=== PATIENT | female | born 1960 | race Two or more races ===

== ENCOUNTER 2020-09-17 13:00 | Outpatient (REF) | payer MEDICAID, SELFPAY ==
--- NOTE | ~2020-09-17 | XR_ITS ---
EXAMINATION: XR HIP, LEFT CLINICAL INFORMATION: Pain COMPARISON: Previous x-ray August 2018 TECHNIQUE: Two views of the left hip. FINDINGS: Bone alignment is normal. No fracture or dislocation is seen. There is mild joint space narrowing at the left hip joint. Soft tissues are unremarkable. XR/XR hip LT min 2V IMPRESSION: Mild joint space narrowing at the left hip joint.
== END 2020-09-17 13:01 | disposition home or self-care (01) ==
LOC: HO.XRAY 13:00
PROVIDERS: PCP Internal Medicine; Visit Provider Internal Medicine
DX: M25.552 Pain in left hip (principal)
CPT/HCPCS: 73502

== ENCOUNTER → 2020-10-22 12:54 | Outpatient (BNVA) | payer MEDICAID, SELFPAY | PROVIDERS: PCP Internal Medicine; Visit Provider Physician Assistant | DX: M70.62 Trochanteric bursitis, left hip (principal) | CPT/HCPCS: 99202 ==

== ENCOUNTER 2020-12-18 08:48 | Emergency (ER) | payer MEDICAID, SELFPAY ==
--- NOTE | ~2020-12-18 | XR_ITS ---
EXAMINATION: XR CHEST CLINICAL INFORMATION: Right-sided chest pain. COMPARISON: 07/20/2019 chest radiographs. TECHNIQUE: Frontal view of the chest was obtained. FINDINGS: No significant abnormality is noted involving the heart, lungs, mediastinum, bony thorax or soft tissues. XR/XR chest 1V IMPRESSION: No acute cardiopulmonary process.
--- NOTE | 2020-12-18 09:03 | ECG_ITS ---
Test Reason : CHEST PAIN Blood Pressure : / mmHG Vent. Rate : 078 BPM Atrial Rate : 078 BPM P-R Int : 122 ms QRS Dur : 068 ms QT Int : 360 ms P-R-T Axes : 067 023 041 degrees QTc Int : 410 ms Normal sinus rhythm Normal ECG When compared with ECG of 20-JUL-2019 10:35, No significant change was found Referred By: Becka Rincon Electronically Signed By:Charlie Benoit
[2020-12-18 09:15] VITALS: BP 176/7; PULSE 80; RESP 18; O2SAT 96; BMI 82.7
--- NOTE | 2020-12-18 09:19 | ED_ITS ---
HPI - Chest Pain General Chief Complaint: General Medical Stated Complaint: CHEST PAIN Time Seen by Provider: 12/18/20 09:10 Source: patient Mode of arrival: ambulatory Limitations: no limitations History of Present Illness HPI narrative: 60 y/o female with history of DM, GERD and obesity presents to the ER with 2-3 weeks of right sided chest pain. She does not recall what she was doing when it started. It has been mostly constant and is worse with movement and palpation. She denies SOB, MICHAUD or cough. She denies N/V, diaphoresis or radiation of the pain. Her father of an [place] at 59 and her brother of a PE at 65. MD complaint: chest pain Onset (ago): week(s) (2-3) Timing of current episode: constant Prior episodes: No Pain location: right chest Pain radiation: none Severity: moderate Quality: aching Relieving factors: rest Exacerbating factors: palpation and movement Treatment prior to arrival: none Risk Factors Coronary artery disease risk factors: diabetes and hypertension Related Data Home Medications Medication Instructions Recorded Confirmed epinephrine 0.3 mg/0.3 mL 0.3 mg IM Q10M PRN 10/22/20 injection, auto-injector ibuprofen 200 mg capsule 400 mg PO Q8H 10/22/20 loratadine 10 mg capsule 10 mg PO DAILY 10/22/20 methocarbamol 500 mg tablet 500 mg PO TID 10/22/20 omeprazole 20 mg capsule,delayed 20 mg PO DAILY 10/22/20 release Previous Rx's Medication Instructions Recorded lidocaine [Lidoderm] 1 patch TOPICAL DAILY #15 ea 12/18/20 naproxen 500 mg PO BID PRN #20 tab 12/18/20 Allergies Allergy/AdvReac Type Severity Reaction Status Date / Time No Known Allergies Allergy Unknown Verified 10/22/20 13:24 [No Known Allergies*] Review of Systems Review of Systems: Constitutional: No Fever, No Chills ENT/Mouth: No sore throat, No Rhinorrhea, No Swallowing Difficulty Eyes: No Eye Pain, No Swelling, No Redness Cardiovascular: + Chest Pain, No SOB, No Orthopnea, No Edema Respiratory: No Cough, No Sputum, No Wheezing, No dyspnea Gastrointestinal: No Nausea, No Vomiting, No Diarrhea, No abdominal Pain, No Hematochezia, No Melena Genitourinary: No Dysuria, No Urinary Frequency, No Hematuria Musculoskeletal: No joint pain, + Myalgias Skin: No Skin Lesions, No rash Neuro: No Weakness, No Numbness, No Dizziness, No Headache Psych: No Anxiety/Panic, No Depression Heme/Lymph: No Bruising, No Lymphadenopathy Endocrine: No Polyuria, No Polydipsia [facility] Past Medical History Attestation statement: The following information was validated with the patient. Medical History Acid reflux Diabetes Social History Social History Alcohol intake: never Smoked in Last 30 Days: No Use of substances other than those prescribed or required for medical reasons: No Advance Directives: No Advance Directives Information Provided: No Physical Exam Vital Signs: Vital Signs: Last Vital Signs Pulse 80 12/18/20 09:15 Resp 18 12/18/20 09:15 BP 176/7 H 12/18/20 09:15 Pulse Ox 96 12/18/20 09:15 Body Mass Index 82.7 Appearance: Alert. Oriented X3. No acute distress. Eyes: Pupils equal, round and reactive to light. ENT: Pharynx normal. Neck: Normal inspection. Neck supple. CVS: Normal heart rate and rhythm. Pulses normal. Respiratory: No respiratory distress. Breath sounds normal. Right parasternal area with tenderness to palpation. No ecchymosis, no deformity, no skin changes. Abdomen: Soft and nontender. +BS x4 Skin: Skin warm and dry. Normal skin color. Normal skin turgor. No rashes. Extremities: No lower extremity edema. Neuro: Oriented X 3. No motor deficit. No sensory deficit. Course Course Course Narrative: 60 y/o female presenting with right sided chest pain x 2-3 weeks. It is reproducible on exam without radiation or respiratory symptoms. She is fully vaccinated against COVID. She appears well. BP elevated, reports is she is nervous to be in the hospital. Need to r/o ACS and PE given her family history and risk factors although given her clinical presentation this is less likely. Reevaluation(s) Reevaluation #1: Lab workup is unremarkable. Troponin and DDIMER are negative. CXR negative and labs are unremarkable. Painfree at this time. She is stable for discharge home with treatment for costochondritis/chest wall pain as her pain is likely MSK in nature. Patient agrees with plan and will return to ER if pain changes or worsens. MDM - Chest Pain Medical Records Data Attestation: I reviewed the patient's medical records. Lab Data Attestation: I reviewed the patient's lab results. Result diagrams: 12/18/20 09:48 12/18/20 09:48 Labs: Lab Results 12/18/20 12/18/20 12/18/20 Range/Units 09:48 09:48 09:48 WBC 4.7 L (4.8-10.8) X10*3/uL RBC 4.81 (4.20-5.50) X10*6/uL Hgb 13.9 (12.0-16.0) g/dl Hct 41.7 (37-47) % MCV 86.7 (80-98) fL MCH 28.9 (27.0-33.0) pg MCHC 33.3 (31.0-35.0) g/dl RDW 12.8 (11.0-16.0) % Plt Count 155 L (160-400) X10*3/uL MPV 11.9 (9.4-12.3) fL Immature Gran % (Auto) 0.2 (0.0-0.4) % Neut % (Auto) 62.1 (45-73) % Lymph % (Auto) 25.7 (20-40) % [place] % (Auto) 9.8 (2-11) % Eos % (Auto) 1.3 (0-4) % Baso % (Auto) 0.9 (0-2) % Lymph # (Auto) 1.2 (1.2-4.9) X10*3/uL [place] # (Auto) 0.5 (0.1-1.2) X10*3/uL Eos # (Auto) 0.1 (0.0-0.4) X10*3/uL Baso # (Auto) 0.0 (0.0-0.2) X10*3/uL Abs Immat Gran (auto) 0.01 (0.00-0.03) X10*3/uL Absolute Neuts (auto) 2.9 (2.0-8.3) X10*3/uL Absolute Nucleated RBC 0.000 (0.0-0.012) X10*3/uL Nucleated RBC % (auto) 0.0 (0.0-0.2) /100WBC D-Dimer < 200 NG/ML Hold Blue Top SEE NOTE Sodium 139 (135-145) mmol/L Potassium 4.0 (3.3-5.1) mmol/L Chloride 106 (96-108) mmol/L Carbon Dioxide 24 (22-29) mmol/L Anion Gap 13 (12-20) BUN 10 (9-16) mg/dL Creatinine 0.77 (0.5-1.4) mg/dL Estim Creat Clear Calc 38.2 Estimated GFR > 60 Random Glucose 181 H (60-115) mg/dL Calcium 9.1 (8.4-10.2) mg/dL Magnesium 2.1 (1.6-2.6) mg/dL Total Bilirubin 0.8 (0.0-1.0) mg/dL Direct Bilirubin 0.3 (0.0-0.5) mg/dL AST 21 (5-31) U/L ALT 21 (0-31) U/L Alkaline Phosphatase 87 (39-117) U/L Troponin I High Sens (<3.5-17.0) ng/L Total Protein 6.9 (6.5-8.0) g/dL Albumin 4.2 (3.5-5.0) g/dL /11/04 Range/Units 09:48 WBC (4.8-10.8) X10*3/uL RBC (4.20-5.50) X10*6/uL Hgb (12.0-16.0) g/dl Hct (37-47) % MCV (80-98) fL MCH (27.0-33.0) pg MCHC (31.0-35.0) g/dl RDW (11.0-16.0) % Plt Count (160-400) X10*3/uL MPV (9.4-12.3) fL Immature Gran % (Auto) (0.0-0.4) % Neut % (Auto) (45-73) % Lymph % (Auto) (20-40) % Dixie % (Auto) (2-11) % Eos % (Auto) (0-4) % Baso % (Auto) (0-2) % Lymph # (Auto) (1.2-4.9) X10*3/uL [place] # (Auto) (0.1-1.2) X10*3/uL Eos # (Auto) (0.0-0.4) X10*3/uL Baso # (Auto) (0.0-0.2) X10*3/uL Abs Immat Gran (auto) (0.00-0.03) X10*3/uL Absolute Neuts (auto) (2.0-8.3) X10*3/uL Absolute Nucleated RBC (0.0-0.012) X10*3/uL Nucleated RBC % (auto) (0.0-0.2) /100WBC D-Dimer NG/ML Hold Blue Top Sodium (135-145) mmol/L Potassium (3.3-5.1) mmol/L Chloride (96-108) mmol/L Carbon Dioxide (22-29) mmol/L Anion Gap (12-20) BUN (9-16) mg/dL Creatinine (0.5-1.4) mg/dL Estim Creat Clear Calc Estimated GFR Random Glucose (60-115) mg/dL Calcium (8.4-10.2) mg/dL Magnesium (1.6-2.6) mg/dL Total Bilirubin (0.0-1.0) mg/dL Direct Bilirubin (0.0-0.5) mg/dL AST (5-31) U/L ALT (0-31) U/L Alkaline Phosphatase (39-117) U/L Troponin I High Sens < 3.5 (<3.5-17.0) ng/L Total Protein (6.5-8.0) g/dL Albumin (3.5-5.0) g/dL ECG Data ECG #1: Attestation: I personally reviewed and interpreted this ECG as follows: ECG interpretation date: 12/18/20 ECG interpretation time: 10:30 Prior ECG tracings: available for review Interpretation: normal sinus rhythm, HR 78 bpm, normal SC interval, normal QTc, no ST segment elevations or depressions. Discharge Plan Discharge Clinical Impression: Chest wall pain Patient Disposition: Home, Self-Care Instructions: Chest Wall Pain (ED) Additional Instructions: Your EKG today was normal. Your lab workup today was normal. It is most likely that your chest pain is muscular in nature. Recommend rest and trial of anti-inflammatory medication. Take the prescribed medication as directed. Follow up with your doctor next week. If you have worsening pain, or if pain changes, come back to the ER for further evaluation. Prescriptions: New lidocaine [Lidoderm] 5 % adhesive patch,medicated 1 patch topical DAILY Qty: 15 RF: 0 naproxen 500 mg tablet 500 mg PO BID PRN (Reason: pain) Qty: 20 RF: 0
[2020-12-18 09:54] LABS: MANUAL DIFF FLAG NO
[2020-12-18 09:55] LABS: Basophils Percent Auto 0.9 % (0-2); Eosinophils Absolute Auto 0.1 X10*3/uL (0.0-0.4); Eosinophils Percent Auto 1.3 % (0-4); Hematocrit 41.7 % (37-47); Hemoglobin 13.9 g/dl (12.0-16.0); Imm Gran Abs Auto 0.01 X10*3/uL (0.00-0.03); Imm Gran Pct Auto 0.2 % (0.0-0.4); Lymphocytes Absolute Auto 1.2 X10*3/uL (1.2-4.9); Lymphocytes Percent Auto 25.7 % (20-40); Mean Corpuscular HGB Conc 33.3 g/dl (31.0-35.0); Mean Corpuscular Hemoglobin 28.9 pg (27.0-33.0); Mean Corpuscular Volume 86.7 fL (80-98); Mean Platelet Volume 11.9 fL (9.4-12.3); Monocytes Absolute Auto 0.5 X10*3/uL (0.1-1.2); Monocytes Percent Auto 9.8 % (2-11); Neutrophils Absolute Auto 2.9 X10*3/uL (2.0-8.3); Neutrophils Percent Auto 62.1 % (45-73); Platelet Count 155 X10*3/uL (160-400); Red Blood Count 4.81 X10*6/uL (4.20-5.50); Red Cell Distribution Width 12.8 % (11.0-16.0); White Blood Count 4.7 X10*3/uL (4.8-10.8)
[2020-12-18 10:06] LABS: D Dimer < 200 NG/ML
[2020-12-18 10:20] LABS: Alanine Aminotransferase 21 U/L (0-31); Albumin Level 4.2 g/dL (3.5-5.0); Alkaline Phosphatase 87 U/L (39-117); Anion Gap 13 (12-20); Aspartate Amino Transferase 21 U/L (5-31); Bilirubin Direct 0.3 mg/dL (0.0-0.5); Bilirubin Total 0.8 mg/dL (0.0-1.0); Blood Urea Nitrogen 10 mg/dL (9-16); Calcium 9.1 mg/dL (8.4-10.2); Carbon Dioxide 24 mmol/L (22-29); Chloride 106 mmol/L (96-108); Creatinine Clr Calc Pharmacy 38.2; Estimated Glomerular Filt Rate > 60; Glucose Random 181 mg/dL (60-115); Magnesium 2.1 mg/dL (1.6-2.6); Sodium 139 mmol/L (135-145); Total Protein 6.9 g/dL (6.5-8.0)
[2020-12-18 10:22] LABS: Troponin-I High Sensitivity < 3.5 ng/L (<3.5-17.0)
== END 2020-12-18 10:38 | disposition home or self-care (01) ==
PROVIDERS: Physician Assistant; Emergency Provider Emergency Medicine Emergency Medical Services; PCP Internal Medicine
DX: R07.89 Other chest pain (principal); E11.9 Type 2 diabetes mellitus without complications; K21.9 Gastro-esophageal reflux disease without esophagitis
CPT/HCPCS: 36415; 71045; 80048; 80076; 83735; 84484; 85025; 85379; 93005; 99283; 99284

== ENCOUNTER 2021-05-29 08:27 | Emergency (ER) | payer MEDICAID, SELFPAY ==
[2021-05-29 08:36] VITALS: BP 160/76; PULSE 72; RESP 18; TEMP 36.9; O2SAT 97; BMI 31.8
[2021-05-29 08:53] VITALS: BP 146/80; PULSE 65; RESP 17; O2SAT 96
--- NOTE | 2021-05-29 09:11 | ED_ITS ---
HPI - General Adult General Chief complaint: General Medical Stated complaint: HBP Time Seen by Provider: 05/29/21 09:00 History of Present Illness HPI narrative: Patient is 61-year-old female presents today with having elevated blood pressure. Mild headache that is in the frontal area no focal weakness. No fever no chills no nausea no vomiting. Patient from home. Patient at home noted a blood pressure 138/80. Patient denies any change in speech. She is from home. She does have a history diabetes. Currently not on any blood pressure medicine Related Data Home Medications Medication Instructions Recorded Confirmed epinephrine 0.3 mg/0.3 mL 0.3 mg IM Q10M PRN 10/22/20 injection, auto-injector (EpiPen) ibuprofen 200 mg capsule 400 mg PO Q8H 10/22/20 loratadine 10 mg capsule 10 mg PO DAILY 10/22/20 methocarbamol 500 mg tablet 500 mg PO TID 10/22/20 omeprazole 20 mg capsule,delayed 20 mg PO DAILY 10/22/20 release Previous Rx's Medication Instructions Recorded lidocaine 5 % topical patch 1 patch TOPICAL DAILY #15 ea 12/18/20 (Lidoderm) naproxen 500 mg tablet 500 mg PO BID PRN #20 tab 12/18/20 Allergies Allergy/AdvReac Type Severity Reaction Status Date / Time No Known Allergies Allergy Unknown Verified 05/29/21 08:36 [No Known Allergies*] Review of Systems Review of Systems: Positive mild headache no nausea no vomiting no fever no chills no focal weakness. The headaches been gradual in onset Yes all other systems are reviewed and are negative [facility] Past Medical History Attestation statement: The following information was validated with the patient. Medical History Acid reflux Diabetes Social History Social History Alcohol intake: never Patient Tobacco Use Status: Never used Tobacco Use of substances other than those prescribed or required for medical reasons: No Advance Directives: No Advance Directives Information Provided: No Physical Exam Vital Signs: Vital Signs: Last Vital Signs Temp 98.4 F 05/29/21 08:36 Pulse 65 05/29/21 08:53 Resp 17 05/29/21 08:53 BP 146/80 H 05/29/21 08:53 Pulse Ox 96 05/29/21 08:53 Body Mass Index 31.8 Appearance: Alert. Oriented X3. No acute distress. Eyes: Pupils equal, round and reactive to light. ENT: Pharynx normal. Neck: Normal inspection. Neck supple. No lymph nodes noted. No crepitus CVS: Normal heart rate and rhythm. Pulses normal. Normal S1 and S2 Respiratory: No respiratory distress. Breath sounds normal. No Wheezing. No ral es Abdomen: Soft and nontender. No rigidity. No distention. good BS x4 Skin: Skin warm and dry. Normal skin color. Normal skin turgor. Extremities: No lower extremity edema. Neurovascular intact to all extremities. No Lacerations. No Rash Neuro: Oriented X 3. No motor deficit. No sensory deficit. Moving all extermities. No slurred speech Medical Decision Making MDM Narrative Medical decision making narrative: Well-appearing blood pressure is actually 140s over 80. No distress. Electrolytes are normal. The sed rates normal no evidence for temporal arteritis. Patient neurologically intact. No fever no chills. Will discharge patient home currently in stable condition Lab Data Result diagrams: 05/29/21 09:15 05/29/21 09:15 Labs: Lab Results 05/29/21 05/29/21 05/29/21 Range/Units 09:15 09:15 09:15 WBC 5.6 (4.8-10.8) X10*3/uL RBC 4.91 (4.20-5.50) X10*6/uL Hgb 14.1 (12.0-16.0) g/dl Hct 41.8 (37.0-47.0) % MCV 85.1 (80.0-98.0) fL MCH 28.7 (27.0-33.0) pg MCHC 33.7 (31.0-35.0) g/dl RDW 12.7 (11.0-16.0) % Plt Count 168 (160-400) X10*3/uL MPV 11.7 (9.4-12.3) fL Immature Gran % (Auto) 0.4 (0.0-0.4) % Neut % (Auto) 54.6 (45-73) % Lymph % (Auto) 35.2 (20-40) % [place] % (Auto) 7.3 (2-11) % Eos % (Auto) 1.6 (0-4) % Baso % (Auto) 0.9 (0-2) % Lymph # (Auto) 2.0 (1.2-4.9) X10*3/uL [place] # (Auto) 0.4 (0.1-1.2) X10*3/uL Eos # (Auto) 0.1 (0.0-0.4) X10*3/uL Baso # (Auto) 0.1 (0.0-0.2) X10*3/uL Abs Immat Gran (auto) 0.02 (0.00-0.03) X10*3/uL Absolute Neuts (auto) 3.1 (2.0-8.3) x10*3/uL Absolute Nucleated RBC 0.000 (0.0-0.012) X10*3/uL Nucleated RBC % (auto) 0.0 (0.0-0.2) /100WBC ESR 13 (0-20) MM/HR Sodium 142 (135-145) mmol/L Potassium 4.7 (3.3-5.1) mmol/L Chloride 107 (96-108) mmol/L Carbon Dioxide 27 (22-29) mmol/L Anion Gap 13 (12-20) BUN 10 (9-16) mg/dL Creatinine 0.73 (0.5-1.4) mg/dL Estim Creat Clear Calc 82.9 Estimated GFR > 60 Random Glucose 122 H (60-115) mg/dL Calcium 9.3 (8.4-10.2) mg/dL Discharge Plan Discharge Clinical Impression: Hypertension Patient Disposition: Home, Self-Care Instructions: Hypertension (ED) Prescriptions: No Action lidocaine [Lidoderm] 5 % adhesive patch,medicated 1 patch topical DAILY Qty: 15 RF: 0 naproxen 500 mg tablet 500 mg PO BID PRN (Reason: pain) Qty: 20 RF: 0 Referrals: Gracie Whitfield MD [Primary Care Provider] - 2 days
[2021-05-29 09:19] LABS: MANUAL DIFF FLAG NO
[2021-05-29 09:22] LABS: Basophils Absolute Auto 0.1 X10*3/uL (0.0-0.2); Basophils Percent Auto 0.9 % (0-2); Eosinophils Absolute Auto 0.1 X10*3/uL (0.0-0.4); Eosinophils Percent Auto 1.6 % (0-4); Hematocrit 41.8 % (37.0-47.0); Hemoglobin 14.1 g/dl (12.0-16.0); Imm Gran Abs Auto 0.02 X10*3/uL (0.00-0.03); Imm Gran Pct Auto 0.4 % (0.0-0.4); Lymphocytes Percent Auto 35.2 % (20-40); Mean Corpuscular HGB Conc 33.7 g/dl (31.0-35.0); Mean Corpuscular Hemoglobin 28.7 pg (27.0-33.0); Mean Corpuscular Volume 85.1 fL (80.0-98.0); Mean Platelet Volume 11.7 fL (9.4-12.3); Monocytes Absolute Auto 0.4 X10*3/uL (0.1-1.2); Monocytes Percent Auto 7.3 % (2-11); Neutrophils Absolute Auto 3.1 x10*3/uL (2.0-8.3); Neutrophils Percent Auto 54.6 % (45-73); Platelet Count 168 X10*3/uL (160-400); Red Blood Count 4.91 X10*6/uL (4.20-5.50); Red Cell Distribution Width 12.7 % (11.0-16.0); White Blood Count 5.6 X10*3/uL (4.8-10.8)
[2021-05-29] MEDS: Acetaminophen 325 MG TABLET 650 MG PO (09:25)
[2021-05-29 09:44] LABS: Anion Gap 13 (12-20); Blood Urea Nitrogen 10 mg/dL (9-16); Calcium 9.3 mg/dL (8.4-10.2); Carbon Dioxide 27 mmol/L (22-29); Chloride 107 mmol/L (96-108); Creatinine Clr Calc Pharmacy 82.9; Estimated Glomerular Filt Rate > 60; Glucose Random 122 mg/dL (60-115); Potassium 4.7 mmol/L (3.3-5.1); Sodium 142 mmol/L (135-145)
[2021-05-29 10:28] LABS: Erythrocyte Sedimentation Rate 13 MM/HR (0-20)
== END 2021-05-29 10:00 | disposition left against medical advice (07) ==
PROVIDERS: Emergency Provider Emergency Medicine Emergency Medical Services; PCP Internal Medicine
DX: I10 Essential (primary) hypertension (principal); Z79.899 Other long term (current) drug therapy
CPT/HCPCS: 36415; 80048; 85025; 85652; 99283; 99284

== ENCOUNTER 2021-06-21 08:12 | Emergency (ER) | payer MEDICAID, SELFPAY ==
--- NOTE | ~2021-06-21 | XR_ITS ---
EXAMINATION: XR CHEST CLINICAL INFORMATION: SOB and cough COMPARISON: Chest 12/18/2020 TECHNIQUE: 2 views of the chest were obtained. FINDINGS: The lungs are well-expanded and clear of acute process. The heart size and pulmonary vascularity is normal. No gross bony abnormality seen. XR/XR chest 2V IMPRESSION: Unremarkable chest examination. No major change from 12/18/2020.
[2021-06-21 08:47] VITALS: BP 151/72; PULSE 74; RESP 18; TEMP 36.8; O2SAT 96; BMI 25.6
--- NOTE | 2021-06-21 08:54 | ED.URI ---
HPI - URI/Sore Throat General Chief Complaint: Dyspnea Stated Complaint: asthma Time Seen by Provider: 06/21/21 08:50 Source: patient Mode of arrival: ambulatory Limitations: no limitations History of Present Illness HPI Narrative: 61 yo female presented c/o cough dry X 3 days,no fever no chills,she has hx of asthma MD elicited complaint: cough Pertinent past history: asthma Onset (ago): day(s) (3) Consistency: constant Severity: moderate Description of mucous: clear Able to tolerate fluids by mouth: Yes Exacerbating factors: nothing Relieving factors: nothing Associated symptoms: denies other symptoms Related Data Home Medications Medication Instructions Recorded Confirmed epinephrine 0.3 mg/0.3 mL 0.3 mg IM Q10M PRN 10/22/20 injection, auto-injector (EpiPen) ibuprofen 200 mg capsule 400 mg PO Q8H 10/22/20 loratadine 10 mg capsule 10 mg PO DAILY 10/22/20 methocarbamol 500 mg tablet 500 mg PO TID 10/22/20 omeprazole 20 mg capsule,delayed 20 mg PO DAILY 10/22/20 release Previous Rx's Medication Instructions Recorded lidocaine 5 % topical patch 1 patch TOPICAL DAILY #15 ea 12/18/20 (Lidoderm) naproxen 500 mg tablet 500 mg PO BID PRN #20 tab 12/18/20 albuterol sulfate 90 mcg/actuation 2 puff INHALATION QID #8.5 g 06/21/21 aerosol inhaler (ProAir HFA) prednisone 20 mg tablet 60 mg PO DAILY #9 tab 06/21/21 Allergies Allergy/AdvReac Type Severity Reaction Status Date / Time No Known Allergies Allergy Unknown Verified 05/29/21 08:36 [No Known Allergies*] Review of Systems Review of Systems: Yes all other systems are reviewed and are negative Constitutional: Constitutional: Reports no additional constitutional complaints ENT: Reports system reviewed and no additional complaints, except as documented Cardiovascular: Cardiovascular: Reports no additional cardiovascular complaints Respiratory: Respiratory: Reports cough Gastrointestinal: Gastrointestinal: Reports no additional gastrointestinal complaints PMFSH Past Medical History Medical History Acid reflux Diabetes Social History Social History Alcohol intake: never Patient Tobacco Use Status: Never used Tobacco Use of substances other than those prescribed or required for medical reasons: No Advance Directives: Yes Advance Directives Information Provided: Yes Advance Directives on File: No Physical Exam Vital Signs: Vital Signs: Last Vital Signs Temp 98.2 F 06/21/21 08:47 Pulse 78 06/21/21 10:35 Resp 18 06/21/21 10:35 BP 144/80 H 06/21/21 10:35 Pulse Ox 95 06/21/21 10:35 BMI result Body Mass Index 25.6 Const: General: cooperative, healthy appearing, comfortable, no acute distress and well developed Nutritional Appearance: average body habitus Limitations: no limitations HENMT: Head: Yes normal to inspection General nose exam: Normal external nose present Face and sinus: Yes normal facial exam Mouth: Normal oral and palatal mucosa present Throat: Yes posterior oropharynx normal Neck: Neck: Yes normal visual inspection, Yes full ROM and Yes no lymphadenopathy Chest: Chest palpation & inspection: normal inspection of the chest Resp: Effort & Inspection: normal respiratory effort and able to speak in complete sentences Auscultation: no rales, rhonchi and no wheezes Cardio: Jugular venous distension: no JVD Rate: regular rate Rhythm: regular rhythm GI: Inspection: Yes normal to inspection Percussion: Yes normal to percussion Skin: General skin exam: no rashes or lesions noted and elasticity normal Rashes: no rashes Course Reevaluation(s) Reevaluation #1: She loos well,VS stable,CXR negative ,02 Sat RA,no tachypnea.OK to d/c home . I will give 3 dose of prednisone and refill the inhaler she has hx of astma .She is very comfortable with the plan MDM - URI/Sore Throat Lab Data Labs: Lab Results 06/21/21 Range/Units 10:03 Influenza Type A (PCR) NEGATIVE (Negative) Influenza Type B (PCR) NEGATIVE (Negative) RSV RNA Qual (PCR) NEGATIVE (Negative) SARS-CoV-2 RNA (RT-PCR) NEGATIVE (Negative) Imaging Data Chest x-ray: Radiologist's impression: EXAMINATION: XR CHEST CLINICAL INFORMATION: SOB and cough COMPARISON: Chest 12/18/2020 TECHNIQUE: 2 views of the chest were obtained. FINDINGS: The lungs are well-expanded and clear of acute process. The heart size and pulmonary vascularity is normal. No gross bony abnormality seen. XR/XR chest 2V IMPRESSION: Unremarkable chest examination. No major change from 12/18/2020. Dictated By: Fahad Greene MD Signed By: <Electronically signed by Fahad Greene MD in OV> 06/21/21 0947 Discharge Plan Discharge Clinical Impression: Bronchitis Patient Disposition: Home, Self-Care Instructions: Upper Respiratory Infection (ED) Additional Instructions: follow up with your Primary care Doctor,return if worse,any concern Prescriptions: New prednisone 20 mg tablet 60 mg PO DAILY Qty: 9 RF: 0 albuterol sulfate [ProAir HFA] 90 mcg/actuation HFA aerosol inhaler 2 puff inhalation QID Qty: 8.5 RF: 0 No Action lidocaine [Lidoderm] 5 % adhesive patch,medicated 1 patch topical DAILY Qty: 15 RF: 0 naproxen 500 mg tablet 500 mg PO BID PRN (Reason: pain) Qty: 20 RF: 0 Referrals: Gracie Whitfield MD [Primary Care Provider] - 2 days Interventions: ED Discharge Assessment Last Done: 06/21/21 10:38 Discharge Date/Time: 06/21/21 10:39
--- NOTE | 2021-06-21 09:45 | PC.NURSE ---
PT REFUSED COVID/SARS SWAB, AWARE
[2021-06-21] MEDS: predniSONE 20 MG TABLET 60 MG PO (10:31)
[2021-06-21 10:35] VITALS: BP 144/80; PULSE 78; RESP 18; O2SAT 95
[2021-06-21 10:46] LABS: Influenza A PCR NEGATIVE (Negative); Influenza B PCR NEGATIVE (Negative); Resp Syncy Virus RNA Qual PCR NEGATIVE (Negative); SARS COV2 PCR INHOUSE NEGATIVE (Negative)
== END 2021-06-21 10:39 | disposition home or self-care (01) ==
PROVIDERS: Emergency Provider Emergency Medicine; PCP Internal Medicine
DX: J40 Bronchitis, not specified as acute or chronic (principal); Z20.822 Contact with and (suspected) exposure to COVID-19
CPT/HCPCS: 0241U; 36415; 71046; 99283; 99284

== ENCOUNTER → 2021-10-01 14:10 | Outpatient (BNVA) | payer MEDICAID, SELFPAY | PROVIDERS: PCP Internal Medicine; Referring Provider Internal Medicine; Visit Provider Nurse Practitioner | DX: K59.04 Chronic idiopathic constipation (principal); K21.9 Gastro-esophageal reflux disease without esophagitis; R10.9 Unspecified abdominal pain | CPT/HCPCS: 99202 ==

== ENCOUNTER 2021-11-08 | Outpatient (REF) | payer MEDICAID, SELFPAY ==
--- NOTE | ~2021-11-08 | FL_ITS ---
EXAMINATION: XR UPPER GI SERIES WITH SMALL BOWEL CLINICAL INFORMATION: Chronic idiopathic constipation. COMPARISON: None. TECHNIQUE: Routine upper GI air-contrast study was performed in upright and lying position. Subsequently one glass of more barium was administered and sequential images of abdomen were obtained for small bowel imaging. FINDINGS: Following oral administration of thick barium and effervescent granules, there is normal propagation of bolus from the oral cavity through the pharynx and esophagus and into the stomach without any evidence of obstruction, narrowing or stricture. On placing patient supine and prone lying, the course, caliber and peristalsis of the stomach, duodenal bulb and the sweep are normal. The mucosal pattern of the stomach and the duodenum is normal. There is a large gastroesophageal reflux with sliding hiatal hernia. Sequential images obtained of the small bowel reveal small bowel transit time of 30 minutes. The course, caliber and peristalsis of the small bowel loops are normal. No mural thickening or narrowing of small bowel segment seen. Spot images of ileocecal junction reveals a widely patent ileocecal junction with a normal terminal ileum. The appendix is normal caliber. The cecum is normal caliber. Visualized ascending and the transverse colon are unremarkable. FLUOROSCOPY TIME: 2.1 minute DOSE AREA PRODUCT: 31.998 uGy-m2 (microgray-meter squared) FL/FL upper GI small bowel IMPRESSION: Large gastroesophageal reflux without hiatal hernia. Normal small bowel follow-through with normal small bowel transit time of 30 minutes. Visualized ileocecal junction, appendix and the cecum are normal.
== END 2021-11-08 00:01 ==
LOC: HO.XRAY
PROVIDERS: PCP Internal Medicine; Visit Provider Nurse Practitioner
DX: K59.04 Chronic idiopathic constipation (principal); K21.9 Gastro-esophageal reflux disease without esophagitis; R10.9 Unspecified abdominal pain
CPT/HCPCS: 74240; 74248

== ENCOUNTER → 2021-11-11 14:21 | Outpatient (BNVA) | payer MEDICAID, SELFPAY | PROVIDERS: PCP Internal Medicine; Referring Provider Internal Medicine; Visit Provider Nurse Practitioner | DX: K59.04 Chronic idiopathic constipation (principal); K21.9 Gastro-esophageal reflux disease without esophagitis | CPT/HCPCS: 99212 ==

== ENCOUNTER 2022-01-11 08:16 | Outpatient (REF) | payer MEDICAID, SELFPAY ==
--- NOTE | ~2022-01-11 | MM_ITS ---
EXAMINATION: MM SCREENING DIGITAL BREAST TOMOSYNTHESIS, BILATERAL CLINICAL INFORMATION: Screening. Asymptomatic. The lifetime risk of breast cancer based on the Tyrer-Cuzick Model is 8%. COMPARISON: Mammography: 08/13/2019, 06/11/2018, 06/07/2017 TECHNIQUE: Digital breast tomosynthesis is performed in both the craniocaudal and mediolateral oblique views along with computer-aided detection (CAD). Synthesized 2D images are generated from the tomosynthesis. FINDINGS: There are scattered areas of fibroglandular density (ACR BI-RADS breast composition Category b). There are no significant masses, abnormal calcifications, or other abnormalities. Parenchymal pattern is similar to prior studies. No significant changes. MM/MM tomosynthesis screening BI IMPRESSION: No mammographic evidence of malignancy. ASSESSMENT: BI-RADS 1: Negative RECOMMENDATION: Routine annual mammography screening. This patient's information was entered into a reminder system with a target due date for their next mammogram.
== END 2022-01-11 08:17 | disposition home or self-care (01) ==
LOC: HO.MAMMO 08:16
PROVIDERS: PCP Internal Medicine; Visit Provider Internal Medicine
DX: Z12.31 Encounter for screening mammogram for malignant neoplasm of breast (principal)
CPT/HCPCS: 77063; 77067

== ENCOUNTER 2022-05-03 08:17 | Emergency (ER) | payer MEDICAID, SELFPAY ==
[2022-05-03 08:27] VITALS: BP 145/79; PULSE 76; RESP 16; TEMP 36.6; O2SAT 96; BMI 31.8
--- NOTE | 2022-05-03 09:10 | ED_ITS ---
HPI - Back Pain/Injury General Chief Complaint: Back Pain/Injury Stated Complaint: R side hip pain barbra into leg Time Seen by Provider: 05/03/22 08:56 Related Data Home Medications Medication Instructions Recorded Confirmed epinephrine 0.3 mg/0.3 mL 0.3 mg IM Q10M PRN 10/22/20 injection, auto-injector (EpiPen) ibuprofen 200 mg capsule 400 mg PO Q8H 10/22/20 loratadine 10 mg capsule 10 mg PO DAILY 10/22/20 methocarbamol 500 mg tablet 500 mg PO TID 10/22/20 prednisone 20 mg tablet 60 mg PO DAILY 10/01/21 Previous Rx's Medication Instructions Recorded lidocaine 5 % topical patch 1 patch topical DAILY #15 ea 12/18/20 (Lidoderm) naproxen 500 mg tablet 500 mg PO BID PRN pain #20 tabs 12/18/20 albuterol sulfate 90 mcg/actuation 2 puff inhalation QID prn wheezing 06/21/21 aerosol inhaler (ProAir HFA) #8.5 grams linaclotide 72 mcg capsule 72 mcg PO QAM #30 caps 11/11/21 (Linzess) omeprazole 20 mg capsule,delayed 20 mg PO DAILY #30 caps 11/11/21 release cyclobenzaprine 10 mg tablet 10 mg PO BEDTIME Pain, spasm #15 05/03/22 tabs prednisone 20 mg tablet 40 mg PO DAILY 7 days #14 tabs 05/03/22 Allergies Allergy/AdvReac Type Severity Reaction Status Date / Time No Known Allergies Allergy Unknown Verified 11/11/21 14:37 [No Known Allergies*] [facility] Past Medical History Medical History (Updated 05/03/22 @ 09:12 by Tito Boothe MD) Diabetes Surgical History (Updated 10/01/21 @ 14:49 by RAFA Paul) H/O section complicating H/O colonoscopy History of endoscopy Social History Social History Alcohol intake: never Patient Tobacco Use Status: Never used Tobacco Advance Directives: No Advance Directives Information Provided: Yes Physical Exam Vital Signs: Vital Signs: Last Vital Signs Temp 98 F 05/03/22 08:27 Pulse 76 05/03/22 08:27 Resp 16 05/03/22 08:27 BP 145/79 H 05/03/22 08:27 Pulse Ox 96 05/03/22 08:27 O2 Del Method 05/03/22 08:27 BMI result Body Mass Index 31.8 Discharge Plan Discharge Clinical Impression: Lumbar back pain, Acute lumbar radiculopathy Patient Disposition: Home, Self-Care Instructions: Lumbar Radiculopathy (ED) Additional Instructions: Your exam is consistent with inflammation of your lower back muscles which is causing inflammation of the nerves that go down your leg. Stop taking ibuprofen while you taking prednisone Take prednisone 20 mg pills, 2 pills once a day for 7 days. While you are taking prednisone, do not take any NSAIDs (Motrin, Advil, ibuprofen, Aleve, naproxen).. Take Tylenol (acetaminophen) 500 mg pills, 2 pills every 6 hours as needed for pain. Take Flexeril (cyclobenzaprine) 10 mg pills, 1 pill every at night as needed for pain or muscle spasm. This is a prescription medication. This medication will make you sleepy, therefore do not drive or work while taking this medication. Apply ice for 15 minutes to the area that hurts on your back, then apply a heating a pad on low for 15 minutes. Do this 4-6 times a day to help reduce the pain in your back. Continue with normal activities as tolerated since staying in bed and not moving around will make your pain worse. You can also try over the counter lidocaine patches as directed on the box to help with the pain. Please return to the Emergency Department or see your doctor immediately if your symptoms get worse or if you develop any new symptoms that are concerning you. Follow up with your doctor in 2 day. Please read the other printed discharge instructions on lumbar radiculopathy pain. Prescriptions: New prednisone 20 mg tablet 40 mg PO DAILY 7 Days Qty: 14 0RF cyclobenzaprine 10 mg tablet 10 mg PO BEDTIME Qty: 15 0RF No Action lidocaine [Lidoderm] 5 % adhesive patch,medicated 1 patch topical DAILY Qty: 15 0RF Rx Instructions: leave on most painful area for up to 12 hrs naproxen 500 mg tablet 500 mg PO BID PRN (Reason: pain) Qty: 20 0RF albuterol sulfate [ProAir HFA] 90 mcg/actuation HFA aerosol inhaler 2 puff inhalation QID Qty: 8.5 0RF ibuprofen 200 mg capsule 400 mg PO Q8H epinephrine [EpiPen] 0.3 mg/0.3 mL auto-injector 0.3 mg IM Q10M PRN Rx Instructions: for 2 doses loratadine 10 mg capsule 10 mg PO DAILY methocarbamol 500 mg tablet 500 mg PO TID Linzess 72 mcg capsule 72 mcg PO QAM Qty: 30 6RF omeprazole 20 mg capsule,delayed release(DR/EC) 20 mg PO DAILY Qty: 30 6RF prednisone 20 mg tablet 60 mg PO DAILY
== END 2022-05-03 09:30 | disposition home or self-care (01) ==
PROVIDERS: Emergency Provider Emergency Medicine Emergency Medical Services; PCP Internal Medicine
DX: M54.16 Radiculopathy, lumbar region (principal); M54.50 Low back pain, unspecified; M25.551 Pain in right hip; Z79.899 Other long term (current) drug therapy
CPT/HCPCS: 99283

== ENCOUNTER 2022-05-16 14:15 | Outpatient (REF) | payer MEDICAID, SELFPAY ==
--- NOTE | ~2022-05-16 | US_ITS ---
EXAMINATION: US PELVIS CLINICAL INFORMATION: Pain COMPARISON: Previous exam May 2008 TECHNIQUE: Ultrasound of the pelvis is performed using both transabdominal and transvaginal transducers along with Doppler. Transvaginal imaging is performed due to inadequate visualization transabdominally. FINDINGS: The uterus is anteverted and measures 5.1 x 3 x 3.2 cm. There are 3 focal uterine lesions suggestive of fibroids measuring 1.4 x 1 x 1.5 cm in the left upper uterine body, 1 x 0.9 x 1 cm in the posterior uterine body and 3 x 5 x 4 mm in the left upper uterine body. Endometrial thickness is normal measuring 0.4 cm. There is trace fluid seen in the endometrium. The ovaries are not identified. No adnexal mass is seen. There is no fluid in the pelvis. US/US pelvic and transvaginal IMPRESSION: Small uterine fibroids. Normal thickness endometrium. Ovaries not seen.
== END 2022-05-16 14:16 | disposition home or self-care (01) ==
LOC: HO.US 14:15
PROVIDERS: Visit Provider Internal Medicine
DX: R10.2 Pelvic and perineal pain (principal)
CPT/HCPCS: 76830; 76856

== ENCOUNTER 2022-06-16 15:33 | Outpatient (REF) | payer MEDICAID, SELFPAY ==
[2022-06-17 01:25] LABS: CT PCR NOT DETECTED (Not Detect.); NG PCR NOT DETECTED (Not Detect.)
[2022-06-17 13:05] LABS: BV Int Neg Control Negative (Negative); BV Int Pos Control Positive (Positive)
[2022-06-21 07:39] LABS: HPV mRNA E6/E7 rflx Not Detected (Not Detected)
== END 2022-06-16 15:34 | disposition home or self-care (01) ==
LOC: HO.LNP 15:33
PROVIDERS: Visit Provider Advanced Practice Midwife
DX: Z01.419 Encounter for gynecological examination (general) (routine) without abnormal findings (principal); Z11.51 Encounter for screening for human papillomavirus (HPV); R10.2 Pelvic and perineal pain
CPT/HCPCS: 87480; 87491; 87510; 87591; 87624; 87660; 88142; 99212

== ENCOUNTER → 2022-06-23 14:18 | Outpatient (BNVA) | payer MEDICAID, SELFPAY | PROVIDERS: PCP Internal Medicine; Visit Provider Surgery Vascular Surgery | DX: I83.12 Varicose veins of left lower extremity with inflammation (principal) | CPT/HCPCS: 99212 ==

== ENCOUNTER 2022-06-29 10:04 | Outpatient (REF) | payer MEDICAID, SELFPAY ==
--- NOTE | ~2022-06-29 | XR_ITS ---
EXAMINATION: XR FOOT, LEFT CLINICAL INFORMATION: Left foot pain base of second toe for 2 months COMPARISON: None TECHNIQUE: 3 views of the left foot. FINDINGS: Bones have normal alignment throughout the foot. No fracture or subluxation. There are enthesophytes at the posterior and plantar surfaces of the calcaneus. Joint spaces are generally well-preserved throughout the foot. No erosions or periostitis. No focal soft tissue swelling or radiopaque foreign body. No significant radiographic findings at the level of the second toe. XR/XR foot LT min 3V IMPRESSION: * The toes are unremarkable. * Incidentally noted are enthesophytes at the posterior and plantar surfaces of the calcaneus.
== END 2022-06-29 10:05 | disposition home or self-care (01) ==
LOC: HO.LAB 10:04
PROVIDERS: Visit Provider Family Medicine
DX: M79.672 Pain in left foot (principal)
CPT/HCPCS: 73630

== ENCOUNTER 2022-07-29 08:50 | Emergency (ER) | payer MEDICAID, SELFPAY ==
[2022-07-29 09:03] VITALS: BP 137/77; PULSE 98; RESP 14; TEMP 37.2; O2SAT 97; BMI 30.9
--- NOTE | 2022-07-29 09:16 | ED_ITS ---
HPI - Back Pain/Injury General Chief Complaint: Back Pain/Injury Stated Complaint: Back Pain Time Seen by Provider: 07/29/22 09:03 Source: patient and old records reviewed Mode of arrival: ambulatory Limitations: no limitations History of Present Illness HPI Narrative: 21-year-old female with history of constipation, HLD, GERD, DM, asthma, gastritis who presents to the ER for evaluation of low back pain that started 3 days ago after lifting heavy box at work. She states she has had lower back pain across her entire lower back with difficulty walking and sleeping since. It is worse with bending and movement. She has been taking diclofenac, Motrin with minimal relief. She is so-so go to work today but could not because of the pain. She denies any difficulty urinating or urinary incontinence. No saddle paresthesias, numbness or weakness in the legs. She has history of back pains in the past. MD elicited complaint: back pain and back injury Pertinent past history: prior back pain Onset (ago): day(s) (3) Timing: constant Severity: moderate Similar Symptoms Previously: Yes Quality: aching and spasming Location: right lower back and left lower back Radiation: buttocks Exacerbating factors: movement, walking and lifting Relieving factors: none Context: while lifting Associated symptoms: denies other symptoms Treatments prior to arrival: NSAIDS Work related injury: Yes Related Data Home Medications Medication Instructions Recorded Confirmed epinephrine 0.3 mg/0.3 mL 0.3 mg IM Q10M PRN 10/22/20 injection, auto-injector (EpiPen) ibuprofen 200 mg capsule 400 mg PO Q8H 10/22/20 loratadine 10 mg capsule 10 mg PO DAILY 10/22/20 methocarbamol 500 mg tablet 500 mg PO TID 10/22/20 Previous Rx's Medication Instructions Recorded lidocaine 5 % topical patch 1 patch topical DAILY #15 ea 12/18/20 (Lidoderm) naproxen 500 mg tablet 500 mg PO BID PRN pain #20 tabs 12/18/20 albuterol sulfate 90 mcg/actuation 2 puff inhalation QID prn wheezing 06/21/21 aerosol inhaler (ProAir HFA) #8.5 grams linaclotide 72 mcg capsule 72 mcg PO QAM #30 caps 11/11/21 (Linzess) omeprazole 20 mg capsule,delayed 20 mg PO DAILY #30 caps 11/11/21 release methocarbamol 500 mg tablet 500 mg PO TID PRN muscle spasm #14 07/29/22 tabs Allergies Allergy/AdvReac Type Severity Reaction Status Date / Time No Known Allergies Allergy Unknown Verified 06/23/22 14:21 [No Known Allergies*] Review of Systems Review of Systems: Yes all other systems are reviewed and are negative [facility] Past Medical History Medical History Diabetes Surgical History H/O section complicating H/O colonoscopy History of endoscopy Social History Social History Household Members: Family Housing: House Alcohol intake: never Patient Tobacco Use Status: Former Tobacco user Advance Directives: No Advance Directives Information Provided: No Physical Exam Vital Signs: Vital Signs: Last Vital Signs Temp 99 F 07/29/22 09:03 Pulse 98 07/29/22 09:03 Resp 14 07/29/22 09:03 BP 137/77 07/29/22 09:03 Pulse Ox 97 07/29/22 09:03 O2 Del Method 07/29/22 09:03 BMI result Body Mass Index 30.9 Appearance: Alert. Oriented X3. No acute distress. HEENT: normal inspection CVS: Normal heart rate and rhythm. Pulses normal. Respiratory: No respiratory distress. Skin: Skin warm and dry. Normal skin color. Normal skin turgor. No rashes. Back: There is soft tissue tenderness of the entire lumbar area bilaterally. No midline tenderness. Limited flexion of the spine due to pain. Tenderness of the SI joints bilaterally as well. No CVA tenderness. Negative straight leg raise test Extremities: Normal inspection x4, no joint swelling. Neuro: Oriented X 3. No motor deficit. No sensory deficit. Steady gait. Normal DTRs. Course Course Course Narrative: 62-year-old female presents to the ER for evaluation of low back pain after heavy lifting. No red flag symptoms of low back pain. No history of IVDA. No evidence cauda equina syndrome. Most likely muscular strain and spasm. Will treat accordingly. Will have her follow-up with her primary care doctor. Will give low back exercises and stretches. interpreter and translator used to answer all questions. Patient agrees with plan. Workup provided per request. Stable for discharge home. Medical Decision Making Medical Decision Making MDM Narrative: 62-year-old female presents to the ER for evaluation of low back pain. Occurred after lifting. Most likely muscle strain and spasm, no evidence of cauda equina. No urinary symptoms to suggest UTI or pyelonephritis. Negative straight leg test on examination, less likely lumbar radiculopathy. Differential Diagnosis Differential Diagnoses: The differential diagnosis associated with the presentation includes Low back strain and spasm, lumbar radiculopathy, bulging disc, doubt cauda equina, doubt osteomyelitis or paraspinal abscess External Record Review External record reviewed: Outpatient record, Prior outpatient labs and Prior outpatient radiology Tests considered The following testing was considered but not selected: X-ray and CT scan not indicated at this time. No trauma. No red flag symptoms. Prescription Management I considered prescription management with: Pain Medication Critical Care Time Critical Care Time Critical Care Time: No Discharge Plan Discharge Clinical Impression: Strain of lumbar region Patient Disposition: Home, Self-Care Instructions: Low Back Strain (ED), Lower Back Exercises (ED) Additional Instructions: Your pain is due to muscle strain and spasm. No bending, lifting or twisting. Use ice several times per day for 20 minutes at a time for the next 48 hours and then change to heat. Take medications as prescribed to help with pain and discomfort. Follow up with your Primary Care Doctor this week. If your pain worsens, if you develop new numbness, tingling, weakness, loss of function or incontinence call 911 or come back to the ER right away for evaluation. Santiago dolor se debe a la distensi?n muscular y al espasmo. Sin doblar, levantar o torcer. Use hielo varias veces al d?a juventino 20 minutos a la vez juventino las pr?ximas 48 horas y luego cambie a calor. [place] los medicamentos seg?n lo prescrito para ayudar con el dolor y la incomodidad. Ameya un seguimiento con santiago m?dico de atenci?n primaria esta semana. Si santiago dolor empeora, si desarrolla un nuevo entumecimiento, hormigueo, debilidad, p?rdida de funci?n o incontinencia, llame al 911 o regrese a la patricia de emergencias de inmediato para gonsalo evaluaci?n. Prescriptions: New methocarbamol 500 mg tablet 500 mg PO TID PRN (Reason: muscle spasm) Qty: 14 0RF No Action lidocaine [Lidoderm] 5 % adhesive patch,medicated 1 patch topical DAILY Qty: 15 0RF Rx Instructions: leave on most painful area for up to 12 hrs naproxen 500 mg tablet 500 mg PO BID PRN (Reason: pain) Qty: 20 0RF albuterol sulfate [ProAir HFA] 90 mcg/actuation HFA aerosol inhaler 2 puff inhalation QID Qty: 8.5 0RF ibuprofen 200 mg capsule 400 mg PO Q8H epinephrine [EpiPen] 0.3 mg/0.3 mL auto-injector 0.3 mg IM Q10M PRN Rx Instructions: for 2 doses loratadine 10 mg capsule 10 mg PO DAILY methocarbamol 500 mg tablet 500 mg PO TID Linzess 72 mcg capsule 72 mcg PO QAM Qty: 30 6RF omeprazole 20 mg capsule,delayed release(DR/EC) 20 mg PO DAILY Qty: 30 6RF Referrals: Gracie Whitfield MD [Primary Care Provider] - Stand Alone Forms: Work/School Release Print Language: Mohawk
== END 2022-07-29 10:16 | disposition home or self-care (01) ==
PROVIDERS: Emergency Provider Emergency Medicine; PCP Internal Medicine
DX: M54.50 Low back pain, unspecified (principal); R26.2 Difficulty in walking, not elsewhere classified; Z79.899 Other long term (current) drug therapy
CPT/HCPCS: 99282; 99283

== ENCOUNTER 2022-08-04 10:05 | Outpatient (REF) | payer MEDICAID, SELFPAY ==
--- NOTE | ~2022-08-04 | US_ITS ---
EXAMINATION: US LOWER EXTREMITY VENOUS (REFLUX EXAM), BILATERAL CLINICAL INDICATION: Chronic venous insufficiency with lower extremity varicose veins COMPARISON: None. TECHNIQUE: Color flow triplex imaging and compression Doppler was performed to evaluate both the deep and the superficial systems bilaterally. To evaluate the superficial system, the examination was performed in the upright position. Color-flow Doppler ultrasound and compression ultrasound were utilized. In addition, maneuvers were utilized to demonstrate reflux. FINDINGS: 1. DEEP VENOUS ULTRASOUND OF THE RIGHT LOWER EXTREMITY: Common Femoral Vein: Compressible, normal respiratory variation and augmented flow. Femoral Vein: Compressible, normal color flow and augmentation. Popliteal Vein: Compressible, normal augmentation. Deep Reflux: There is no evidence of reflux in the deep system in either the common femoral vein or the popliteal vein. There is no evidence of a Sanchez's cyst. 2. SUPERFICIAL ULTRASOUND WITH DOPPLER OF RIGHT LOWER EXTREMITY: GREAT SAPHENOUS VEIN: Saphenofemoral Junction: 0.7 cm; Reflux: 0 ms Proximal Thigh: 0.6 cm; Reflux: 0 ms Mid Thigh: 0.2 cm; Reflux: 2612 ms Above Knee: 0.3 cm; Reflux: 3308 ms At Knee: 0.2 cm; Reflux: 0 ms Below Knee: 0.2 cm; Reflux: 0 ms Mid Calf: 0.2 cm; Reflux: 0 ms Ankle: 0.2 cm; Reflux: 0 ms DUPLICATED MEDIAL GREAT SAPHENOUS VEIN: Diameter: None Imaged Reflux: NA DUPLICATED LATERAL GREAT SAPHENOUS VEIN: Diameter: 0.4 cm Reflux: None SMALL SAPHENOUS VEIN: Proximal: 0.3 cm; Reflux: 0 ms Distal: 0.2 cm; Reflux: 0 ms VEIN OF GIACOMINI: None Imaged. PERFORATORS: Location: None significant Size: NA Reflux: NA VARICOSITIES: Location: None Imaged Size: NA Reflux: NA 3. DEEP VENOUS ULTRASOUND OF THE LEFT LOWER EXTREMITY: Common Femoral Vein: Compressible, normal respiratory variation and augmented flow. Femoral Vein: Compressible, normal color flow and augmentation. Popliteal Vein: Compressible, normal augmentation. Deep Reflux: There is no evidence of reflux in the deep system in either the common femoral vein or the popliteal vein. There is no evidence of a Sanchez's cyst. 4. SUPERFICIAL ULTRASOUND WITH DOPPLER OF LEFT LOWER EXTREMITY: GREAT SAPHENOUS VEIN: Saphenofemoral Junction: 0.7 cm; Reflux: 0 ms Proximal Thigh: 0.6 cm; Reflux: 0 ms Mid Thigh: 0.2 cm; Reflux: 0 ms Above Knee: 0.2 cm; Reflux: 0 ms At Knee: 0.2 cm; Reflux: 0 ms Below Knee: 0.2 cm; Reflux: 0 ms Mid Calf: 0.1 cm; Reflux: 0 ms Ankle: 0.2 cm; Reflux: 0 ms DUPLICATED MEDIAL GREAT SAPHENOUS VEIN: Diameter: None Imaged Reflux: NA DUPLICATED LATERAL GREAT SAPHENOUS VEIN: Diameter: None Imaged Reflux: NA SMALL SAPHENOUS VEIN: Proximal: 0.3 cm; Reflux: 0 ms Distal: 0.3 cm; Reflux: 0 ms VEIN OF GIACOMINI: None Imaged. PERFORATORS: Location: None significant Size: NA Reflux: NA VARICOSITIES: Location: None Imaged Size: NA Reflux: NA US/US venous duplex LE BI IMPRESSION: Right: Focal segmental reflux in the great saphenous vein within the mid and distal thigh as described above. Left: No significant superficial venous reflux in the great saphenous vein or small saphenous vein
== END 2022-08-04 10:06 | disposition home or self-care (01) ==
LOC: HO.US 10:05
PROVIDERS: PCP Internal Medicine; Visit Provider Surgery Vascular Surgery
DX: I83.12 Varicose veins of left lower extremity with inflammation (principal)
CPT/HCPCS: 93970

== ENCOUNTER → 2022-08-11 15:39 | Outpatient (BNVA) | payer MEDICAID, SELFPAY | PROVIDERS: PCP Internal Medicine; Visit Provider Surgery Vascular Surgery | DX: I83.12 Varicose veins of left lower extremity with inflammation (principal) | CPT/HCPCS: 99212 ==

== ENCOUNTER 2022-08-31 08:12 | Emergency (ER) | payer MEDICAID, SELFPAY ==
[2022-08-31 08:21] VITALS: BP 147/66; PULSE 76; RESP 18; TEMP 36.7; O2SAT 95; BMI 30.9
--- NOTE | 2022-08-31 08:54 | ED.EAR ---
HPI - Ear Problem General Chief complaint: Ear Problems Stated complaint: ear pain in both ears Time Seen by Provider: 08/31/22 08:46 Source: patient Mode of arrival: ambulatory Limitations: no limitations History of Present Illness HPI Narrative: 62 year old female presents to the ER with 4-5 days of itching of both ears left is worse than right. She has tried Q tips has tried to flush out her ears. NO fever headache pain dose not radiate no sick contacts no sore throat. MD Complaint: ear pain Related Data Home Medications Medication Instructions Recorded Confirmed epinephrine 0.3 mg/0.3 mL 0.3 mg IM Q10M PRN 10/22/20 injection, auto-injector (EpiPen) ibuprofen 200 mg capsule 400 mg PO Q8H 10/22/20 loratadine 10 mg capsule 10 mg PO DAILY 10/22/20 methocarbamol 500 mg tablet 500 mg PO TID 10/22/20 Previous Rx's Medication Instructions Recorded lidocaine 5 % topical patch 1 patch topical DAILY #15 ea 12/18/20 (Lidoderm) naproxen 500 mg tablet 500 mg PO BID PRN pain #20 tabs 12/18/20 albuterol sulfate 90 mcg/actuation 2 puff inhalation QID prn wheezing 06/21/21 aerosol inhaler (ProAir HFA) #8.5 grams linaclotide 72 mcg capsule 72 mcg PO QAM #30 caps 11/11/21 (Linzess) omeprazole 20 mg capsule,delayed 20 mg PO DAILY #30 caps 11/11/21 release methocarbamol 500 mg tablet 500 mg PO TID PRN muscle spasm #14 07/29/22 tabs amoxicillin 875 mg-potassium 1 tab PO BID Otitis media #20 tabs 08/31/22 clavulanate 125 mg tablet ywsbbyas-fwylzbnho-acaddvbye 3.5 4 drp otic (ear) left Q8H Otitis 08/31/22 mg-10,000 unit/mL-1 % ear externa 10 days #10 mL drops,susp Allergies Allergy/AdvReac Type Severity Reaction Status Date / Time No Known Allergies Allergy Unknown Verified 08/31/22 08:23 [No Known Allergies*] Review of Systems Review of Systems: Review of systems: General: Patient denies any fever chills recent illness or falls Musculoskeletal: Denies back pain or body aches or other injuries HEENT: denies headache, runny nose, she does have bilateral ear pain and itchy ears Respiratory: denies shortness of breath, cough Cardiovascular: no chest pain or palpitations : denies dysuria, frequency Abdomen: no nausea vomiting denies abdominal pain Extremities: no swelling, no pain Skin: no diaphoresis Yes all other systems are reviewed and are negative PMFSH Past Medical History Medical History Diabetes Surgical History H/O section complicating H/O colonoscopy History of endoscopy Social History Social History Household Members: Family Housing: House Alcohol intake: never Patient Tobacco Use Status: Former Tobacco user Advance Directives: No Advance Directives Information Provided: Yes Physical Exam Vital Signs: Vital Signs: Last Vital Signs Temp 98.0 F 08/31/22 08:21 Pulse 76 08/31/22 08:21 Resp 18 08/31/22 08:21 BP 147/66 H 08/31/22 08:21 Pulse Ox 95 08/31/22 08:21 O2 Del Method 08/31/22 08:21 BMI result Body Mass Index 30.9 General: Well-appearing well-nourished in no signs of distress HEENT: Normocephalic atraumatic bilateral ears visualized right TM looks normal I do not see any excoriation or signs of infection left ear shows otitis media bulging red. Also some signs of debris in the canal. Neck: No signs of JVD, no masses no tenderness or lymphadenopathy Cardiovascular: Regular rate and rhythm Respiratory: Clear to auscultation bilaterally Abdomen: Soft nontender no masses Extremities: Normal pedal pulses no signs of edema Skin: Dry warm no rashes Back: No tenderness full ROM Medical Decision Making Medical Decision Making MDM Narrative: Patient with signs of otitis media and otitis externa will give the patient Augmentin will send patient home with polymyxin neomycin hydrocortisone drops. Differential Diagnosis Differential Diagnoses: The differential diagnosis associated with the presentation includes Otitis media expiration in the ear Discharge Plan Discharge Clinical Impression: Otitis media, Otitis externa Patient Disposition: Home, Self-Care Instructions: Otitis Externa (ED), How to Use Ear Drops (ED), Ear Infection (ED) Additional Instructions: Please call to follow up. If you have any other concerns please return to the ED. Prescriptions: New nwsgkcxa-czyqwrgwq-XD 3.5-10,000-1 mg/mL-unit/mL-% drops,suspension 4 drp otic (ear) left Q8H 10 Days Qty: 10 0RF amoxicillin-pot clavulanate 875-125 mg tablet 1 tab PO BID Qty: 20 0RF No Action lidocaine [Lidoderm] 5 % adhesive patch,medicated 1 patch topical DAILY Qty: 15 0RF Rx Instructions: leave on most painful area for up to 12 hrs naproxen 500 mg tablet 500 mg PO BID PRN (Reason: pain) Qty: 20 0RF albuterol sulfate [ProAir HFA] 90 mcg/actuation HFA aerosol inhaler 2 puff inhalation QID Qty: 8.5 0RF methocarbamol 500 mg tablet 500 mg PO TID PRN (Reason: muscle spasm) Qty: 14 0RF ibuprofen 200 mg capsule 400 mg PO Q8H epinephrine [EpiPen] 0.3 mg/0.3 mL auto-injector 0.3 mg IM Q10M PRN Rx Instructions: for 2 doses loratadine 10 mg capsule 10 mg PO DAILY methocarbamol 500 mg tablet 500 mg PO TID Linzess 72 mcg capsule 72 mcg PO QAM Qty: 30 6RF omeprazole 20 mg capsule,delayed release(DR/EC) 20 mg PO DAILY Qty: 30 6RF Referrals: Gracie Whitfield MD [Primary Care Provider] - (Please call to follow up.) Stand Alone Forms: Work/School Release
== END 2022-08-31 09:52 | disposition home or self-care (01) ==
PROVIDERS: Emergency Provider Student in an Organized Health Care Education/Training Program; PCP Internal Medicine
DX: H66.92 Otitis media, unspecified, left ear (principal); H60.92 Unspecified otitis externa, left ear; E11.9 Type 2 diabetes mellitus without complications; Z87.891 Personal history of nicotine dependence
CPT/HCPCS: 99282; 99283

== ENCOUNTER 2022-09-05 08:40 | Emergency (ER) | payer MEDICAID, SELFPAY ==
[2022-09-05 09:07] VITALS: BP 107/77; PULSE 78; RESP 18; TEMP 36.5; O2SAT 94; BMI 30.4
--- NOTE | 2022-09-05 11:12 | ED.EAR ---
HPI - Ear Problem General Chief complaint: Ear Problems Stated complaint: Ear pain L&R Time Seen by Provider: 09/05/22 09:38 History of Present Illness HPI Narrative: Patient complains of continuing ear pain after being prescribed Augmentin and Cortisporin for otitis externa several days ago She denies fever headache confusion no fainting or feeling faint no dizziness no vomiting no nausea Related Data Home Medications Medication Instructions Recorded Confirmed epinephrine 0.3 mg/0.3 mL 0.3 mg IM Q10M PRN 10/22/20 injection, auto-injector (EpiPen) ibuprofen 200 mg capsule 400 mg PO Q8H 10/22/20 loratadine 10 mg capsule 10 mg PO DAILY 10/22/20 methocarbamol 500 mg tablet 500 mg PO TID 10/22/20 Previous Rx's Medication Instructions Recorded lidocaine 5 % topical patch 1 patch topical DAILY #15 ea 12/18/20 (Lidoderm) naproxen 500 mg tablet 500 mg PO BID PRN pain #20 tabs 12/18/20 albuterol sulfate 90 mcg/actuation 2 puff inhalation QID prn wheezing 06/21/21 aerosol inhaler (ProAir HFA) #8.5 grams linaclotide 72 mcg capsule 72 mcg PO QAM #30 caps 11/11/21 (Linzess) omeprazole 20 mg capsule,delayed 20 mg PO DAILY #30 caps 11/11/21 release methocarbamol 500 mg tablet 500 mg PO TID PRN muscle spasm #14 07/29/22 tabs amoxicillin 875 mg-potassium 1 tab PO BID Otitis media #20 tabs 08/31/22 clavulanate 125 mg tablet uywvnctg-zxkbalnsu-olnszlouc 3.5 4 drp otic (ear) left Q8H Otitis 08/31/22 mg-10,000 unit/mL-1 % ear externa 10 days #10 mL drops,susp ciprofloxacin 0.2 %-hydrocortisone 3 drp otic (ears) BID 7 days #10 mL 09/05/22 1 % ear drops,suspension Allergies Allergy/AdvReac Type Severity Reaction Status Date / Time No Known Allergies Allergy Unknown Verified 09/05/22 09:11 [No Known Allergies*] PMFSH Past Medical History Source: nursing notes reviewed Medical History Diabetes Surgical History H/O section complicating H/O colonoscopy History of endoscopy Social History Social History Household Members: Family Housing: House Alcohol intake: never Patient Tobacco Use Status: Former Tobacco user Advance Directives: No Advance Directives Information Provided: No Physical Exam Vital Signs: Vital Signs: Last Vital Signs Temp 97.7 F 09/05/22 09:07 Pulse 78 09/05/22 09:07 Resp 18 09/05/22 09:07 BP 107/77 09/05/22 09:07 Pulse Ox 94 09/05/22 09:07 O2 Del Method 09/05/22 09:07 BMI result Body Mass Index 30.4 General appearance no distress Head is normocephalic atraumatic Eyes pupils equal round reactive to light extraocular motions are intact The ears the right ear has a narrowed red canal, the visible portion of the tympanic membrane is normal color with no perforation The left ear has a narrowed canal which is red, visualized portion of tympanic membrane is normal color no evidence of perforation Movement of the ear produces mild pain in each ear The pharynx is clear without redness swelling exudate Neck is supple Respiratory no distress Extremities full range of motion x4 Skin no rash Neuro no focal motor sensory deficits, cranial nerves 2-12 intact as tested gait and balance normal, interaction comprehension expression normal Course Course Course Narrative: Patient with otitis externa bilaterally who is treated with Augmentin and Cortisporin without significant improvement is changed to Cipro ear drops and hopefully they will have better efficacy and is advised to follow with her doctor for referral to ENT if this treatment does not work Well-appearing patient, comfortable is discharged Discharge Plan Discharge Clinical Impression: Otitis externa Patient Disposition: Home, Self-Care Additional Instructions: The antibiotic Augmentin is very good for ear infections so continue the Augmentin until it is finished But the drops for your ear that you were given last time may not work as well as the Cipro ear drops, so. The drops you have been taking and start the new eyedrops today do not take them both together If not improved in 2-3 days follow with your doctor for possible referral to a specialist Return to the ER any time for fever, redness, worsening pain, any worse condition or any concerns Prescriptions: New ciprofloxacin-hydrocortisone 0.2-1 % drops,suspension 3 drp otic (ears) BID 7 Days Qty: 10 0RF No Action lidocaine [Lidoderm] 5 % adhesive patch,medicated 1 patch topical DAILY Qty: 15 0RF Rx Instructions: leave on most painful area for up to 12 hrs naproxen 500 mg tablet 500 mg PO BID PRN (Reason: pain) Qty: 20 0RF oxtafftv-vxymqpipl-DH 3.5-10,000-1 mg/mL-unit/mL-% drops,suspension 4 drp otic (ear) left Q8H 10 Days Qty: 10 0RF amoxicillin-pot clavulanate 875-125 mg tablet 1 tab PO BID Qty: 20 0RF albuterol sulfate [ProAir HFA] 90 mcg/actuation HFA aerosol inhaler 2 puff inhalation QID Qty: 8.5 0RF methocarbamol 500 mg tablet 500 mg PO TID PRN (Reason: muscle spasm) Qty: 14 0RF ibuprofen 200 mg capsule 400 mg PO Q8H epinephrine [EpiPen] 0.3 mg/0.3 mL auto-injector 0.3 mg IM Q10M PRN Rx Instructions: for 2 doses loratadine 10 mg capsule 10 mg PO DAILY methocarbamol 500 mg tablet 500 mg PO TID Linzess 72 mcg capsule 72 mcg PO QAM Qty: 30 6RF omeprazole 20 mg capsule,delayed release(DR/EC) 20 mg PO DAILY Qty: 30 6RF Interventions: ED Discharge Assessment Last Done: 09/05/22 11:49 Discharge Date/Time: 09/05/22 11:30
== END 2022-09-05 11:30 | disposition home or self-care (01) ==
PROVIDERS: Emergency Provider Emergency Medicine; PCP Internal Medicine
DX: H60.93 Unspecified otitis externa, bilateral (principal); Z87.891 Personal history of nicotine dependence; Z79.899 Other long term (current) drug therapy
CPT/HCPCS: 99283

== ENCOUNTER 2022-09-27 09:51 | Emergency (ER) | payer MEDICAID, SELFPAY ==
[2022-09-27 09:55] VITALS: BP 170/54; PULSE 72; RESP 16; TEMP 36.4; O2SAT 96; BMI 31.8
== END 2022-09-27 11:28 | disposition left against medical advice (07) ==
PROVIDERS: Emergency Provider Emergency Medicine; PCP Internal Medicine
DX: H57.11 Ocular pain, right eye (principal)
CPT/HCPCS: 99281

== ENCOUNTER 2023-01-12 13:18 | Outpatient (REF) | payer MEDICAID, SELFPAY | END 2023-01-12 13:19 | disposition home or self-care (01) | LOC: HO.SH 13:18 | PROVIDERS: Visit Provider General Practice | DX: H90.3 Sensorineural hearing loss, bilateral (principal) | CPT/HCPCS: 92553; 92567 ==

== ENCOUNTER 2023-02-10 10:15 | Outpatient (REF) | payer MEDICAID, SELFPAY ==
--- NOTE | ~2023-02-10 | MM_ITS ---
EXAMINATION: MM SCREENING DIGITAL BREAST TOMOSYNTHESIS, BILATERAL CLINICAL INFORMATION: Screening. Asymptomatic. The lifetime risk of breast cancer based on the Tyrer-Cuzick Model is 6.8%. COMPARISON: Mammography: This study is compared with prior exams dating back to 2017. TECHNIQUE: Digital breast tomosynthesis is performed in both the craniocaudal and mediolateral oblique views along with computer-aided detection (CAD). Synthesized 2D images are generated from the tomosynthesis. FINDINGS: There are scattered areas of fibroglandular density (ACR BI-RADS breast composition Category b). There are no significant masses, abnormal calcifications, or other abnormalities. MM/MM tomosynthesis screening BI IMPRESSION: No mammographic evidence of malignancy. ASSESSMENT: BI-RADS BI-RADS 1 - Negative RECOMMENDATION: Routine annual mammography screening. 1 year F/U This examination should not preclude the clinical evaluation of a suspicious palpable abnormality. This patient's information was entered into a reminder system with a target due date for their next mammogram.
== END 2023-02-10 10:16 | disposition home or self-care (01) ==
LOC: HO.MAMMO 10:15
PROVIDERS: PCP Internal Medicine; Visit Provider Internal Medicine
DX: Z12.31 Encounter for screening mammogram for malignant neoplasm of breast (principal)
CPT/HCPCS: 77063; 77067

== ENCOUNTER → 2023-02-10 10:45 | Outpatient (BNV) | payer MEDICAID, SELFPAY | PROVIDERS: PCP Internal Medicine; Visit Provider Radiology Diagnostic Radiology | DX: Z12.31 Encounter for screening mammogram for malignant neoplasm of breast (principal) | CPT/HCPCS: 77063; 77067 ==

== ENCOUNTER 2023-05-31 14:19 | Emergency (ER) | payer MEDICAID, SELFPAY ==
--- NOTE | ~2023-05-31 | CT_ITS ---
EXAMINATION: CT ABDOMEN AND PELVIS WITHOUT CONTRAST CLINICAL INFORMATION: Right lower quadrant pain COMPARISON: None available. TECHNIQUE: Multidetector volumetric imaging was performed from the superior aspect of the liver through the pubic symphysis. Sagittal and coronal reformatted images were obtained on the technologist's workstation. This CT examination was performed using dose optimization techniques as appropriate, variously including the following: *Automated exposure control *Adjustment of mA and/or kV according to patient size (this includes techniques or standardized protocols for targeted exams where dose is matched to indication/reason for exam; i.e. extremities or head) *Use of iterative reconstruction technique DLP: 526 mGy-cm FINDINGS: LUNG BASES: Small scarring or atelectatic changes of the posteromedial right lower lobe. LIVER, GALLBLADDER, AND BILIARY TREE: The liver is normal in size, shape, and attenuation. No focal hepatic lesion or biliary ductal dilatation is present. The gallbladder is unremarkable with no evidence of radiopaque gallstones, gallbladder wall thickening, or obvious pericholecystic inflammatory changes. PANCREAS: Unremarkable. SPLEEN: Unremarkable. ADRENAL GLANDS: Unremarkable. KIDNEYS AND URETERS: The kidneys are normal in size, shape, and attenuation. No hydronephrosis, hydroureter, or calculi seen. No perinephric stranding. BLADDER: Unremarkable. GASTROINTESTINAL TRACT: Colonic diverticula without any acute inflammatory changes. Distal ileum and appendix unremarkable. Hiatal hernia. No small bowel obstructive process or abnormal omental thickening. ABDOMINAL WALL: Right lower quadrant abdominal wall fatty hernia measuring 6.4 cm transverse dimension by 1.0 cm AP with some infiltration of the fat in the hernia and just deep to the hernia which could be related to inflammation. Epiploic appendagitis is a consideration. LYMPH NODES: No suspiciously enlarged lymphadenopathy. VASCULAR: Atherosclerotic changes. PELVIC VISCERA: No suspicious pelvic masses. OSSEOUS STRUCTURES: Mild spondylitic change and mild disc space narrowing L5-S1. CT/CT abdomen pelvis wo IV con IMPRESSION: No CT evidence for appendicitis. Shallow right lower quadrant fatty abdominal wall hernia with some infiltration of the fat of the right lower quadrant and just inside the hernia. This could be related to inflammation. Epiploic appendagitis is a consideration. Other incidental findings as noted above. Fleischner guidelines were followed.
[2023-05-31 15:02] VITALS: BP 132/71; PULSE 71; RESP 16; TEMP 36.7; O2SAT 96; BMI 29.8
--- NOTE | 2023-05-31 15:02 | ED_ITS ---
HPI - Abdominal Pain General Chief Complaint: Abdominal Pain Stated Complaint: Abdominal pain right side Time Seen by Provider: 05/31/23 15:28 Source: patient Mode of arrival: ambulatory Limitations: no limitations History of Present Illness HPI narrative: a 63-year-old female presented for evaluation of right lower quadrant abdominal pain X1 month. Pain is localized to the right lower quadrant area comes and goes from 1 month, patient usually constipated had to take milk of magnesia yesterday and had bowel movement yet yesterday, no nausea, no vomiting, no anorexia, no fever, no chills, passing flatus, no dysuria, no frequency urination, no hematuria. Abdominal surgical history is significant for . Related Data Home Medications Medication Instructions Recorded Confirmed epinephrine 0.3 mg/0.3 mL 0.3 mg IM Q10M PRN 10/22/20 injection, auto-injector (EpiPen) ibuprofen 200 mg capsule 400 mg PO Q8H 10/22/20 loratadine 10 mg capsule 10 mg PO DAILY 10/22/20 methocarbamol 500 mg tablet 500 mg PO TID 10/22/20 Previous Rx's Medication Instructions Recorded lidocaine 5 % topical patch 1 patch topical DAILY #15 ea 12/18/20 (Lidoderm) naproxen 500 mg tablet 500 mg PO BID PRN pain #20 tabs 12/18/20 albuterol sulfate 90 mcg/actuation 2 puff inhalation QID prn wheezing 06/21/21 aerosol inhaler (ProAir HFA) #8.5 grams linaclotide 72 mcg capsule 72 mcg PO QAM #30 caps 11/11/21 (Linzess) omeprazole 20 mg capsule,delayed 20 mg PO DAILY #30 caps 11/11/21 release methocarbamol 500 mg tablet 500 mg PO TID PRN muscle spasm #14 07/29/22 tabs amoxicillin 875 mg-potassium 1 tab PO BID Otitis media #20 tabs 08/31/22 clavulanate 125 mg tablet hageqwfc-darjccgua-kmryotchj 3.5 4 drp otic (ear) left Q8H Otitis 08/31/22 mg-10,000 unit/mL-1 % ear externa 10 days #10 mL drops,susp ciprofloxacin 0.2 %-hydrocortisone 3 drp otic (ears) BID 7 days #10 mL 09/05/22 1 % ear drops,suspension Allergies Allergy/AdvReac Type Severity Reaction Status Date / Time No Known Allergies Allergy Unknown Verified 05/31/23 15:06 [No Known Allergies*] Review of Systems Review of Systems All other systems are reviewed and are negative Constitutional: Reports as per HPI and Reports no additional constitutional complaints Eyes: Reports as per HPI and Reports no additional eye complaints Reports system reviewed and no additional complaints, except as documented Cardiovascular: Reports as per HPI and Reports no additional cardiovascular complaints Respiratory: Reports as per HPI and Reports no additional respiratory complaints Gastrointestinal: Reports as per HPI and Reports no additional gastrointestinal complaints Genitourinary: Reports no additional female genitourinary complaints Musculoskeletal: Reports no additional musculoskeletal complaints Skin/Breast: Reports system reviewed and no additional complaints, except as docu Psychiatric: Reports no additional psychiatric complaints Endocrine: Reports no additional endocrine complaints Hematologic/Lymphatic: Reports no additional hematologic/lymphatic complaints Allergic/Immunologic: Reports no additional allergic/immunologic complaints Reports system reviewed and no additional complaints, except as documented and Reports Abnormal speech present [facility] Past Medical History Medical History Diabetes Surgical History History of endoscopy H/O colonoscopy H/O section complicating Social History Social History Household Members: Family Housing: House Alcohol intake: never Patient Tobacco Use Status: Former Tobacco user Advance Directives: No Advance Directives Information Provided: No Physical Exam ED Vital Signs: Vital Signs - 24 hr 05/31/23 15:02 05/31/23 16:00 Temperature 98.1 F 98.1 F Pulse Rate 71 66 Respiratory Rate 16 16 Blood Pressure 132/71 160/98 H Pulse Oximetry 96 97 Oxygen Delivery Method Room Air Room Air BMI result Body Mass Index 29.8 Vital signs have been reviewed and appear to be correct. Blood pressure elevated. Heart rate normal. Respiratory rate normal. Temperature normal. Oxygen saturation normal. Appearance: Alert. Oriented X3. No acute distress. Head: Normal external exam. Normocephalic. Atraumatic. No Arroyo signs noted. No raccoon eyes noted Eyes: PERRLA. EOMI. Conjunctiva and sclera normal. Eyelids normal. ENT: TM's Normal. Pharynx normal. Uvula midline. Moist mucous membranes. No trismus noted. No drooling noted. No muffled voice noted. Neck: Normal inspection. Neck supple. FROM. No adenopathy. Thyroid Normal. No meningeal signs. No neck mass noted. CVS: Normal heart rate and rhythm. Heart sound normal. No murmurs noted. Pulses normal throughout. Respiratory: No respiratory distress. Painless inspiration. Breath sounds normal. No wheezes/rales/rhonchi noted. Chest nontender. No accessory muscle usage noted or decreased air movement noted. Abdomen: Soft, mild right lower quadrant tenderness, no rebound tenderness, no guarding. Bowel sounds normal in all 4 quadrants. No distention noted. No organomegaly noted. No visible injury noted. Back: No CVA tenderness. Full range of motion noted. Skin: Skin warm and dry. Normal skin color. Normal skin turgor. No rashes/lesions/lacerations noted. Extremities: No lower extremity edema. Extremities exhibit normal range of motion. Extremities nontender. Neuro: Oriented X 3. Cranial nerve exam: II-XII are grossly intact No motor deficit. No sensory deficit. Reflexes normal. Course Course Course Narrative: RME: 63yo F w/PMHx GERD, HLD, DM, constipation, asthma, s/p c/o RLQ abdominal pain x1 mos. Admits sx worsening. Admits urinating makes pain a little better. Denies N/V, fever, diarrhea Labs, UA ordered Full HPI, ROS and PE to be performed by primary ED provider. Reevaluation(s) Reevaluation #1: 63 year old female came in with RLQ pain for 1 month on and off. Normal WBCs, CT abdomen pelvis showing no acute intra-abdominal pathology and possibility of epiploic appendagitis, will discharge the patient and follow-up with GI as an outpatient. Time: 17:40 Medical Decision Making Differential Diagnosis Differential Diagnoses: The differential diagnosis associated with the presentation includes ( Acute appendicitis, colitis, diverticulitis, pancreatitis, electrolyte abnormality, severe anemia.) Admission/Observation Consideration of admission/observation: Escalation of care including admission/observation considered Lab Data MDM Lab Attestation statement: I reviewed the patient's lab results. 05/31/23 15:22 05/31/23 15:22 Labs: Lab Results 05/31/23 Range/Units 15:22 WBC 8.0 (4.8-10.8) X10*3/uL RBC 4.94 (4.20-5.50) X10*6/uL Hgb 14.3 (12.0-16.0) g/dl Hct 42.2 (37.0-47.0) % MCV 85.4 (80.0-98.0) fL MCH 28.9 (27.0-33.0) pg MCHC 33.9 (31.0-35.0) g/dl RDW 13.2 (11.0-16.0) % Plt Count 223 D (160-400) X10*3/uL MPV 10.7 (9.4-12.3) fL Immature Gran % (Auto) 0.4 (0.0-0.4) % Neut % (Auto) 60.0 (45-73) % Lymph % (Auto) 30.0 (20-40) % Mckean % (Auto) 7.4 (2-11) % Eos % (Auto) 1.4 (0-4) % Baso % (Auto) 0.8 (0-2) % Lymph # (Auto) 2.4 (1.2-4.9) X10*3/uL Mckean # (Auto) 0.6 (0.1-1.2) X10*3/uL Eos # (Auto) 0.1 (0.0-0.4) X10*3/uL Baso # (Auto) 0.1 (0.0-0.2) X10*3/uL Abs Immat Gran (auto) 0.03 (0.00-0.03) X10*3/uL Absolute Neuts (auto) 4.8 (2.0-8.3) x10*3/uL Absolute Nucleated RBC 0.000 (0.0-0.012) X10*3/uL Nucleated RBC % (auto) 0.0 (0.0-0.2) /100WBC Sodium 141 (135-145) mmol/L Potassium 4.5 (3.3-5.1) mmol/L Chloride 108 (96-108) mmol/L Carbon Dioxide 27 (22-29) mmol/L Anion Gap 11 L (12-20) BUN 15 (9-16) mg/dL Creatinine 0.75 (0.5-1.4) mg/dL Estim Creat Clear Calc 76.0 Estimated GFR > 60 Random Glucose 121 H (60-115) mg/dL Calcium 9.4 (8.4-10.2) mg/dL Magnesium 2.5 (1.6-2.6) mg/dL Total Bilirubin 0.3 (0.0-1.0) mg/dL Direct Bilirubin 0.1 (0.0-0.5) mg/dL AST 21 (5-31) U/L ALT 17 (0-31) U/L Alkaline Phosphatase 83 (39-117) U/L Total Protein 7.6 (6.5-8.0) g/dL Albumin 4.3 (3.5-5.0) g/dL Lipase 38 (8-78) U/L Urine Color Yellow Urine Appearance Clear Urine pH 8.0 (5.0-9.0) Ur Specific [place] <= 1.005 (1.005-1.025) Urine Protein Negative (Neg-Trace) mg/dL Urine Glucose (UA) Negative (Negative) mg/dL Urine Ketones Negative (Negative) mg/dL Urine Blood Negative (Negative) Urine Nitrite Negative (Negative) Ur Leukocyte Esterase Negative (Negative) Independent Interpretation I performed an independent interpretation of an: CT Scan ( Abdomen pelvis: No acute intra-abdominal pathology) Radiology Impression Discussion of test interpretation with radiology: I have reviewed the radiologist's reading. Discharge Plan Discharge Clinical Impression: Abdominal pain, Epiploic appendagitis Patient Disposition: Home, Self-Care Instructions: Abdominal Pain (ED) Additional Instructions: take ibuprofen 200 mg tablet every 6 hours if needed for pain. Prescriptions: No Action lidocaine [Lidoderm] 5 % adhesive patch,medicated 1 patch topical DAILY Qty: 15 0RF Rx Instructions: leave on most painful area for up to 12 hrs naproxen 500 mg tablet 500 mg PO BID PRN (Reason: pain) Qty: 20 0RF svmlbfxv-lewkczeif-LN 3.5-10,000-1 mg/mL-unit/mL-% drops,suspension 4 drp otic (ear) left Q8H 10 Days Qty: 10 0RF amoxicillin-pot clavulanate 875-125 mg tablet 1 tab PO BID Qty: 20 0RF ciprofloxacin-hydrocortisone 0.2-1 % drops,suspension 3 drp otic (ears) BID 7 Days Qty: 10 0RF albuterol sulfate [ProAir HFA] 90 mcg/actuation HFA aerosol inhaler 2 puff inhalation QID Qty: 8.5 0RF methocarbamol 500 mg tablet 500 mg PO TID PRN (Reason: muscle spasm) Qty: 14 0RF ibuprofen 200 mg capsule 400 mg PO Q8H epinephrine [EpiPen] 0.3 mg/0.3 mL auto-injector 0.3 mg IM Q10M PRN Rx Instructions: for 2 doses loratadine 10 mg capsule 10 mg PO DAILY methocarbamol 500 mg tablet 500 mg PO TID Linzess 72 mcg capsule 72 mcg PO QAM Qty: 30 6RF omeprazole 20 mg capsule,delayed release(DR/EC) 20 mg PO DAILY Qty: 30 6RF Referrals: Gracie Whitfield MD [Primary Care Provider] - Jes Hopkins MD [Physician] -
[2023-05-31 15:28] LABS: MANUAL DIFF FLAG NO
[2023-05-31 15:29] LABS: Appearance Urine Clear; Basophils Absolute Auto 0.1 X10*3/uL (0.0-0.2); Basophils Percent Auto 0.8 % (0-2); Color Urine Yellow; Eosinophils Absolute Auto 0.1 X10*3/uL (0.0-0.4); Eosinophils Percent Auto 1.4 % (0-4); Glucose Urine UA Negative (Negative); Hematocrit 42.2 % (37.0-47.0); Hemoglobin 14.3 g/dl (12.0-16.0); Imm Gran Abs Auto 0.03 X10*3/uL (0.00-0.03); Imm Gran Pct Auto 0.4 % (0.0-0.4); Leukocyte Esterase Urine Negative (Negative); Lymphocytes Absolute Auto 2.4 X10*3/uL (1.2-4.9); Mean Corpuscular HGB Conc 33.9 g/dl (31.0-35.0); Mean Corpuscular Hemoglobin 28.9 pg (27.0-33.0); Mean Corpuscular Volume 85.4 fL (80.0-98.0); Mean Platelet Volume 10.7 fL (9.4-12.3); Monocytes Absolute Auto 0.6 X10*3/uL (0.1-1.2); Monocytes Percent Auto 7.4 % (2-11); Neutrophils Absolute Auto 4.8 x10*3/uL (2.0-8.3); Nitrite Urine Negative (Negative); Platelet Count 223 X10*3/uL (160-400); Red Blood Count 4.94 X10*6/uL (4.20-5.50); Red Cell Distribution Width 13.2 % (11.0-16.0); Specific Gravity - Urine <= 1.005 (1.005-1.025); Urine Blood Negative (Negative); Urine Ketones Negative (Negative); Urine Protein Negative (Neg-Trace)
--- NOTE | 2023-05-31 15:40 | PC.NURSE ---
pt to CT.
[2023-05-31 15:46] LABS: Alanine Aminotransferase 17 U/L (0-31); Albumin Level 4.3 g/dL (3.5-5.0); Alkaline Phosphatase 83 U/L (39-117); Anion Gap 11 (12-20); Aspartate Amino Transferase 21 U/L (5-31); Bilirubin Direct 0.1 mg/dL (0.0-0.5); Bilirubin Total 0.3 mg/dL (0.0-1.0); Blood Urea Nitrogen 15 mg/dL (9-16); Calcium 9.4 mg/dL (8.4-10.2); Carbon Dioxide 27 mmol/L (22-29); Chloride 108 mmol/L (96-108); Estimated Glomerular Filt Rate > 60; Glucose Random 121 mg/dL (60-115); Lipase 38 U/L (8-78); Magnesium 2.5 mg/dL (1.6-2.6); Potassium 4.5 mmol/L (3.3-5.1); Sodium 141 mmol/L (135-145); Total Protein 7.6 g/dL (6.5-8.0)
[2023-05-31 16:00] VITALS: BP 160/98; PULSE 66; RESP 16; TEMP 36.7; O2SAT 97
== END 2023-05-31 17:02 | disposition home or self-care (01) ==
PROVIDERS: Physician Assistant; Emergency Provider Emergency Medicine; PCP Internal Medicine
DX: R10.31 Right lower quadrant pain (principal); K63.89 Other specified diseases of intestine; Z79.899 Other long term (current) drug therapy
CPT/HCPCS: 36415; 74176; 80048; 80076; 81003; 83690; 83735; 85025; 99284

== ENCOUNTER 2023-07-12 10:49 | Outpatient (AMB) | payer MEDICAID, SELFPAY ==
--- NOTE | 2023-07-12 10:52 | A.OFFVIS_ITS ---
Intake Vital Signs 07/12/23 11:02 Height 5 ft 3 in Weight 171 lb BMI 30.3 BP 127/61 Blood Pressure Location Rt brachial Position Sitting Pulse 77 Intake Visit Reasons: abdominal wall hernia,epiploic appendagitis Intake Note: This patient presents for a follow-up assessment for abdominal wall hernia, epiploic appendagitis. Patient c/o; Onset 6+ months, reports pain and discomfort, reports bulge, reports RLQ pain, reports pain worsens when bends down to pick something up or with certain movement. Financial Center Manager Required: Yes Financial Center Manager Language: T[place] Mucker Name: Govind Information Interpreted: non-clinical & clinical Accompanied by: Self / Same As Patient Allergies No Known Allergies [No Known Allergies*] Allergy (Unknown, Verified 05/31/23 15:06) Medication List - Last Reconciled 07/12/23 by Kyler Little MD acetaminophen-codeine 300-30 mg 1 tab PO Q6H PRN albuterol sulfate 90 mcg/actuation (ProAir HFA) 2 puffs inhalation QID amlodipine 10 mg PO QAM amoxicillin-pot clavulanate 875-125 mg 1 tab PO BID ciprofloxacin-hydrocortisone 0.2-1 % 3 drps otic (ears) BID 7 days cyclobenzaprine 10 mg PO TID epinephrine (EpiPen) 0.3 mg IM Q10M PRN fluticasone propionate 50 mcg/actuation 1 spray intranasal QAM ibuprofen 400 mg PO Q8H lidocaine 5% (Lidoderm) 1 patch topical DAILY linaclotide (Linzess) 72 mcg PO QAM loratadine 10 mg PO DAILY loratadine 10 mg PO QAM PRN lorazepam 0.5 mg PO DAILY PRN methocarbamol 500 mg PO TID PRN methocarbamol 500 mg PO TID naproxen 500 mg PO BID PRN nrcjlmbn-bdazmuhke-ZB 3.5-10,000-1 mg/mL-unit/mL-% 4 drps otic (ear) left Q8H 10 days omeprazole 20 mg PO DAILY HPI abdominal wall hernia,epiploic appendagitis HPI Details 63-year-old male referred for a hernia. She went to the ER on 05/31/2023 because of right lower quadrant pain. She had a CAT scan done then showing what appears to be a very small fat containing hernia on the right lower quadrant along with suggestion of epiploic appendagitis. She has a history of chronic constipation. She denies any other GI complaints. She says she has this low-grade pain on the right lower quadrant whenever she lifts heavy objects. She states that this is not severe. She denies any palpable mass. [facility] Medical History (Updated 07/12/23 @ 11:17 by Kyler Little MD) Incisional hernia Diabetes Surgical History History of endoscopy H/O colonoscopy H/O section complicating Social History Household Members: Family Housing: House Alcohol intake: never Patient Tobacco Use Status: Former Tobacco user Review of Systems Const Denies chills and Denies fever(s) Card Denies chest pain, Denies dyspnea and Denies dyspnea on exertion Resp Denies cough, Denies dyspnea and Denies dyspnea on exertion GI Denies hematochezia, Denies change in bowel habits and Reports constipation Denies hematuria Musc Denies back pain and Denies limited range of motion Neuro Denies focal weakness and Denies convulsions Psych Denies depression and Denies mood swings Physical Exam Vital Signs: Last Vital Signs Pulse 77 07/12/23 11:02 BP 127/61 07/12/23 11:02 BMI result Body Mass Index 30.3 Const General: comfortable and no acute distress Orientation/consciousness: patient oriented x3 Neck Neck: Yes no lymphadenopathy Resp Auscultation: clear to auscultation bilaterally Cardio Rhythm: regular rhythm GI Other: Unable to palpate any hernia or mass but she seems to have point tenderness on the lateral aspect of her Pfannenstiel incision Palpation (GI): Soft to palpation, nontender and no guarding Neuro General: patient oriented x3 Assessment & Plan Assessment & Plan (1) Incisional hernia: Code(s): K43.2 - Incisional hernia without obstruction or gangrene Plan: I have reviewed her CAT scan and this seems to be a very small fat containing hernia on the right lower quadrant along the lateral aspect of her previous C- section incision. I had a long discussion with her about proceeding with hernia repair. I explained the technique of this procedure as well as the risks, benefits, and alternatives She was a little hesitant to proceed. She says she would like to just watch this closely as she really has minimal symptoms. I will see her again in the office in about 3 months she says. We will re- evaluate then. Coding Level of Care Code New Pt Level 3 (05555) Diagnoses Incisional hernia K43.2
[2023-07-12 11:02] VITALS: BP 127/61; PULSE 77; BMI 30.3
== END 2023-07-12 11:14 | disposition home or self-care (01) ==
PROVIDERS: PCP Internal Medicine; Visit Provider Surgery
DX: K43.2 Incisional hernia without obstruction or gangrene (principal)
CPT/HCPCS: 99203

== ENCOUNTER → 2023-07-12 10:49 | Outpatient (BNVA) | payer MEDICAID, SELFPAY | PROVIDERS: PCP Internal Medicine; Visit Provider Surgery | DX: K43.2 Incisional hernia without obstruction or gangrene (principal) | CPT/HCPCS: 99202 ==

== ENCOUNTER 2023-08-23 12:52 | Outpatient (AMB) | payer MEDICAID, SELFPAY ==
--- NOTE | 2023-08-23 12:58 | MHC.OFFVIS ---
Intake Vital Signs 08/23/23 13:01 Height 5 ft 3 in Weight 170 lb BMI 30.1 BP 144/70 H Blood Pressure Location Lt brachial Position Sitting Pulse 71 Intake Visit Reasons: 2 month follow-up abdominal wall hernia Intake Note: Patient is seen in office for 2 months follow up visit, following abdominal wall hernia. Patient c/o: continued constipation and straining, sometimes bleeding, this causes the hernia to be pronounce and painful Net Mvc Developer Required: Yes Net Mvc Developer Language: Wool Dyer Name: Celeste Ha Information Interpreted: non-clinical & clinical Accompanied by: Self / Same As Patient Allergies No Known Allergies [No Known Allergies*] Allergy (Unknown, Verified 05/31/23 15:06) Medication List - Last Reconciled 08/23/23 by Kyler Little MD acetaminophen-codeine 300-30 mg 1 tab PO Q6H PRN albuterol sulfate 90 mcg/actuation (ProAir HFA) 2 puffs inhalation QID amlodipine 10 mg PO QAM amoxicillin-pot clavulanate 875-125 mg 1 tab PO BID ciprofloxacin-hydrocortisone 0.2-1 % 3 drps otic (ears) BID 7 days cyclobenzaprine 10 mg PO TID epinephrine (EpiPen) 0.3 mg IM Q10M PRN fluticasone propionate 50 mcg/actuation 1 spray intranasal QAM ibuprofen 400 mg PO Q8H lidocaine 5% (Lidoderm) 1 patch topical DAILY linaclotide (Linzess) 72 mcg PO QAM loratadine 10 mg PO DAILY loratadine 10 mg PO QAM PRN lorazepam 0.5 mg PO DAILY PRN methocarbamol 500 mg PO TID PRN methocarbamol 500 mg PO TID naproxen 500 mg PO BID PRN uxdfsvsi-drpzxanbe-AD 3.5-10,000-1 mg/mL-unit/mL-% 4 drps otic (ear) left Q8H 10 days omeprazole 20 mg PO DAILY HPI 2 month follow-up abdominal wall hernia HPI Details I had seen her last June, because of what she described as an area of a mass tenderness on the right side. Her CAT scan had shown what appeared to be a fat containing small hernia. She is now considering having surgery for this but says she wants to wait until summer. She feels well overall. She describes some pain whenever she is doing some lifting. She denies GI complaints. [facility] Medical History Incisional hernia Diabetes Surgical History History of endoscopy H/O colonoscopy H/O section complicating Social History Household Members: Family Housing: House Alcohol intake: never Patient Tobacco Use Status: Former Tobacco user Review of Systems Const Denies chills and Denies fever(s) Card Denies chest pain, Denies dyspnea and Denies dyspnea on exertion Resp Denies cough, Denies dyspnea and Denies dyspnea on exertion GI Denies hematochezia and Denies change in bowel habits Denies hematuria Musc Denies back pain and Denies limited range of motion Neuro Denies focal weakness and Denies convulsions Psych Denies depression and Denies mood swings Physical Exam Vital Signs: Last Vital Signs Pulse 71 08/23/23 13:01 BP 144/70 H 08/23/23 13:01 BMI result Body Mass Index 30.1 Const General: comfortable and no acute distress Resp Effort & Inspection: normal respiratory effort Cardio Rate: regular rate GI Other: Vague hernia felt on the with Valsalva on the right lower quadrant, near the lateral aspect of her previous Pfannenstiel Palpation (GI): Soft to palpation, not firm and nontender Assessment & Plan Assessment & Plan (1) Incisional hernia: Code(s): K43.2 - Incisional hernia without obstruction or gangrene Plan: Her CT scan last year showed what appeared to be a small fat containing hernia on the right lower quadrant. This may be related to her previous Pfannenstiel incision She is concerning repair for this as she describes some symptoms whenever she is doing heavy lifting. However she wants this done in the summer. She says she will come back to the office sometime in December. Coding Level of Care Code Est Pt Level 3 (25692) Diagnoses Incisional hernia K43.2
[2023-08-23 13:01] VITALS: BP 144/70; PULSE 71; BMI 30.1
== END 2023-08-23 13:07 | disposition home or self-care (01) ==
PROVIDERS: PCP Internal Medicine; Visit Provider Surgery
DX: K43.2 Incisional hernia without obstruction or gangrene (principal)
CPT/HCPCS: 99213

== ENCOUNTER → 2023-08-23 12:52 | Outpatient (BNVA) | payer MEDICAID, SELFPAY | PROVIDERS: PCP Internal Medicine; Visit Provider Surgery | DX: K43.2 Incisional hernia without obstruction or gangrene (principal) | CPT/HCPCS: 99212 ==

== ENCOUNTER 2023-09-08 11:37 | Emergency (ER) | payer MEDICAID, SELFPAY ==
[2023-09-08 11:50] VITALS: BP 137/80; PULSE 74; RESP 18; TEMP 36.6; O2SAT 98; BMI 30.1
--- NOTE | 2023-09-08 11:51 | ED_ITS ---
HPI - General Adult General Chief complaint: Eye Problems Stated complaint: Stye L Eye Time Seen by Provider: 09/08/23 11:59 Source: patient and marketing finance specialist Mode of arrival: ambulatory Limitations: no limitations History of Present Illness HPI narrative: 63 year old female with pmhx significant for GERD, diabetes, asthma presents to the ED this morning for evaluation of pain/swelling to left eyelid x3 days. Admits she was evaluated at the walk in clinic yesterday for same. She was discharged home with an antibiotic (cefuroxime) which she has taken a single dose of. Endorses no improvement. She hsa tried one warm compress this morning. Denies vision changes. Denies FB sensation to eye. Denies pain with eye movements. Denies fever, chills, N/V, blurred or double vision, vision loss. Has not been taking any OTC meds at home. Related Data Home Medications Medication Instructions Recorded Confirmed epinephrine 0.3 mg/0.3 mL 0.3 mg IM Q10M PRN 10/22/20 08/23/23 injection, auto-injector (EpiPen) ibuprofen 200 mg capsule 400 mg PO Q8H 10/22/20 08/23/23 loratadine 10 mg capsule 10 mg PO DAILY 10/22/20 08/23/23 methocarbamol 500 mg tablet 500 mg PO TID 10/22/20 08/23/23 amlodipine 10 mg tablet 10 mg PO QAM 07/12/23 08/23/23 cyclobenzaprine 10 mg tablet 10 mg PO TID 07/12/23 08/23/23 fluticasone propionate 50 1 spray intranasal QAM 07/12/23 08/23/23 mcg/actuation nasal spray,suspension loratadine 10 mg tablet 10 mg PO QAM PRN allergies 07/12/23 08/23/23 lorazepam 0.5 mg tablet 0.5 mg PO DAILY PRN anxiety 07/12/23 08/23/23 Previous Rx's Medication Instructions Recorded lidocaine 5 % topical patch 1 patch topical DAILY #15 ea 12/18/20 (Lidoderm) naproxen 500 mg tablet 500 mg PO BID PRN pain #20 tabs 12/18/20 albuterol sulfate 90 mcg/actuation 2 puff inhalation QID prn wheezing 06/21/21 aerosol inhaler (ProAir HFA) #8.5 grams linaclotide 72 mcg capsule 72 mcg PO QAM #30 caps 11/11/21 (Linzess) omeprazole 20 mg capsule,delayed 20 mg PO DAILY #30 caps 11/11/21 release methocarbamol 500 mg tablet 500 mg PO TID PRN muscle spasm #14 07/29/22 tabs amoxicillin 875 mg-potassium 1 tab PO BID Otitis media #20 tabs 08/31/22 clavulanate 125 mg tablet zebpikba-uaielbtkj-rfpgsobqv 3.5 4 drp otic (ear) left Q8H Otitis 08/31/22 mg-10,000 unit/mL-1 % ear externa 10 days #10 mL drops,susp ciprofloxacin 0.2 %-hydrocortisone 3 drp otic (ears) BID 7 days #10 mL 09/05/22 1 % ear drops,suspension acetaminophen 300 mg-codeine 30 mg 1 tab PO TID PRN severe pain #14 08/30/23 tablet tabs tramadol 50 mg tablet 50 mg PO TID PRN pain #20 tabs 09/01/23 erythromycin 5 mg/gram (0.5 %) eye 1 appl ophthalmic (eye) BID #3.5 09/08/23 ointment grams Allergies Allergy/AdvReac Type Severity Reaction Status Date / Time No Known Allergies Allergy Unknown Verified 09/08/23 11:50 [No Known Allergies*] Review of Systems Review of Systems: Constitutional: No fever, chills, fatigue, night sweats, weight changes ENT/Mouth: No ear pain, hearing loss, nasal congestion, sinus pain, rhinorrhea, sore throat Eyes: No eye pain, redness, vision changes, discharge, +redness/swelling to left eyelid Cardio: No chest pain, palpitations, MICHAUD, orthopnea, peripheral edema Pulm: No SOB, cough, sputum, wheezing, dyspnea, hemoptysis GI: No nausea, vomiting, hematemesis, abdominal pain, diarrhea, constipation, hematochezia, melena : No irregular bleeding, dysuria, frequency, urgency, hesitancy, hematuria, flank pain, urinary flow changes, urinary incontinence or retention MSK: No back pain, neck pain, joint pain, myalgias Skin: No lesions, rashes Neuro: No weakness, numbness, paresthesias, LOC, dizziness, headache Psych: No anxiety/panic, depression, SI/HI, AH/VH All other systems reviewed and are negative. [facility] Past Medical History Attestation statement: The following information was validated with the patient. Source: old records reviewed and nursing notes reviewed Medical History Incisional hernia Diabetes Surgical History History of endoscopy H/O colonoscopy H/O section complicating Social History Social History Household Members: Family Housing: House Alcohol intake: never Patient Tobacco Use Status: Former Tobacco user Advance Directives: No Advance Directives Information Provided: No Physical Exam ED Vital Signs: Vital Signs - 24 hr 09/08/23 11:50 Temperature 98 F Pulse Rate 74 Respiratory Rate 18 Blood Pressure 137/80 Pulse Oximetry 98 Oxygen Delivery Method Room Air BMI result Body Mass Index 30.1 Vital signs stable, afebrile Const General: cooperative, healthy appearing, comfortable and no acute distress Orientation/consciousness: patient oriented x3 Limitations: no limitations HENMT Head: Yes normal to inspection, Yes normocephalic and Yes atraumatic Eyes Other: + no conjunctival injection. left upper eye lid erythematous and swollen. tiny mass noted to inner upper eyelid with pointing. no drainage. no periorbital or facial swelling. + EOMs intact without entrapment or pain Visual Tovar: normal visual tovar by confrontation Conjunctivae: conjunctivae normal Sclerae: sclerae normal Pupils: Equal, round and reactive pupils present Neck Other: + No facial edema + No submandublar or submental LAD + No cervical LAD Neck: Yes normal visual inspection Resp Effort & Inspection: normal respiratory effort Cardio Rate: regular rate Rhythm: regular rhythm Skin General skin exam: no rashes or lesions noted Neuro General: patient oriented x3 Cranial nerves: Yes Equal, round and reactive pupils present Course Course Course Narrative: Physical exam findings are consistent with upper eyelid stye and blepharitis. Given patient has only taken one dose of abx without worsening symptoms, I do not consider this a failure of outpatient treatment. Advised her to continue antibiotics. Will also send erythromycin ointment to pharmacy. Educated patient on warm compresses. Discussed worrisome signs and symptoms of when to return to the ED. Patient has remained stable throughout ED visit today. All questions answered at this time. Patient is agreeable with disposition and stable for discharge. Medical Decision Making Medical Decision Making MDM Narrative: 63 year old female with pmhx significant for GERD, diabetes, asthma presents to the ED this morning for evaluation of pain/swelling to left eyelid x3 days. Vital signs are stable. She is nontoxic appearing and in NAD. On exam, there is no conjunctival injection. left upper eye lid erythematous and swollen. tiny mass noted to inner upper eyelid with pointing. no drainage. no periorbital or facial swelling. EOMs intact without entrapment or pain Differential includes: hordeolum, chelazion, blepharitis, preseptal cellulitis, orbital cellulitis Plan for education and discharge Differential Diagnosis Differential Diagnoses: The differential diagnosis associated with the presentation includes as above. Admission/Observation Not indicated External Record Review External record reviewed: Inpatient record, Office record, Outpatient record, Prior outpatient labs, Prior outpatient radiology, Primary care record and Outside ED record Prescription Management I considered prescription management with: Antibiotic Discharge Plan Discharge Clinical Impression: Hordeolum, Blepharitis Patient Disposition: Home, Self-Care Instructions: Grzegorz (ED) Additional Instructions: You were evaluated in the ED today for swelling to your left upper eyelid. You have an infection of one of the glands of the eyelid, called a tex (grzegorz). Continue taking antibiotics as prescribed. You need to apply warm compresses to the eye and massage the eye to allow the area to drain. It could take 1-2 weeks for the swelling to resolve. Please return to the ED for new or worsening symptoms. Follow up with your PCP as needed. In the case of emergency call 911. Hoy lo evaluaron en el servicio de urgencias por hinchaz?n en el p?rpado superior antonieta. Tiene gonsalo infecci?n de gonsalo de las gl?ndulas del p?rpado, llamada orzuelo (orzuelo). Contin?e tomando antibi?ticos seg?n lo recetado. Debe aplicar compresas tibias en el carolin y masajearlo para permitir que el ?king drene. La hinchaz?n podr?a tardar entre 1 y 2 semanas en desaparecer. Regrese al servicio de urgencias si los s?ntomas aparecen o empeoran. Ameya un seguimiento con santiago PCP seg?n sea necesario. En herberth de emergencia llame al 911. Prescriptions: New erythromycin 5 mg/gram (0.5 %) ointment 1 appl ophthalmic (eye) BID Qty: 3.5 0RF No Action acetaminophen-codeine 300-30 mg tablet 1 tab PO TID PRN (Reason: severe pain) Qty: 14 0RF tramadol 50 mg tablet 50 mg PO TID PRN (Reason: pain) Qty: 20 0RF lidocaine [Lidoderm] 5 % adhesive patch,medicated 1 patch topical DAILY Qty: 15 0RF Rx Instructions: leave on most painful area for up to 12 hrs naproxen 500 mg tablet 500 mg PO BID PRN (Reason: pain) Qty: 20 0RF zdsvdtsv-shztuzikr-AL 3.5-10,000-1 mg/mL-unit/mL-% drops,suspension 4 drp otic (ear) left Q8H 10 Days Qty: 10 0RF amoxicillin-pot clavulanate 875-125 mg tablet 1 tab PO BID Qty: 20 0RF ciprofloxacin-hydrocortisone 0.2-1 % drops,suspension 3 drp otic (ears) BID 7 Days Qty: 10 0RF albuterol sulfate [ProAir HFA] 90 mcg/actuation HFA aerosol inhaler 2 puff inhalation QID Qty: 8.5 0RF methocarbamol 500 mg tablet 500 mg PO TID PRN (Reason: muscle spasm) Qty: 14 0RF ibuprofen 200 mg capsule 400 mg PO Q8H epinephrine [EpiPen] 0.3 mg/0.3 mL auto-injector 0.3 mg IM Q10M PRN Rx Instructions: for 2 doses loratadine 10 mg capsule 10 mg PO DAILY methocarbamol 500 mg tablet 500 mg PO TID Linzess 72 mcg capsule 72 mcg PO QAM Qty: 30 6RF omeprazole 20 mg capsule,delayed release(DR/EC) 20 mg PO DAILY Qty: 30 6RF amlodipine 10 mg tablet 10 mg PO QAM lorazepam 0.5 mg tablet 0.5 mg PO DAILY PRN (Reason: anxiety) fluticasone propionate 50 mcg/actuation spray,suspension 1 spray intranasal QAM cyclobenzaprine 10 mg tablet 10 mg PO TID loratadine 10 mg tablet 10 mg PO QAM PRN (Reason: allergies) Interventions: ED Discharge Assessment Last Done: 09/08/23 12:02 Discharge Date/Time: 09/08/23 12:03 Print Language: Kyrgyz
== END 2023-09-08 12:03 | disposition home or self-care (01) ==
PROVIDERS: Emergency Provider Emergency Medicine; PCP Internal Medicine
DX: H00.014 Hordeolum externum left upper eyelid (principal); H01.004 Unspecified blepharitis left upper eyelid; H57.12 Ocular pain, left eye
CPT/HCPCS: 99282; 99283

== ENCOUNTER 2024-01-03 13:28 | Outpatient (AMB) | payer MEDICAID, SELFPAY ==
[2024-01-03 13:29] VITALS: BMI 30.6
--- NOTE | 2024-01-03 13:29 | A.OFFVIS_ITS ---
Vital Signs 01/03/24 13:29 Height 5 ft 3 in Weight 173 lb BMI 30.6 Intake Visit Reasons: 4 month follow-up abdominal wall hernia Intake Note: This patient presents for a four month follow-up for abdominal wall hernia. Patient c/o; reports no complaints. Internet Marketing Specialist Required: Yes Internet Marketing Specialist Language: Chair Pad Maker Name: Govind Information Interpreted: non-clinical & clinical Accompanied by: Self / Same As Patient Allergies No Known Allergies [No Known Allergies*] Allergy (Unknown, Verified 01/03/24 13:35) Medication List - Last Reconciled 01/03/24 by Kyler Little MD acetaminophen-codeine 300-30 mg 1 tab PO TID PRN albuterol sulfate 90 mcg/actuation (ProAir HFA) 2 puffs inhalation QID amlodipine 10 mg PO QAM amoxicillin-pot clavulanate 875-125 mg 1 tab PO BID ciprofloxacin-hydrocortisone 0.2-1 % 3 drps otic (ears) BID 7 days cyclobenzaprine 10 mg PO TID epinephrine (EpiPen) 0.3 mg IM Q10M PRN erythromycin 1 appl ophthalmic (eye) BID fluticasone propionate 50 mcg/actuation 1 spray intranasal QAM ibuprofen 400 mg PO Q8H lidocaine 5% (Lidoderm) 1 patch topical DAILY linaclotide (Linzess) 72 mcg PO QAM loratadine 10 mg PO DAILY loratadine 10 mg PO QAM PRN lorazepam 0.5 mg PO DAILY PRN methocarbamol 500 mg PO TID PRN methocarbamol 500 mg PO TID naproxen 500 mg PO BID PRN zpvoligj-tahmmaohb-II 3.5-10,000-1 mg/mL-unit/mL-% 4 drps otic (ear) left Q8H 10 days omeprazole 20 mg PO DAILY tramadol 50 mg PO TID PRN HPI HPI 4 month follow-up abdominal wall hernia: Details: She is here for follow-up for her small hernia on the right side of her abdomen. She had a CAT scan done last 06/05/2023 and this showed a small defect right lower quadrant with some fat. This seems to be an incisional hernia from her previous Pfannenstiel incision She says that this really has not been bothering her. She says she may have some pain whenever she is picking up something from the floor but other than that, she says that she does not have any complaints with regards to this area. She has good oral intake. [facility] Medical History Incisional hernia Diabetes Surgical History History of endoscopy H/O colonoscopy H/O section complicating Social History Household Members: Family Housing: House Alcohol intake: never Patient Tobacco Use Status: Former Tobacco user Review of Systems Const Denies chills and Denies fever(s) Card Denies chest pain, Denies dyspnea and Denies dyspnea on exertion Resp Denies cough, Denies dyspnea and Denies dyspnea on exertion GI Denies hematochezia and Denies change in bowel habits Denies hematuria Musc Denies back pain and Denies limited range of motion Neuro Denies focal weakness and Denies convulsions Psych Denies depression and Denies mood swings Physical Exam Vital Signs: BMI result Body Mass Index 30.6 Const General: comfortable and no acute distress Resp Effort & Inspection: normal respiratory effort Cardio Rate: regular rate GI Other: Soft, no guarding, no rebound, no tenderness, I am unable to feel the hernia even with Valsalva maneuvers on the right lower quadrant Assessment & Plan Assessment & Plan (1) Incisional hernia: Code(s): K43.2 - Incisional hernia without obstruction or gangrene Category: Medical Plan: Her CAT scan shows a small fat containing hernia right lower quadrant likely from her previous Pfannenstiel incision. She says that this is not bothering her at all. She wants to hold off on surgical intervention I did tell her that she wants me to re-evaluate this down the line, she is welcome to come back to the office on a p.r.n. basis. Currently she says she has had no pain or tenderness on the area. She denies GI complaints. Coding Level of Care Code Est Pt Level 2 (34479) Diagnoses Incisional hernia K43.2
== END 2024-01-03 13:41 | disposition home or self-care (01) ==
PROVIDERS: PCP Internal Medicine; Referring Provider Internal Medicine; Visit Provider Surgery
DX: K43.2 Incisional hernia without obstruction or gangrene (principal)
CPT/HCPCS: 99212

== ENCOUNTER → 2024-01-03 13:28 | Outpatient (BNVA) | payer MEDICAID, SELFPAY | PROVIDERS: PCP Internal Medicine; Visit Provider Surgery | DX: K43.2 Incisional hernia without obstruction or gangrene (principal) | CPT/HCPCS: 99212 ==

== ENCOUNTER 2024-01-30 20:07 | Emergency (ER) | payer MEDICAID, SELFPAY ==
--- NOTE | ~2024-01-30 | CT_ITS ---
EXAMINATION: CT HEAD WITHOUT CONTRAST CLINICAL INFORMATION: Right-sided headache and blurred vision. COMPARISON: Head CT report from 08/01/2011. TECHNIQUE: Contiguous axial imaging was performed from the skullbase to vertex without intravenous administration of contrast. This CT examination was performed using dose optimization techniques as appropriate, variously including the following: *Automated exposure control *Adjustment of mA and/or kV according to patient size (this includes techniques or standardized protocols for targeted exams where dose is matched to indication/reason for exam; i.e. extremities or head) *Use of iterative reconstruction technique DLP: 597 mGy-cm. FINDINGS: There is no evidence of acute intracranial hemorrhage or territorial infarction. No abnormal mass effect or midline shift is seen. Beckett to white matter differentiation is well preserved. No extra-axial fluid collections are identified. The ventricles are normal in size. There is no abnormal attenuation within the brain parenchyma. The osseous structures and soft tissues are normal. The mastoid air cells and visualized portions of the paranasal sinuses are well aerated. CT/CT head/brain wo IV con IMPRESSION: No acute intracranial pathology.
[2024-01-30 20:27] VITALS: BP 150/68; PULSE 77; RESP 18; TEMP 36.8; O2SAT 95; BMI 28.3
--- NOTE | 2024-01-30 20:28 | ED_ITS ---
HPI - Headache General Chief Complaint: Headache Stated Complaint: headache Time Seen by Provider: 01/30/24 22:52 Source: patient and old records reviewed Mode of arrival: ambulatory Limitations: no limitations History of Present Illness ED Provider: KRZYSZTOF PIERCE Narrative: 64 yo female not on thinners, gastritis, depression, GERD, DM, asthma here with 3 days R sided throbbing headache photophobia no fevers, no n/v started at rest and has worsened x 3 days. No numbness, weakness, felt blurry vision. Worse each day. Has not had a headache last this long. She takes advil but it does not get better. MD elicited complaint: headache Onset (ago): day(s) (3) Onset description: gradually Location: right and temporal Severity: moderate Quality & Timing: aching Exacerbating factors: light Relieving factors: nothing Context: occurred at rest Associated symptoms: none Treatments prior to arrival: ibuprofen Related Data Home Medications ?Medication ?Instructions ?Recorded ?Confirmed epinephrine 0.3 mg/0.3 mL 0.3 mg IM Q10M PRN 10/22/20 01/03/24 injection, auto-injector (EpiPen) ibuprofen 200 mg capsule 400 mg PO Q8H 10/22/20 01/03/24 loratadine 10 mg capsule 10 mg PO DAILY 10/22/20 01/03/24 methocarbamol 500 mg tablet 500 mg PO TID 10/22/20 01/03/24 amlodipine 10 mg tablet 10 mg PO QAM 07/12/23 01/03/24 cyclobenzaprine 10 mg tablet 10 mg PO TID 07/12/23 01/03/24 fluticasone propionate 50 1 spray intranasal QAM 07/12/23 01/03/24 mcg/actuation nasal spray,suspension loratadine 10 mg tablet 10 mg PO QAM PRN allergies 07/12/23 01/03/24 lorazepam 0.5 mg tablet 0.5 mg PO DAILY PRN anxiety 07/12/23 01/03/24 Previous Rx's ?Medication ?Instructions ?Recorded lidocaine 5 % topical patch 1 patch topical DAILY #15 ea 12/18/20 (Lidoderm) naproxen 500 mg tablet 500 mg PO BID PRN pain #20 tabs 12/18/20 albuterol sulfate 90 mcg/actuation 2 puff inhalation QID prn wheezing 06/21/21 aerosol inhaler (ProAir HFA) #8.5 grams linaclotide 72 mcg capsule 72 mcg PO QAM #30 caps 11/11/21 (Linzess) omeprazole 20 mg capsule,delayed 20 mg PO DAILY #30 caps 11/11/21 release methocarbamol 500 mg tablet 500 mg PO TID PRN muscle spasm #14 07/29/22 tabs amoxicillin 875 mg-potassium 1 tab PO BID Otitis media #20 tabs 08/31/22 clavulanate 125 mg tablet vjzwusfn-evvxsmunw-rgikyxvle 3.5 4 drp otic (ear) left Q8H Otitis 08/31/22 mg-10,000 unit/mL-1 % ear externa 10 days #10 mL drops,susp ciprofloxacin 0.2 %-hydrocortisone 3 drp otic (ears) BID 7 days #10 mL 09/05/22 1 % ear drops,suspension acetaminophen 300 mg-codeine 30 mg 1 tab PO TID PRN severe pain #14 08/30/23 tablet tabs tramadol 50 mg tablet 50 mg PO TID PRN pain #20 tabs 09/01/23 erythromycin 5 mg/gram (0.5 %) eye 1 appl ophthalmic (eye) BID #3.5 09/08/23 ointment grams Allergies Allergy/AdvReac Type Severity Reaction Status Date / Time No Known Allergies Allergy Unknown Verified 01/30/24 20:29 [No Known Allergies*] Review of Systems 2 Review of Systems: Constitutional : No Fever, No Chills, No Fatigue ENT/Mouth : No sore throat, No Rhinorrhea Eyes: No Eye Pain, No Swelling, No Redness Cardiovascular : No Chest Pain, No SOB, No Dyspnea on Exertion Respiratory : No Cough, No Sputum Gastrointestinal : No Nausea, No Vomiting, No Diarrhea, No abdominal Pain Genitourinary : No Dysuria, No Urinary Frequency, No Hematuria, Musculoskeletal : No joint pain, No Myalgias, No Joint Swelling Skin : No Skin Lesions, No rash Neuro : No Weakness, No Numbness, No Dizziness, positive Headache Psych : No Anxiety/Panic, No Depression Heme/Lymph: No Bruising, No Bleeding,No Lymphadenopathy Endocrine : No Polyuria, No Polydipsia All other systems reviewed and are negative [facility] Past Medical History Attestation statement: The following information was validated with the patient. Source: old records reviewed Medical History Incisional hernia Diabetes Surgical History History of endoscopy H/O colonoscopy H/O section complicating Social History Social History Household Members: Family Housing: House Alcohol intake: never Patient Tobacco Use Status: Former Tobacco user Advance Directives: No Advance Directives Information Provided: Yes Do you have a plan to hurt others: No Plan Physical Exam 2 Vital Signs: Vital Signs: Last Vital Signs Temp 98.2 F 01/30/24 20:27 Pulse 77 01/30/24 20:27 Resp 18 01/30/24 20:27 BP 150/68 H 01/30/24 20:27 Pulse Ox 95 01/30/24 20:27 O2 Del Method Room Air 01/30/24 20:27 BMI result Body Mass Index 28.3 Appearance: Alert. Oriented X3. No acute distress. Eyes: Pupils equal, round and reactive to light. ENT: Pharynx normal. Neck: Normal inspection. Neck supple. no meningeal signs CVS: Normal heart rate and rhythm. Pulses normal. Respiratory: No respiratory distress. Breath sounds normal. Abdomen: Soft and nontender. Skin: Skin warm and dry. Normal skin color. Normal skin turgor. Extremities: No lower extremity edema. No calf ttp Neuro: Oriented X 3. No motor deficit. No sensory deficit. Course Course Course Narrative: This is a Rapid Medical Examination (RME) performed by Carla Elizabeth PA-C in triage. Full HPI, ROS, assessment and treatment plan per primary provider in the Main ED. 64 yo Portuguese speaking female presenting with right sided headache for the last 3 days, reports pain is 10/10. +blurred vision in the mornings that resolve. does not check her sugars. no other neuro symptoms. no hx migraines. no improvement w/ motrin and tylenol Plan: labs, CT head Reevaluation(s) Reevaluation #1: patient got up and walked out prior to me discharging her or going over papers Medical Decision Making Medical Decision Making MDM Narrative: 64 yo female not on thinners, gastritis, depression, GERD, DM, asthma, here with c/o 3 days R sided gradual onset headache that has worsening not responding to advil no fevers, trauma, neuro deficits at this time doubt SAH given gradual onset, no fevers to suggest [employer] infection labs and CT head reassuring. PO medications ordered. Will reassess R sided seems migraine like Differential Diagnosis Differential Diagnoses: The differential diagnosis associated with the presentation includes migraine, tension, acute headache Admission/Observation Consideration of admission/observation: Escalation of care including admission/observation considered feels better stable for DC Lab Data MDM Lab Attestation statement: I reviewed the patient's lab results. 01/30/24 21:19 01/30/24 21:19 Labs: Lab Results 01/30/24 Range/Units 21:19 WBC 7.6 (4.8-10.8) X10*3/uL RBC 5.00 (4.20-5.50) X10*6/uL Hgb 14.2 (12.0-16.0) g/dl Hct 41.6 (37.0-47.0) % MCV 83.2 (80.0-98.0) fL MCH 28.4 (27.0-33.0) pg MCHC 34.1 (31.0-35.0) g/dl RDW 12.9 (11.0-16.0) % Plt Count 223 (160-400) X10*3/uL MPV 10.4 (9.4-12.3) fL Immature Gran % (Auto) 0.3 (0.0-0.4) % Neut % (Auto) 60.9 (45-73) % Lymph % (Auto) 28.6 (20-40) % Garden % (Auto) 7.8 (2-11) % Eos % (Auto) 1.6 (0-4) % Baso % (Auto) 0.8 (0-2) % Lymph # (Auto) 2.2 (1.2-4.9) X10*3/uL Garden # (Auto) 0.6 (0.1-1.2) X10*3/uL Eos # (Auto) 0.1 (0.0-0.4) X10*3/uL Baso # (Auto) 0.1 (0.0-0.2) X10*3/uL Abs Immat Gran (auto) 0.02 (0.00-0.03) X10*3/uL Absolute Neuts (auto) 4.6 (2.0-8.3) x10*3/uL Absolute Nucleated RBC 0.000 (0.0-0.012) X10*3/uL Nucleated RBC % (auto) 0.0 (0.0-0.2) /100WBC Sodium 140 (135-145) mmol/L Potassium 4.5 (3.3-5.1) mmol/L Chloride 105 (96-108) mmol/L Carbon Dioxide 26 (22-29) mmol/L Anion Gap 14 (12-20) BUN 17 H (9-16) mg/dL Creatinine 0.93 (0.5-1.4) mg/dL Estim Creat Clear Calc 63.5 Estimated GFR > 60 Random Glucose 132 H (60-115) mg/dL Calcium 9.5 (8.4-10.2) mg/dL Magnesium 2.5 (1.6-2.6) mg/dL Total Bilirubin 0.3 (0.0-1.0) mg/dL Direct Bilirubin 0.1 (0.0-0.5) mg/dL AST 18 (5-31) U/L ALT 16 (0-31) U/L Alkaline Phosphatase 102 (39-117) U/L Total Protein 7.7 (6.5-8.0) g/dL Albumin 4.5 (3.5-5.0) g/dL Independent Interpretation I performed an independent interpretation of an: CT Scan (no ICH) Radiology Impression Discussion of test interpretation with radiology: I have reviewed the radiologist's reading. External Record Review External record reviewed: Inpatient record Prescription Management I considered prescription management with: Pain Medication and Other Discharge Plan Discharge Clinical Impression: Acute headache Qualifiers: Headache type: tension-type Intractability: not intractable Qualified Code(s): G44.209 - Tension-type headache, unspecified, not intractable Patient Disposition: Home, Self-Care Instructions: Acute Headache (ED) Additional Instructions: labs and CT head normal return for confusion, vomiting, worsening headache or any other concerns Prescriptions: No Action acetaminophen-codeine 300-30 mg tablet 1 tab PO TID PRN (Reason: severe pain) Qty: 14 0RF tramadol 50 mg tablet 50 mg PO TID PRN (Reason: pain) Qty: 20 0RF lidocaine [Lidoderm] 5 % adhesive patch,medicated 1 patch topical DAILY Qty: 15 0RF Rx Instructions: leave on most painful area for up to 12 hrs naproxen 500 mg tablet 500 mg PO BID PRN (Reason: pain) Qty: 20 0RF fjbkimxg-gglyrupew-DZ 3.5-10,000-1 mg/mL-unit/mL-% drops,suspension 4 drp otic (ear) left Q8H 10 Days Qty: 10 0RF amoxicillin-pot clavulanate 875-125 mg tablet 1 tab PO BID Qty: 20 0RF ciprofloxacin-hydrocortisone 0.2-1 % drops,suspension 3 drp otic (ears) BID 7 Days Qty: 10 0RF albuterol sulfate [ProAir HFA] 90 mcg/actuation HFA aerosol inhaler 2 puff inhalation QID Qty: 8.5 0RF methocarbamol 500 mg tablet 500 mg PO TID PRN (Reason: muscle spasm) Qty: 14 0RF erythromycin 5 mg/gram (0.5 %) ointment 1 appl ophthalmic (eye) BID Qty: 3.5 0RF ibuprofen 200 mg capsule 400 mg PO Q8H epinephrine [EpiPen] 0.3 mg/0.3 mL auto-injector 0.3 mg IM Q10M PRN Rx Instructions: for 2 doses loratadine 10 mg capsule 10 mg PO DAILY methocarbamol 500 mg tablet 500 mg PO TID Linzess 72 mcg capsule 72 mcg PO QAM Qty: 30 6RF omeprazole 20 mg capsule,delayed release(DR/EC) 20 mg PO DAILY Qty: 30 6RF amlodipine 10 mg tablet 10 mg PO QAM lorazepam 0.5 mg tablet 0.5 mg PO DAILY PRN (Reason: anxiety) fluticasone propionate 50 mcg/actuation spray,suspension 1 spray intranasal QAM cyclobenzaprine 10 mg tablet 10 mg PO TID loratadine 10 mg tablet 10 mg PO QAM PRN (Reason: allergies) Print Language: Portuguese
[2024-01-30 21:22] LABS: MANUAL DIFF FLAG NO
[2024-01-30 21:24] LABS: Basophils Absolute Auto 0.1 X10*3/uL (0.0-0.2); Basophils Percent Auto 0.8 % (0-2); Eosinophils Absolute Auto 0.1 X10*3/uL (0.0-0.4); Eosinophils Percent Auto 1.6 % (0-4); Hematocrit 41.6 % (37.0-47.0); Hemoglobin 14.2 g/dl (12.0-16.0); Imm Gran Abs Auto 0.02 X10*3/uL (0.00-0.03); Imm Gran Pct Auto 0.3 % (0.0-0.4); Lymphocytes Absolute Auto 2.2 X10*3/uL (1.2-4.9); Lymphocytes Percent Auto 28.6 % (20-40); Mean Corpuscular HGB Conc 34.1 g/dl (31.0-35.0); Mean Corpuscular Hemoglobin 28.4 pg (27.0-33.0); Mean Corpuscular Volume 83.2 fL (80.0-98.0); Mean Platelet Volume 10.4 fL (9.4-12.3); Monocytes Absolute Auto 0.6 X10*3/uL (0.1-1.2); Monocytes Percent Auto 7.8 % (2-11); Neutrophils Absolute Auto 4.6 x10*3/uL (2.0-8.3); Neutrophils Percent Auto 60.9 % (45-73); Platelet Count 223 X10*3/uL (160-400); Red Cell Distribution Width 12.9 % (11.0-16.0); White Blood Count 7.6 X10*3/uL (4.8-10.8)
[2024-01-30 21:39] LABS: Alanine Aminotransferase 16 U/L (0-31); Albumin Level 4.5 g/dL (3.5-5.0); Alkaline Phosphatase 102 U/L (39-117); Anion Gap 14 (12-20); Aspartate Amino Transferase 18 U/L (5-31); Bilirubin Direct 0.1 mg/dL (0.0-0.5); Bilirubin Total 0.3 mg/dL (0.0-1.0); Blood Urea Nitrogen 17 mg/dL (9-16); Calcium 9.5 mg/dL (8.4-10.2); Carbon Dioxide 26 mmol/L (22-29); Chloride 105 mmol/L (96-108); Creatinine Clr Calc Pharmacy 63.5; Estimated Glomerular Filt Rate > 60; Glucose Random 132 mg/dL (60-115); Magnesium 2.5 mg/dL (1.6-2.6); Potassium 4.5 mmol/L (3.3-5.1); Sodium 140 mmol/L (135-145); Total Protein 7.7 g/dL (6.5-8.0)
--- NOTE | 2024-01-30 23:30 | PC.NURSE ---
this RN went in room to medicate pt per mar however pt was not in room ? lwct after MD left room, pt left before receiving po medications or discharge papers.
[2024-01-31 00:13] VITALS: BP 150/68; PULSE 77; RESP 18; TEMP 36.8; O2SAT 95
== END 2024-01-31 00:13 | disposition home or self-care (01) ==
PROVIDERS: Physician Assistant; Emergency Provider Emergency Medicine; PCP Internal Medicine
DX: G44.209 Tension-type headache, unspecified, not intractable (principal); Z79.899 Other long term (current) drug therapy
CPT/HCPCS: 36415; 70450; 80048; 80076; 83735; 85025; 99282; 99284

== ENCOUNTER 2024-01-31 09:04 | Emergency (ER) | payer MEDICAID, SELFPAY ==
[2024-01-31 09:11] VITALS: BP 129/75; PULSE 78; RESP 16; TEMP 36.1; O2SAT 97; BMI 30.1
[2024-01-31] MEDS: Butalb/Acetamin/Caff 50/325/40 TABLET 2 TAB PO (11:27)
[2024-01-31] MEDS: Metoclopramide HCl 10 MG TABLET PO (11:27)
--- NOTE | 2024-01-31 12:34 | ED_ITS ---
HPI - Headache General Chief Complaint: Headache Stated Complaint: headache. seen last night Time Seen by Provider: 01/31/24 10:17 Source: patient, RN notes reviewed and old records reviewed Mode of arrival: ambulatory History of Present Illness ED Provider: Shantel Parker PA-C HPI Narrative: 64-year-old female with a past medical history of gastritis, depression, HLD, GERD, diabetes, asthma, presenting to the ED complaining of right-sided headache x 4-5 days with associated photophobia and lightheadedness/dizziness. Reports pain has been constant however fluctuates in intensity, not maximal at onset. Also reports intermittent right eye blurry vision. Has been taking Advil with little relief. Patient was evaluated in our ED yesterday had labs and CT however LWCT due to pain. Denies numbness, tingling, weakness, vision loss, nausea/vomiting or taking anticoagulation MD elicited complaint: headache Related Data Home Medications ?Medication ?Instructions ?Recorded ?Confirmed epinephrine 0.3 mg/0.3 mL 0.3 mg IM Q10M PRN 10/22/20 01/03/24 injection, auto-injector (EpiPen) ibuprofen 200 mg capsule 400 mg PO Q8H 10/22/20 01/03/24 loratadine 10 mg capsule 10 mg PO DAILY 10/22/20 01/03/24 methocarbamol 500 mg tablet 500 mg PO TID 10/22/20 01/03/24 amlodipine 10 mg tablet 10 mg PO QAM 07/12/23 01/03/24 cyclobenzaprine 10 mg tablet 10 mg PO TID 07/12/23 01/03/24 fluticasone propionate 50 1 spray intranasal QAM 07/12/23 01/03/24 mcg/actuation nasal spray,suspension loratadine 10 mg tablet 10 mg PO QAM PRN allergies 07/12/23 01/03/24 lorazepam 0.5 mg tablet 0.5 mg PO DAILY PRN anxiety 07/12/23 01/03/24 Previous Rx's ?Medication ?Instructions ?Recorded lidocaine 5 % topical patch 1 patch topical DAILY #15 ea 12/18/20 (Lidoderm) naproxen 500 mg tablet 500 mg PO BID PRN pain #20 tabs 12/18/20 albuterol sulfate 90 mcg/actuation 2 puff inhalation QID prn wheezing 06/21/21 aerosol inhaler (ProAir HFA) #8.5 grams linaclotide 72 mcg capsule 72 mcg PO QAM #30 caps 11/11/21 (Linzess) omeprazole 20 mg capsule,delayed 20 mg PO DAILY #30 caps 11/11/21 release methocarbamol 500 mg tablet 500 mg PO TID PRN muscle spasm #14 07/29/22 tabs amoxicillin 875 mg-potassium 1 tab PO BID Otitis media #20 tabs 08/31/22 clavulanate 125 mg tablet lnatfvwp-flcbuvpkz-syuzivtas 3.5 4 drp otic (ear) left Q8H Otitis 08/31/22 mg-10,000 unit/mL-1 % ear externa 10 days #10 mL drops,susp ciprofloxacin 0.2 %-hydrocortisone 3 drp otic (ears) BID 7 days #10 mL 09/05/22 1 % ear drops,suspension acetaminophen 300 mg-codeine 30 mg 1 tab PO TID PRN severe pain #14 08/30/23 tablet tabs tramadol 50 mg tablet 50 mg PO TID PRN pain #20 tabs 09/01/23 erythromycin 5 mg/gram (0.5 %) eye 1 appl ophthalmic (eye) BID #3.5 09/08/23 ointment grams mllckkmfgr-wzcwmqkgkybbp-gtjvimko 1 cap PO Q4-6H PRN headache #14 01/31/24 50 mg-300 mg-40 mg capsule caps (Fioricet) Allergies Allergy/AdvReac Type Severity Reaction Status Date / Time No Known Allergies Allergy Unknown Verified 01/31/24 09:13 [No Known Allergies*] Review of Systems Review of Systems: Constitutional: No Fever, No Chills ENT/Mouth: No Ear Pain, No Nasal Congestion, No sore throat, No Rhinorrhea, No Swallowing Difficulty Eye: +blurry vision (intermittent) Cardiovascular: No Chest Pain, No SOB Respiratory: No Cough Gastrointestinal: No Nausea, No Vomiting, No Diarrhea, No Abdominal pain Musculoskeletal: No joint pain, No Myalgias, No Joint Swelling Skin: No Skin Lesions, No rash Neuro: No Weakness, No Numbness, No Paresthesias, +CHRISTIANSON Yes all other systems are reviewed and are negative Constitutional: Constitutional: Reports as per HPI Neurologic: Denies Abnormal speech present PMFSH Past Medical History Attestation statement: The following information was validated with the patient. Source: old records reviewed Medical History Incisional hernia Diabetes Surgical History History of endoscopy H/O colonoscopy H/O section complicating Social History Social History Household Members: Family Housing: House Alcohol intake: never Patient Tobacco Use Status: Former Tobacco user Advance Directives: No Physical Exam Vital Signs: Vital Signs: Last Vital Signs Temp 97 F 01/31/24 09:11 Pulse 74 01/31/24 13:02 Resp 16 01/31/24 09:11 BP 126/74 01/31/24 13:02 Pulse Ox 97 01/31/24 09:11 O2 Del Method Room Air 01/31/24 09:11 BMI result Body Mass Index 30.1 Const: General: cooperative, healthy appearing and no acute distress Orientation/consciousness: patient oriented x3 Limitations: no limitations HEENT: Head: Yes normal to inspection and Yes atraumatic Ears: hearing grossly normal bilaterally General nose exam: Normal external nose present Face and sinus: Yes normal facial exam Eyes: General: appearance normal, both eyes and all related structures Pupils: Equal, round and reactive pupils present EOM: EOMs intact bilaterally Neck: Neck: Yes normal visual inspection and Yes no meningeal signs Resp: Effort & Inspection: normal respiratory effort and no respiratory distress Cardio: Rate: regular rate Heart sounds: S1 normal heart sound present and S2 normal heart sound present GI: Inspection: Yes normal to inspection Palpation (GI): Soft to palpation, nontender, no guarding and not rigid Back/Spine/Pelvis: Other: No midline cervical/thoracic spinous tenderness/step-off or deformity Skin: Rashes: no rashes Wounds: no wounds Neuro: General: patient oriented x3, gait normal, tone normal, moves all extremities, no meningeal signs, no focal motor deficits and CN's II-XI intact bilaterally Cranial nerves: Yes CN's II-XII intact bilaterally and Yes Equal, round and reactive pupils present Cognition (Neuro): normal cognition Speech: No Abnormal speech present Gait exam (Neuro): Normal gait present Motor exam (neuro): 5/5 motor strength present throughout and no tremor noted Extrem: General: Yes normal to inspection Course Course Course Narrative: > reports mild symptomatic improvement after p.o. Reglan and Fioricet, will give IM Toradol and re-evaluate -1330--patient reports symptomatic improvement after IM Toradol in the ED, requesting discharge home. Will refer to Neurology. Recommended close PCP follow-up Results discussed with patient including worrisome signs and symptoms and strict return precautions, and when to return to the emergency department. They verbalized understanding and feel safe for discharge at this time. Medications Administered Discontinued Medications Generic Name Dose Route Start Last Admin Trade Name Freq PRN Reason Stop Dose Admin Acetaminophen/Butalbital/Caffeine 2 tab 01/31/24 10:44 01/31/24 11:27 Butalb/Acetamin/Caff 50/325/40 Tablet PO 01/31/24 10:45 2 tab ONCE ONE Administration Ketorolac Tromethamine 30 mg 01/31/24 12:21 01/31/24 12:43 Ketorolac Tromethamine 30 Mg/Ml Vial IM 01/31/24 12:22 30 mg ONCE ONE Administration Metoclopramide HCl 10 mg 01/31/24 10:44 01/31/24 11:27 Metoclopramide Hcl 10 Mg Tablet PO 01/31/24 10:45 10 mg ONCE ONE Administration Medical Decision Making Medical Decision Making [facility] Narrative: 64-year-old female with a past medical history of gastritis, depression, HLD, GERD, diabetes, asthma, presenting to the ED complaining of right-sided headache x 4-5 days with associated photophobia and lightheadedness/dizziness. Denies lightheadedness/dizziness at present. On exam vital signs stable, NAD, nontoxic appearing, no focal neuro deficits, ambulating with steady gait, no ataxia. Concern for migraine headache. Labs and CT reviewed from yesterday which are unremarkable. Lower suspicion for CVA/TIA, trigeminal neuralgia, TMJ. Plan: Pain management, re-evaluate Please refer to course for remaining clinical decision making, interpretation of labs/imaging results, and discussions with consultants and/or family members. Differential Diagnosis Differential Diagnoses: The differential diagnosis associated with the presentation includes As above Admission/Observation Consideration of admission/observation: Escalation of care including admission/observation considered Lab Data [facility] Lab Attestation statement: I reviewed the patient's lab results. Radiology Impression Discussion of test interpretation with radiology: I have reviewed the radiologist's reading. External Record Review External record reviewed: Inpatient record, Office record, Outpatient record, Prior outpatient labs, Prior outpatient radiology, Primary care record and Outside ED record Tests considered The following testing was considered but not selected: As above Prescription Management I considered prescription management with: Pain Medication Chronic Conditions Patient?s care impacted by: Diabetes Discharge Plan Discharge Clinical Impression: Migraine Patient Disposition: Home, Self-Care Instructions: Migraine Headache (ED) Additional Instructions: Fioricet is a combination migraine medication, take for headaches as needed. Be aware this has Tylenol mixed in, do not exceed 4 g of Tylenol in 1 day In addition take ibuprofen Follow-up with your doctor as well as neurology If headache persist or worsen/becomes unbearable, you have weakness, numbness, vision change or loss return to the ED Prescriptions: New hzdvkcqiye-jqhliaxlmxjti-kotn [Fioricet] 50-300-40 mg capsule 1 cap PO Q4-6H PRN (Reason: headache) Qty: 14 0RF No Action acetaminophen-codeine 300-30 mg tablet 1 tab PO TID PRN (Reason: severe pain) Qty: 14 0RF tramadol 50 mg tablet 50 mg PO TID PRN (Reason: pain) Qty: 20 0RF lidocaine [Lidoderm] 5 % adhesive patch,medicated 1 patch topical DAILY Qty: 15 0RF Rx Instructions: leave on most painful area for up to 12 hrs naproxen 500 mg tablet 500 mg PO BID PRN (Reason: pain) Qty: 20 0RF zskpwhvh-eizupkdll-TA 3.5-10,000-1 mg/mL-unit/mL-% drops,suspension 4 drp otic (ear) left Q8H 10 Days Qty: 10 0RF amoxicillin-pot clavulanate 875-125 mg tablet 1 tab PO BID Qty: 20 0RF ciprofloxacin-hydrocortisone 0.2-1 % drops,suspension 3 drp otic (ears) BID 7 Days Qty: 10 0RF albuterol sulfate [ProAir HFA] 90 mcg/actuation HFA aerosol inhaler 2 puff inhalation QID Qty: 8.5 0RF methocarbamol 500 mg tablet 500 mg PO TID PRN (Reason: muscle spasm) Qty: 14 0RF erythromycin 5 mg/gram (0.5 %) ointment 1 appl ophthalmic (eye) BID Qty: 3.5 0RF ibuprofen 200 mg capsule 400 mg PO Q8H epinephrine [EpiPen] 0.3 mg/0.3 mL auto-injector 0.3 mg IM Q10M PRN Rx Instructions: for 2 doses loratadine 10 mg capsule 10 mg PO DAILY methocarbamol 500 mg tablet 500 mg PO TID Linzess 72 mcg capsule 72 mcg PO QAM Qty: 30 6RF omeprazole 20 mg capsule,delayed release(DR/EC) 20 mg PO DAILY Qty: 30 6RF amlodipine 10 mg tablet 10 mg PO QAM lorazepam 0.5 mg tablet 0.5 mg PO DAILY PRN (Reason: anxiety) fluticasone propionate 50 mcg/actuation spray,suspension 1 spray intranasal QAM cyclobenzaprine 10 mg tablet 10 mg PO TID loratadine 10 mg tablet 10 mg PO QAM PRN (Reason: allergies) Referrals: [facility] [place] Neuro/Sleep [Provider Group] Gracie Whitfield MD [Primary Care Provider] - Discharge Date/Time: 01/31/24 13:52 Print Language: Cypriot
[2024-01-31] MEDS: Ketorolac Tromethamine 30 MG/ML VIAL IM (12:43)
[2024-01-31 12:57] VITALS: BP 135/71; PULSE 63
[2024-01-31 13:01] VITALS: BP 122/69; PULSE 68
[2024-01-31 13:02] VITALS: BP 126/74; PULSE 74
== END 2024-01-31 13:52 | disposition home or self-care (01) ==
PROVIDERS: Emergency Provider Emergency Medicine; PCP Internal Medicine
DX: G43.909 Migraine, unspecified, not intractable, without status migrainosus (principal); E11.9 Type 2 diabetes mellitus without complications; E78.5 Hyperlipidemia, unspecified; J45.909 Unspecified asthma, uncomplicated; Z79.899 Other long term (current) drug therapy
CPT/HCPCS: 96372; 99283; 99284; J1885

== ENCOUNTER 2024-02-16 10:13 | Outpatient (REF) | payer MEDICAID, SELFPAY ==
--- NOTE | ~2024-02-16 | MM_ITS ---
EXAMINATION: MM SCREENING DIGITAL BREAST TOMOSYNTHESIS, BILATERAL CLINICAL INFORMATION: Screening. Asymptomatic. COMPARISON: Mammography: This study is compared with prior exams dating back to 2019. TECHNIQUE: Digital breast tomosynthesis is performed in both the craniocaudal and mediolateral oblique views along with computer-aided detection (CAD). Synthesized 2D images are generated from the tomosynthesis. FINDINGS: The breasts are heterogeneously dense, which may obscure small masses (ACR BI-RADS breast composition Category c). There are no significant masses, abnormal calcifications, or other abnormalities. MM/MM tomosynthesis screening BI IMPRESSION: No mammographic evidence of malignancy. ASSESSMENT: BI-RADS BI-RADS 1 - Negative RECOMMENDATION: Routine annual mammography screening. 1 year F/U This examination should not preclude the clinical evaluation of a suspicious palpable abnormality. This patient's information was entered into a reminder system with a target due date for their next mammogram. Electronically signed by: Adriana Braga MD 03/18/2024 11:28 PM EDT
== END 2024-02-16 10:14 | disposition home or self-care (01) ==
LOC: HO.MAMMO 10:13
PROVIDERS: PCP Internal Medicine; Visit Provider Internal Medicine
DX: Z12.31 Encounter for screening mammogram for malignant neoplasm of breast (principal)
CPT/HCPCS: 77063; 77067

== ENCOUNTER → 2024-02-16 10:30 | Outpatient (BNV) | payer MEDICAID, SELFPAY | PROVIDERS: PCP Internal Medicine; Visit Provider Radiology Diagnostic Radiology | DX: Z12.31 Encounter for screening mammogram for malignant neoplasm of breast (principal) | CPT/HCPCS: 77063; 77067 ==

== ENCOUNTER 2024-05-05 11:58 | Emergency (ER) | payer MEDICAID, SELFPAY ==
[2024-05-05 12:09] VITALS: BP 143/78; PULSE 80; RESP 16; TEMP 36.4; O2SAT 99; BMI 30.1
--- NOTE | 2024-05-05 12:10 | ED.GENADULT ---
HPI - General Adult General Chief complaint: Allergic Reaction Stated complaint: Allergic reaction on lips? Time Seen by Provider: 05/05/24 12:19 Source: patient Mode of arrival: ambulatory Limitations: no limitations History of Present Illness ED Provider: Carla Elizabeth PA-C HPI narrative: 64 yo female with history of asthma, DM, HLD, depression, constipation presents to the ER for evaluation of itching lips 1 week after she got a lip liner tattooed. She reports she is been using cold sore medication from the pharmacy to the area with no improvement. She reports the itching is primarily on the sides of her mouth and there is a rash with some redness and yellow crusting. She denies any significant swelling of the lips, rash on other parts of the body. No difficulty swallowing or speaking MD complaint: Rash on the lips Onset (ago): week(s) (1) Location: mouth Radiation: non-radiation Severity: moderate Quality: burning and other (itching) Pain Consistency: constant Relieving factors: none Exacerbating factors: none Associated symptoms: denies other symptoms Treatments prior to arrival: other (herpicin ) Related Data Home Medications ?Medication ?Instructions ?Recorded ?Confirmed epinephrine 0.3 mg/0.3 mL 0.3 mg IM Q10M PRN 10/22/20 01/03/24 injection, auto-injector (EpiPen) ibuprofen 200 mg capsule 400 mg PO Q8H 10/22/20 01/03/24 loratadine 10 mg capsule 10 mg PO DAILY 10/22/20 01/03/24 methocarbamol 500 mg tablet 500 mg PO TID 10/22/20 01/03/24 amlodipine 10 mg tablet 10 mg PO QAM 07/12/23 01/03/24 cyclobenzaprine 10 mg tablet 10 mg PO TID 07/12/23 01/03/24 fluticasone propionate 50 1 spray intranasal QAM 07/12/23 01/03/24 mcg/actuation nasal spray,suspension loratadine 10 mg tablet 10 mg PO QAM PRN allergies 07/12/23 01/03/24 lorazepam 0.5 mg tablet 0.5 mg PO DAILY PRN anxiety 07/12/23 01/03/24 Previous Rx's ?Medication ?Instructions ?Recorded lidocaine 5 % topical patch 1 patch topical DAILY #15 ea 12/18/20 (Lidoderm) naproxen 500 mg tablet 500 mg PO BID PRN pain #20 tabs 12/18/20 albuterol sulfate 90 mcg/actuation 2 puff inhalation QID prn wheezing 06/21/21 aerosol inhaler (ProAir HFA) #8.5 grams linaclotide 72 mcg capsule 72 mcg PO QAM #30 caps 11/11/21 (Linzess) omeprazole 20 mg capsule,delayed 20 mg PO DAILY #30 caps 11/11/21 release methocarbamol 500 mg tablet 500 mg PO TID PRN muscle spasm #14 07/29/22 tabs amoxicillin 875 mg-potassium 1 tab PO BID Otitis media #20 tabs 08/31/22 clavulanate 125 mg tablet qgexcqnb-gvyfwlpuy-pijxfiptg 3.5 4 drp otic (ear) left Q8H Otitis 08/31/22 mg-10,000 unit/mL-1 % ear externa 10 days #10 mL drops,susp ciprofloxacin 0.2 %-hydrocortisone 3 drp otic (ears) BID 7 days #10 mL 09/05/22 1 % ear drops,suspension acetaminophen 300 mg-codeine 30 mg 1 tab PO TID PRN severe pain #14 08/30/23 tablet tabs tramadol 50 mg tablet 50 mg PO TID PRN pain #20 tabs 09/01/23 erythromycin 5 mg/gram (0.5 %) eye 1 appl ophthalmic (eye) BID #3.5 09/08/23 ointment grams iblpjsvfyt-xkcbtarkldqpk-hbmwbxrm 1 cap PO Q4-6H PRN headache #14 01/31/24 50 mg-300 mg-40 mg capsule caps (Fioricet) mupirocin 2 % topical ointment 1 appl topical TID #22 grams 05/05/24 Allergies Allergy/AdvReac Type Severity Reaction Status Date / Time No Known Allergies Allergy Unknown Verified 05/05/24 12:14 [No Known Allergies*] Review of Systems Review of Systems: Yes all other systems are reviewed and are negative PMF Past Medical History Medical History Incisional hernia Diabetes Surgical History History of endoscopy H/O colonoscopy H/O section complicating Social History Social History Household Members: Family Housing: House Alcohol intake: never Patient Tobacco Use Status: Former Tobacco user Physical Exam ED Vital Signs: Vital Signs - 24 hr 05/05/24 12:09 Temperature 97.6 F Pulse Rate 80 Respiratory Rate 16 Blood Pressure 143/78 H Pulse Oximetry 99 Oxygen Delivery Method Room Air BMI result Body Mass Index 30.1 Appearance: Alert. Oriented X3. No acute distress. HEENT: Normocephalic, atraumatic. Face is equal and symmetrical. Normal inspection of the eyes and associated structures. Normal inspection of the nose. There is mild rash of the vermilion border, mostly at the angles of the lips laterally. There is a erythematous and slightly yellow crusting rash. Normal inspection of the mouth otherwise. CVS: Normal heart rate and rhythm. Pulses normal. Respiratory: No respiratory distress. Skin: Skin warm and dry. Normal skin color. Normal skin turgor. No rashes. Extremities: normal inspection x4. Neuro: Oriented X 3. normal inspection Course Course Course Narrative: This is a Rapid Medical Examination (RME) performed by Tyler Lopez PA-C in triage. Full HPI, ROS, assessment and treatment plan per primary provider in the Main ED. 64 yo female here for eval of itching/ pain to 8/10 lips after getting a lip liner tattoo 2 weeks ago. symptoms began 1 week after this. Plan: medication Medical Decision Making Medical Decision Making MDM Narrative: 64-year-old female presents the ER for evaluation of a dry, scaling, itching and burning rash on the vermilion border. Area is erythematous with some yellow crusting on the edges of the lips bilaterally most consistent with impetigo. Will treat with topical mupirocin. No evidence of significant chelitis, low suspicion for allergic reaction, angioedema. Stable for discharge home with outpatient follow-up. Return precautions were discussed. Differential Diagnosis Differential Diagnoses: The differential diagnosis associated with the presentation includes Impetigo, cheilitis, atopic dermatitis, normal healing from tattoo, first-degree burn, allergic reaction External Record Review External record reviewed: Prior outpatient labs Prescription Management I considered prescription management with: Antibiotic and Other (Benadryl, hydrocortisone) Chronic Conditions Patient?s care impacted by: Diabetes Critical Care Time Critical Care Time Critical Care Time: No Discharge Plan Discharge Clinical Impression: Impetigo Patient Disposition: Home, Self-Care Instructions: Impetigo (DC) Additional Instructions: Use the prescribed antibiotic ointment on the area two times per day for 1 week. Cold compress Apply a cold compress or ice pack wrapped in a clean cloth to the itchy area.?Avoid direct contact between the ice and the tattoo.? Moisturizer Apply a fragrance-free moisturizer to the itchy area.?For older tattoos, you can try an oatmeal-based lotion or a thicker moisturizer made from cocoa butter.?Antihistamine Take an antihistamine like diphenhydramine (Benadryl) to reduce itching. Follow up with your doctor as needed Prescriptions: New mupirocin 2 % ointment 1 appl topical TID Qty: 22 0RF No Action acetaminophen-codeine 300-30 mg tablet 1 tab PO TID PRN (Reason: severe pain) Qty: 14 0RF tramadol 50 mg tablet 50 mg PO TID PRN (Reason: pain) Qty: 20 0RF lidocaine [Lidoderm] 5 % adhesive patch,medicated 1 patch topical DAILY Qty: 15 0RF Rx Instructions: leave on most painful area for up to 12 hrs naproxen 500 mg tablet 500 mg PO BID PRN (Reason: pain) Qty: 20 0RF jssywsaa-qkylfbehk-CP 3.5-10,000-1 mg/mL-unit/mL-% drops,suspension 4 drp otic (ear) left Q8H 10 Days Qty: 10 0RF amoxicillin-pot clavulanate 875-125 mg tablet 1 tab PO BID Qty: 20 0RF ciprofloxacin-hydrocortisone 0.2-1 % drops,suspension 3 drp otic (ears) BID 7 Days Qty: 10 0RF albuterol sulfate [ProAir HFA] 90 mcg/actuation HFA aerosol inhaler 2 puff inhalation QID Qty: 8.5 0RF methocarbamol 500 mg tablet 500 mg PO TID PRN (Reason: muscle spasm) Qty: 14 0RF erythromycin 5 mg/gram (0.5 %) ointment 1 appl ophthalmic (eye) BID Qty: 3.5 0RF xljhuhzokz-skrvexicljhig-ufvl [Fioricet] 50-300-40 mg capsule 1 cap PO Q4-6H PRN (Reason: headache) Qty: 14 0RF ibuprofen 200 mg capsule 400 mg PO Q8H epinephrine [EpiPen] 0.3 mg/0.3 mL auto-injector 0.3 mg IM Q10M PRN Rx Instructions: for 2 doses loratadine 10 mg capsule 10 mg PO DAILY methocarbamol 500 mg tablet 500 mg PO TID Linzess 72 mcg capsule 72 mcg PO QAM Qty: 30 6RF omeprazole 20 mg capsule,delayed release(DR/EC) 20 mg PO DAILY Qty: 30 6RF amlodipine 10 mg tablet 10 mg PO QAM lorazepam 0.5 mg tablet 0.5 mg PO DAILY PRN (Reason: anxiety) fluticasone propionate 50 mcg/actuation spray,suspension 1 spray intranasal QAM cyclobenzaprine 10 mg tablet 10 mg PO TID loratadine 10 mg tablet 10 mg PO QAM PRN (Reason: allergies) Referrals: Gracie Whitfield MD [Primary Care Provider] - Print Language: Malagasy
[2024-05-05 12:58] VITALS: BP 143/78; PULSE 80; RESP 16; TEMP 36.4; O2SAT 99
== END 2024-05-05 13:00 | disposition home or self-care (01) ==
LOC: HO.ED 12:56
PROVIDERS: Emergency Provider Emergency Medicine; PCP Internal Medicine
DX: L01.00 Impetigo, unspecified (principal); R21 Rash and other nonspecific skin eruption; Z79.899 Other long term (current) drug therapy
CPT/HCPCS: 99282

== ENCOUNTER 2024-05-07 15:52 | Outpatient (REF) | payer MEDICAID, SELFPAY ==
[2024-05-07 17:36] LABS: MANUAL DIFF FLAG NO
[2024-05-07 18:02] LABS: Basophils Absolute Auto 0.1 X10*3/uL (0.0-0.2); Basophils Percent Auto 0.8 % (0-2); Eosinophils Absolute Auto 0.2 X10*3/uL (0.0-0.4); Eosinophils Percent Auto 1.9 % (0-4); Hemoglobin 13.6 g/dl (12.0-16.0); Imm Gran Abs Auto 0.03 X10*3/uL (0.00-0.03); Imm Gran Pct Auto 0.4 % (0.0-0.4); Lymphocytes Absolute Auto 2.6 X10*3/uL (1.2-4.9); Lymphocytes Percent Auto 30.9 % (20-40); Mean Corpuscular HGB Conc 33.2 g/dl (31.0-35.0); Mean Corpuscular Hemoglobin 27.7 pg (27.0-33.0); Mean Corpuscular Volume 83.5 fL (80.0-98.0); Mean Platelet Volume 12.1 fL (9.4-12.3); Monocytes Absolute Auto 0.5 X10*3/uL (0.1-1.2); Monocytes Percent Auto 6.1 % (2-11); Neutrophils Percent Auto 59.9 % (45-73); Platelet Count 207 X10*3/uL (160-400); Red Blood Count 4.91 X10*6/uL (4.20-5.50); Red Cell Distribution Width 13.8 % (11.0-16.0); White Blood Count 8.4 X10*3/uL (4.8-10.8)
[2024-05-07 18:24] LABS: Alanine Aminotransferase 28 U/L (0-31); Albumin Level 4.3 g/dL (3.5-5.0); Alkaline Phosphatase 100 U/L (39-117); Anion Gap 13 (12-20); Aspartate Amino Transferase 36 U/L (5-31); Bilirubin Total 0.2 mg/dL (0.0-1.0); Blood Urea Nitrogen 17 mg/dL (9-16); Calcium 9.5 mg/dL (8.4-10.2); Carbon Dioxide 23 mmol/L (22-29); Chloride 106 mmol/L (96-108); Cholesterol 197 mg/dL (<200); Estimated Glomerular Filt Rate 48; Glucose Random 171 mg/dL (60-115); HDL Cholesterol 52 mg/dL (>40); LDL Cholesterol Calculated 114 mg/dL (<100); Potassium 4.2 mmol/L (3.3-5.1); Sodium 138 mmol/L (135-145); Total Protein 7.3 g/dL (6.5-8.0); Triglycerides 155 mg/dL (<150)
[2024-05-07 19:48] LABS: Reflex LDLD? No
[2024-05-08 10:19] LABS: HIV AB/AG Nonreactive (Nonreactive); HIV Num 1 0.06 S/CO (0.00-0.99)
== END 2024-05-07 15:53 | disposition home or self-care (01) ==
LOC: HO.HHCL 15:52
PROVIDERS: Visit Provider Internal Medicine
DX: E11.9 Type 2 diabetes mellitus without complications (principal); I10 Essential (primary) hypertension; R35.1 Nocturia
CPT/HCPCS: 36415; 80053; 80061; 85025; 87389

== ENCOUNTER 2024-07-14 10:42 | Emergency (ER) | payer MEDICAID, SELFPAY ==
--- NOTE | ~2024-07-14 | XR_ITS ---
CLINICAL HISTORY: cough 2 view chest x-ray. Comparison: CR/NE - XR CHEST 1V - 12/18/2020 09:[address]/SR - CHEST WITHOUT CONTRAST [id number] - 09/19/2019 01:06 PM EST Findings: Normal lung volumes. Lungs are clear. No pneumothorax or pleural effusion. Heart size normal. No passive venous congestion. No midline shift or tracheal deviation. No acute fracture. Impression: 1. No acute cardiopulmonary disease. This document has been electronically signed by: Dillon Campbell MD on 07/14/2024 11:24:51
[2024-07-14 10:51] VITALS: BP 134/83; PULSE 90; RESP 18; TEMP 37.2; O2SAT 96; BMI 30.2
--- NOTE | 2024-07-14 10:54 | ECG_ITS ---
Test Reason : CP Blood Pressure : / mmHG Vent. Rate : 085 BPM Atrial Rate : 085 BPM P-R Int : 138 ms QRS Dur : 064 ms QT Int : 340 ms P-R-T Axes : 054 021 048 degrees QTc Int : 404 ms Sinus rhythm with Premature atrial complexes Otherwise normal ECG When compared with ECG of 18-DEC-2020 09:01, Premature atrial complexes are now Present Referred By: Generic ED Physician Electronically Signed By:LOUANN CHILEL MD
[2024-07-14 12:00] VITALS: PULSE 86; RESP 18; O2SAT 95
[2024-07-14] MEDS: Albuterol/Iprat 2.5/0.5MG 3 ML AMPUL.NEB INHALE (12:00)
[2024-07-14 12:03] LABS: MANUAL DIFF FLAG NO
[2024-07-14 12:04] LABS: Basophils Absolute Auto 0.1 X10*3/uL (0.0-0.2); Basophils Percent Auto 0.8 % (0-2); Eosinophils Absolute Auto 0.1 X10*3/uL (0.0-0.4); Eosinophils Percent Auto 1.1 % (0-4); Hematocrit 41.5 % (37.0-47.0); Hemoglobin 14.1 g/dl (12.0-16.0); Imm Gran Abs Auto 0.07 X10*3/uL (0.00-0.03); Imm Gran Pct Auto 0.6 % (0.0-0.4); Lymphocytes Absolute Auto 2.2 X10*3/uL (1.2-4.9); Lymphocytes Percent Auto 20.2 % (20-40); Mean Corpuscular Volume 82.5 fL (80.0-98.0); Mean Platelet Volume 10.8 fL (9.4-12.3); Monocytes Absolute Auto 0.8 X10*3/uL (0.1-1.2); Monocytes Percent Auto 7.6 % (2-11); Neutrophils Absolute Auto 7.6 x10*3/uL (2.0-8.3); Neutrophils Percent Auto 69.7 % (45-73); Platelet Count 218 X10*3/uL (160-400); Red Blood Count 5.03 X10*6/uL (4.20-5.50); Red Cell Distribution Width 13.3 % (11.0-16.0); White Blood Count 10.9 X10*3/uL (4.8-10.8)
[2024-07-14 12:19] LABS: Influenza A PCR NEGATIVE (Negative); Influenza B PCR NEGATIVE (Negative); Resp Syncy Virus RNA Qual PCR NEGATIVE (Negative); SARS COV2 PCR INHOUSE NEGATIVE (Negative)
--- NOTE | 2024-07-14 12:20 | ED_ITS ---
HPI - URI/Sore Throat General Chief Complaint: Upper Respiratory Symptoms Stated Complaint: Cough Time Seen by Provider: 07/14/24 11:16 Source: patient, RN notes reviewed and old records reviewed Mode of arrival: ambulatory History of Present Illness ED Provider: Shantel Parker PA-C HPI Narrative: 64-year-old female with a past medical history of incisional hernia, diabetes, asthma, diabetes, HLD, depression, presenting to the ED complaining of dry cough x1 month with associated SOB and chest discomfort with coughing. Admits was seen at clinic 2 weeks ago and prescribed prednisone which she took 3 pills of however self stopped. Denies fever, abdominal pain, pedal edema, sick contacts. Has been using inhaler at home without relief Related Data Home Medications ?Medication ?Instructions ?Recorded ?Confirmed epinephrine 0.3 mg/0.3 mL 0.3 mg IM Q10M PRN 10/22/20 01/03/24 injection, auto-injector (EpiPen) ibuprofen 200 mg capsule 400 mg PO Q8H 10/22/20 01/03/24 loratadine 10 mg capsule 10 mg PO DAILY 10/22/20 01/03/24 methocarbamol 500 mg tablet 500 mg PO TID 10/22/20 01/03/24 amlodipine 10 mg tablet 10 mg PO QAM 07/12/23 01/03/24 cyclobenzaprine 10 mg tablet 10 mg PO TID 07/12/23 01/03/24 fluticasone propionate 50 1 spray intranasal QAM 07/12/23 01/03/24 mcg/actuation nasal spray,suspension loratadine 10 mg tablet 10 mg PO QAM PRN allergies 07/12/23 01/03/24 lorazepam 0.5 mg tablet 0.5 mg PO DAILY PRN anxiety 07/12/23 01/03/24 Previous Rx's ?Medication ?Instructions ?Recorded lidocaine 5 % topical patch 1 patch topical DAILY #15 ea 12/18/20 (Lidoderm) naproxen 500 mg tablet 500 mg PO BID PRN pain #20 tabs 12/18/20 albuterol sulfate 90 mcg/actuation 2 puff inhalation QID prn wheezing 06/21/21 aerosol inhaler (ProAir HFA) #8.5 grams linaclotide 72 mcg capsule 72 mcg PO QAM #30 caps 11/11/21 (Linzess) omeprazole 20 mg capsule,delayed 20 mg PO DAILY #30 caps 11/11/21 release methocarbamol 500 mg tablet 500 mg PO TID PRN muscle spasm #14 07/29/22 tabs amoxicillin 875 mg-potassium 1 tab PO BID Otitis media #20 tabs 08/31/22 clavulanate 125 mg tablet ovybiuhr-algpkgfao-vdxzhcomb 3.5 4 drp otic (ear) left Q8H Otitis 08/31/22 mg-10,000 unit/mL-1 % ear externa 10 days #10 mL drops,susp ciprofloxacin 0.2 %-hydrocortisone 3 drp otic (ears) BID 7 days #10 mL 09/05/22 1 % ear drops,suspension acetaminophen 300 mg-codeine 30 mg 1 tab PO TID PRN severe pain #14 08/30/23 tablet tabs tramadol 50 mg tablet 50 mg PO TID PRN pain #20 tabs 09/01/23 erythromycin 5 mg/gram (0.5 %) eye 1 appl ophthalmic (eye) BID #3.5 09/08/23 ointment grams clekmfbzhw-opmkyryekhfap-pmzhtsdp 1 cap PO Q4-6H PRN headache #14 01/31/24 50 mg-300 mg-40 mg capsule caps (Fioricet) mupirocin 2 % topical ointment 1 appl topical TID #22 grams 05/05/24 Allergies Allergy/AdvReac Type Severity Reaction Status Date / Time No Known Allergies Allergy Unknown Verified 07/14/24 10:53 [No Known Allergies*] Review of Systems 2 Review of Systems: Yes all other systems are reviewed and are negative Constitutional: Constitutional: Reports as per [facility] Past Medical History Attestation statement: The following information was validated with the patient. Source: old records reviewed Medical History Incisional hernia Diabetes Surgical History History of endoscopy H/O colonoscopy H/O section complicating Social History Social History Household Members: Family Housing: House Alcohol intake: never Patient Tobacco Use Status: Former Tobacco user Advance Directives: No Advance Directives Information Provided: No Physical Exam 2 Vital Signs: Vital Signs: Last Vital Signs Temp 98.9 F 07/14/24 10:51 Pulse 86 07/14/24 12:00 Resp 18 07/14/24 12:00 BP 134/83 07/14/24 10:51 Pulse Ox 96 07/14/24 10:51 O2 Del Method Room Air 07/14/24 10:51 BMI result Body Mass Index 30.2 Const: General: cooperative, healthy appearing and no acute distress O rientation/consciousness: patient oriented x3 Limitations: no limitations HEENT: Head: Yes normal to inspection and Yes atraumatic Ears: hearing grossly normal bilaterally General nose exam: Normal external nose present Face and sinus: Yes normal facial exam Eyes: General: appearance normal, both eyes and all related structures EOM: EOMs intact bilaterally Neck: Neck: Yes normal visual inspection and Yes no meningeal signs Resp: Effort & Inspection: normal respiratory effort and no respiratory distress Auscultation: clear to auscultation bilaterally, no crackles, no rhonchi and no wheezes Cardio: Rate: regular rate Heart sounds: S1 normal heart sound present and S2 normal heart sound present Skin: Rashes: no rashes Wounds: no wounds Neuro: General: patient oriented x3, tone normal and no meningeal signs C ranial nerves: Yes CN's II-XII intact bilaterally Gait exam (Neuro): Normal gait present Extrem: General: Yes normal to inspection, Yes no pedal edema and Yes no calf tenderness Course Course Course Narrative: -labs reassuring. Troponin negative -COVID/flu/RSV negative -chest x-ray unremarkable > will treat patient for bronchitis Results discussed with patient including worrisome signs and symptoms and strict return precautions, and when to return to the emergency department. They verbalized understanding and feel safe for discharge at this time. Medications Administered Discontinued Medications Generic Name Dose Route Start Last Admin Trade Name Freq PRN Reason Stop Dose Admin Albuterol/Ipratropium 3 ml 07/14/24 11:59 07/14/24 12:00 Albuterol/Iprat 2.5/0.5mg 3 Ml Ampul.Neb INHALE 07/14/24 12:00 3 ml ONCE ONE Administration Medical Decision Making Medical Decision Making MDM Narrative: 64-year-old female with a past medical history of incisional hernia, diabetes, asthma, diabetes, HLD, depression, presenting to the ED complaining of dry cough x1 month with associated SOB and chest discomfort with coughing. On exam vital signs stable, NAD, nontoxic appearing, lungs CTA, talking in complete sentences, no pedal edema or calf tenderness. Concern for pneumonia vs bronchitis vs costochondritis. Lower suspicion for ACS, PE, DVT, dissection Plan: EKG, Labs, viral testing, CXR, ED bronch protocol Please refer to course for remaining clinical decision making, interpretation of labs/imaging results, and discussions with consultants and/or family members. Differential Diagnosis Differential Diagnoses: The differential diagnosis associated with the presentation includes As above Admission/Observation Consideration of admission/observation: Escalation of care including admission/observation considered Lab Data MDM Lab Attestation statement: I reviewed the patient's lab results. 07/14/24 11:57 07/14/24 11:57 Labs: Lab Results 07/14/24 07/14/24 Range/Units 11:12 11:57 WBC 10.9 H (4.8-10.8) X10*3/uL RBC 5.03 (4.20-5.50) X10*6/uL Hgb 14.1 (12.0-16.0) g/dl Hct 41.5 (37.0-47.0) % MCV 82.5 (80.0-98.0) fL MCH 28.0 (27.0-33.0) pg MCHC 34.0 (31.0-35.0) g/dl RDW 13.3 (11.0-16.0) % Plt Count 218 (160-400) X10*3/uL MPV 10.8 (9.4-12.3) fL Immature Gran % (Auto) 0.6 H (0.0-0.4) % Neut % (Auto) 69.7 (45-73) % Lymph % (Auto) 20.2 (20-40) % [place] % (Auto) 7.6 (2-11) % Eos % (Auto) 1.1 (0-4) % Baso % (Auto) 0.8 (0-2) % Lymph # (Auto) 2.2 (1.2-4.9) X10*3/uL [place] # (Auto) 0.8 (0.1-1.2) X10*3/uL Eos # (Auto) 0.1 (0.0-0.4) X10*3/uL Baso # (Auto) 0.1 (0.0-0.2) X10*3/uL Abs Immat Gran (auto) 0.07 H (0.00-0.03) X10*3/uL Absolute Neuts (auto) 7.6 (2.0-8.3) x10*3/uL Absolute Nucleated RBC 0.000 (0.0-0.012) X10*3/uL Nucleated RBC % (auto) 0.0 (0.0-0.2) /100WBC Sodium 138 (135-145) mmol/L Potassium 4.5 (3.3-5.1) mmol/L Chloride 106 (96-108) mmol/L Carbon Dioxide 24 (22-29) mmol/L Anion Gap 13 (12-20) BUN 10 (9-16) mg/dL Creatinine 0.73 (0.5-1.4) mg/dL Estim Creat Clear Calc 77.6 Estimated GFR > 60 Random Glucose 127 H (60-115) mg/dL Calcium 9.1 (8.4-10.2) mg/dL Total Bilirubin 0.5 (0.0-1.0) mg/dL Direct Bilirubin 0.1 (0.0-0.5) mg/dL AST 20 (5-31) U/L ALT 22 (0-31) U/L Alkaline Phosphatase 98 (39-117) U/L Troponin I High Sens < 2.7 (<3.5-17.0) ng/L Total Protein 7.5 (6.5-8.0) g/dL Albumin 4.1 (3.5-5.0) g/dL Influenza Type A (PCR) NEGATIVE (Negative) Influenza Type B (PCR) NEGATIVE (Negative) RSV RNA Qual (PCR) NEGATIVE (Negative) SARS-CoV-2 RNA (RT-PCR) NEGATIVE (Negative) Independent Interpretation I performed an independent interpretation of an: EKG (My interpretation EKG sinus rhythm with premature atrial complexes. AK interval 138. QTC 404. No STEMI) and Plain X-Ray Radiology Impression Discussion of test interpretation with radiology: I have reviewed the radiologist's reading. External Record Review External record reviewed: Inpatient record, Office record, Outpatient record, Prior outpatient labs, Prior outpatient radiology, Primary care record and Outside ED record Tests considered The following testing was considered but not selected: As above Prescription Management I considered prescription management with: Antibiotic Chronic Conditions Patient?s care impacted by: Diabetes and Other Discharge Plan Discharge Clinical Impression: Bronchitis Patient Disposition: Home, Self-Care Prescriptions: No Action acetaminophen-codeine 300-30 mg tablet 1 tab PO TID PRN (Reason: severe pain) Qty: 14 0RF tramadol 50 mg tablet 50 mg PO TID PRN (Reason: pain) Qty: 20 0RF lidocaine [Lidoderm] 5 % adhesive patch,medicated 1 patch topical DAILY Qty: 15 0RF Rx Instructions: leave on most painful area for up to 12 hrs naproxen 500 mg tablet 500 mg PO BID PRN (Reason: pain) Qty: 20 0RF grwlctvk-bjqncmbao-BE 3.5-10,000-1 mg/mL-unit/mL-% drops,suspension 4 drp otic (ear) left Q8H 10 Days Qty: 10 0RF amoxicillin-pot clavulanate 875-125 mg tablet 1 tab PO BID Qty: 20 0RF ciprofloxacin-hydrocortisone 0.2-1 % drops,suspension 3 drp otic (ears) BID 7 Days Qty: 10 0RF albuterol sulfate [ProAir HFA] 90 mcg/actuation HFA aerosol inhaler 2 puff inhalation QID Qty: 8.5 0RF methocarbamol 500 mg tablet 500 mg PO TID PRN (Reason: muscle spasm) Qty: 14 0RF erythromycin 5 mg/gram (0.5 %) ointment 1 appl ophthalmic (eye) BID Qty: 3.5 0RF kcwixnlaqa-vxkcepymytilh-zjmp [Fioricet] 50-300-40 mg capsule 1 cap PO Q4-6H PRN (Reason: headache) Qty: 14 0RF mupirocin 2 % ointment 1 appl topical TID Qty: 22 0RF ibuprofen 200 mg capsule 400 mg PO Q8H epinephrine [EpiPen] 0.3 mg/0.3 mL auto-injector 0.3 mg IM Q10M PRN Rx Instructions: for 2 doses loratadine 10 mg capsule 10 mg PO DAILY methocarbamol 500 mg tablet 500 mg PO TID Linzess 72 mcg capsule 72 mcg PO QAM Qty: 30 6RF omeprazole 20 mg capsule,delayed release(DR/EC) 20 mg PO DAILY Qty: 30 6RF amlodipine 10 mg tablet 10 mg PO QAM lorazepam 0.5 mg tablet 0.5 mg PO DAILY PRN (Reason: anxiety) fluticasone propionate 50 mcg/actuation spray,suspension 1 spray intranasal QAM cyclobenzaprine 10 mg tablet 10 mg PO TID loratadine 10 mg tablet 10 mg PO QAM PRN (Reason: allergies) Referrals: Gracie Whitfield MD [Primary Care Provider] - 3 days Print Language: [place]
[2024-07-14 12:21] LABS: Alanine Aminotransferase 22 U/L (0-31); Albumin Level 4.1 g/dL (3.5-5.0); Alkaline Phosphatase 98 U/L (39-117); Anion Gap 13 (12-20); Aspartate Amino Transferase 20 U/L (5-31); Bilirubin Direct 0.1 mg/dL (0.0-0.5); Bilirubin Total 0.5 mg/dL (0.0-1.0); Blood Urea Nitrogen 10 mg/dL (9-16); Calcium 9.1 mg/dL (8.4-10.2); Carbon Dioxide 24 mmol/L (22-29); Chloride 106 mmol/L (96-108); Creatinine Clr Calc Pharmacy 77.6; Estimated Glomerular Filt Rate > 60; Glucose Random 127 mg/dL (60-115); Potassium 4.5 mmol/L (3.3-5.1); Sodium 138 mmol/L (135-145); Total Protein 7.5 g/dL (6.5-8.0)
[2024-07-14 12:29] LABS: Troponin-I High Sensitivity < 2.7 ng/L (<3.5-17.0)
[2024-07-14 13:37] VITALS: BP 121/66; PULSE 88; RESP 16; TEMP 36.6; O2SAT 97
[2024-07-14 14:07] VITALS: BP 121/66; PULSE 88; RESP 16; TEMP 36.6; O2SAT 97
== END 2024-07-14 14:08 | disposition home or self-care (01) ==
PROVIDERS: Physician Assistant; Emergency Provider Emergency Medicine; PCP Internal Medicine
DX: J40 Bronchitis, not specified as acute or chronic (principal); R05.9 Cough, unspecified; R06.02 Shortness of breath; R07.89 Other chest pain; Z79.899 Other long term (current) drug therapy; Z03.818 Encounter for observation for suspected exposure to other biological agents ruled out
CPT/HCPCS: 0241U; 36415; 71046; 80048; 80076; 84484; 85025; 93005; 94640; 99284

== ENCOUNTER → 2024-07-14 10:54 | Outpatient (BNV) | payer MEDICAID, SELFPAY | PROVIDERS: Emergency Provider Emergency Medicine; PCP Internal Medicine; Visit Provider Internal Medicine Cardiovascular Disease | DX: I49.1 Atrial premature depolarization (principal) | CPT/HCPCS: 93010 ==

== ENCOUNTER → 2024-07-14 10:54 | Outpatient (BNV) | payer MEDICAID, SELFPAY | PROVIDERS: PCP Internal Medicine; Visit Provider Radiology Diagnostic Radiology | DX: R05.9 Cough, unspecified (principal) | CPT/HCPCS: 71046 ==

== ENCOUNTER 2024-11-09 10:14 | Emergency (ER) | payer MEDICAID, SELFPAY ==
--- NOTE | ~2024-11-09 | XR_ITS ---
CLINICAL HISTORY: midline tenderness 3 views lumbar spine Comparison: None Findings: No fractures or spondylolisthesis. Small anterior vertebral body osteophytes. Degenerative facet arthropathy L4-5. Disc spaces are maintained. Pedicles and transverse processes intact. Lordotic curvature is preserved. Borderline osteopenia. Calcified atherosclerotic disease is moderate. Sacroiliac joints unremarkable. Impression: 1. No compression fractures or spondylolisthesis. This document has been electronically signed by: Dillon Campbell MD on 11/09/2024 12:04:17
[2024-11-09 10:25] VITALS: BP 131/68; PULSE 93; RESP 18; TEMP 36.7; O2SAT 96; BMI 29.8
[2024-11-09 10:54] LABS: IDNOW Serial# 55D5AD1C; Strep A Nucleic Acid Positive (Negative)
--- NOTE | 2024-11-09 11:16 | ED_ITS ---
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 She denies fall or other trauma. Denies saddle anesthesia or bowel or bladder incontinence. Denies fevers. MD complaint: sore throat, back pain Onset (ago): day(s) Related Data Home Medications ?Medication ?Instructions ?Recorded ?Confirmed epinephrine 0.3 mg/0.3 mL 0.3 mg IM Q10M PRN 10/22/20 01/03/24 injection, auto-injector (EpiPen) ibuprofen 200 mg capsule 400 mg PO Q8H 10/22/20 01/03/24 loratadine 10 mg capsule 10 mg PO DAILY 10/22/20 01/03/24 methocarbamol 500 mg tablet 500 mg PO TID 10/22/20 01/03/24 amlodipine 10 mg tablet 10 mg PO QAM 07/12/23 01/03/24 cyclobenzaprine 10 mg tablet 10 mg PO TID 07/12/23 01/03/24 fluticasone propionate 50 1 spray intranasal QAM 07/12/23 01/03/24 mcg/actuation nasal spray,suspension loratadine 10 mg tablet 10 mg PO QAM PRN allergies 07/12/23 01/03/24 lorazepam 0.5 mg tablet 0.5 mg PO DAILY PRN anxiety 07/12/23 01/03/24 Previous Rx's ?Medication ?Instructions ?Recorded lidocaine 5 % topical patch 1 patch topical DAILY #15 ea 12/18/20 (Lidoderm) naproxen 500 mg tablet 500 mg PO BID PRN pain #20 tabs 12/18/20 albuterol sulfate 90 mcg/actuation 2 puff inhalation QID prn wheezing 06/21/21 aerosol inhaler (ProAir HFA) #8.5 grams linaclotide 72 mcg capsule 72 mcg PO QAM #30 caps 11/11/21 (Linzess) omeprazole 20 mg capsule,delayed 20 mg PO DAILY #30 caps 11/11/21 release methocarbamol 500 mg tablet 500 mg PO TID PRN muscle spasm #14 07/29/22 tabs amoxicillin 875 mg-potassium 1 tab PO BID Otitis media #20 tabs 08/31/22 clavulanate 125 mg tablet wwikppih-omrxklgpn-jvcncbanf 3.5 4 drp otic (ear) left Q8H Otitis 08/31/22 mg-10,000 unit/mL-1 % ear externa 10 days #10 mL drops,susp ciprofloxacin 0.2 %-hydrocortisone 3 drp otic (ears) BID 7 days #10 mL 09/05/22 1 % ear drops,suspension acetaminophen 300 mg-codeine 30 mg 1 tab PO TID PRN severe pain #14 08/30/23 tablet tabs tramadol 50 mg tablet 50 mg PO TID PRN pain #20 tabs 09/01/23 erythromycin 5 mg/gram (0.5 %) eye 1 appl ophthalmic (eye) BID #3.5 09/08/23 ointment grams mmbbtwjggz-nzmitjojjycao-oekfvfvz 1 cap PO Q4-6H PRN headache #14 01/31/24 50 mg-300 mg-40 mg capsule caps (Fioricet) mupirocin 2 % topical ointment 1 appl topical TID #22 grams 05/05/24 azithromycin 250 mg tablet See Rx Instructions PO .COMPLEX #6 07/14/24 tabs benzonatate 100 mg capsule 100 mg PO TID PRN cough #14 caps 07/14/24 prednisone 20 mg tablet 40 mg (2 x 20 mg) PO DAILY 5 days 07/14/24 #10 tabs amoxicillin 500 mg capsule 500 mg PO BID #19 caps 11/09/24 cyclobenzaprine 10 mg tablet 10 mg PO TID PRN muscle spasm #10 11/09/24 tabs lidocaine 5 % topical patch 1 patch topical DAILY #15 ea 11/09/24 Allergies Allergy/AdvReac Type Severity Reaction Status Date / Time No Known Allergies Allergy Unknown Verified 11/09/24 10:27 [No Known Allergies*] Review of Systems Review of Systems: As per HPI Yes all other systems are reviewed and are negative Constitutional: Constitutional: Reports as per [facility] Past Medical History Medical History Incisional hernia Diabetes Surgical History History of endoscopy H/O colonoscopy H/O section complicating Social History Social History Household Members: Family Housing: House Alcohol intake: never Patient Tobacco Use Status: Former Tobacco user Advance Directives: No Advance Directives Information Provided: No Physical Exam ED Vital Signs: Vital Signs - 24 hr 11/09/24 10:25 Temperature 98.0 F Pulse Rate 93 Respiratory Rate 18 Blood Pressure 131/68 Pulse Oximetry 96 Oxygen Delivery Method Room Air BMI result Body Mass Index 29.8 Vital signs have been reviewed and appear to be correct. Blood pressure normal. Heart rate normal. Respiratory rate normal. Temperature normal. Oxygen saturation normal. Const General: cooperative, healthy appearing and no acute distress Orientation/consciousness: oriented to person, oriented to place, oriented to time and patient oriented x3 Limitations: no limitations HENMT Head: Yes normocephalic and Yes atraumatic Ears: external ears normal, TM's normal bilaterally and EAC's normal General nose exam: Normal external nose present and Normal nasal mucous membranes and turbinates present Face and sinus: Yes face symmetric Mouth: Normal oral and palatal mucosa present, tongue normal, oropharynx normal, moist mucous membranes, no audible dysphonia, no drooling and no trismus Throat: Yes uvula midline and Yes abnormal tonsil (erythematous, no edema or exudate) Eyes Pupils: Equal, round and reactive pupils present Neck Neck: Yes normal visual inspection, Yes no lymphadenopathy and Yes supple Resp Effort & Inspection: normal respiratory effort and able to speak in complete sentences Auscultation: clear to auscultation bilaterally Cardio Rate: regular rate Rhythm: regular rhythm Heart sounds: S1 normal heart sound present and S2 normal heart sound present GI Palpation (GI): Soft to palpation and nontender Auscultation: normoactive bowel sounds General: Yes no CVA tenderness Back/Spine/Pelvis Back: no CVA tenderness Thoracic/Lumbar Spine: thoracic and lumbar spine normal to inspection, thoraco- lumbar ROM normal, pain with thoraco-lumbar ROM, paraspinal muscle tenderness bilaterally in the lower lumbar, No thoracic spinal tenderness and lumbar spinal tenderness at L4 and at L5 Skin General skin exam: elasticity normal and turgor normal Neuro General: oriented to person, oriented to place, oriented to time, patient oriented x3, gait normal, tone normal, moves all extremities, Normal light touch and pain sensation, no focal motor deficits, CN's II-XI intact bilaterally and deep tendon reflexes 2+ bilaterally Cranial nerves: Yes Equal, round and reactive pupils present Cognition (Neuro): normal cognition Motor exam (neuro): 5/5 motor strength present throughout, Normal motor muscle tone present throughout and Motor abnormalities not present Extrem General: Yes full ROM, Yes no pedal edema and Yes no calf tenderness Psych Mental Status: mental status grossly normal Affect: normal affect Thought process: Normal thought process present Medications Administered Discontinued Medications Generic Name Dose Route Start Last Admin Trade Name Freq PRN Reason Stop Dose Admin Amoxicillin 500 mg 11/09/24 11:17 11/09/24 11:30 Amoxicillin 500 Mg Capsule PO 11/09/24 11:18 500 mg ONCE ONE Administration Ibuprofen 600 mg 11/09/24 11:17 11/09/24 11:30 Ibuprofen 600 Mg Tablet PO 11/09/24 11:18 600 mg ONCE ONE Administration Medical Decision Making Medical Decision Making [facility] Narrative: Patient is a 64-year-old Urdu-speaking female with history of asthma, DM, GERD, high cholesterol, chronic low back pain, chronic idiopathic constipation presenting to emergency department with complaint of sore throat since Monday as well as generalized body aches and lower back pain since bending over to pick something up off the floor this morning. On exam patient is awake, A+Ox3, VS WNL, afebrile, normal neurological exam without focal deficits, physical exam findings as above. Given reported symptoms and physical exam findings, initial differential includes but is not limited to strep versus viral pharyngitis, COVID, flu, lumbar strain, lumbar radiculopathy, degenerative disc disease, disc herniation, spinal stenosis, spondylosis. Less likely vertebral fracture. Do not suspect malignancy/mass, SEA, cauda equina/cord compression. Strep swab positive, viral swab negative. X-ray notable for no acute fracture or subluxation. My interpretation is in agreement with the radiologist's interpretation. Patient updated on results and all questions answered. Will treat with amoxicillin, will also send lidocaine patches and flexeril for lumbar strain. Patient updated on results and all questions answered. Return precautions discussed. Patient verbalized understanding of and agreement with plan. In-person drone software development engineer was utilized for all interactions, assessments, and discussions. Differential Diagnosis Differential Diagnoses: The differential diagnosis associated with the presentation includes As per [facility] Admission/Observation Consideration of admission/observation: Escalation of care including admission/observation considered Patient would have been admitted to the hospital had their work up had any findings where hospital admission was appropriate and their clinical presentation warranted hospital admission. Lab Data [facility] Lab Attestation statement: I reviewed the patient's lab results. as per [facility] Labs: Lab Results 11/09/24 11/09/24 Range/Units 10:35 11:47 Influenza Type A (PCR) NEGATIVE (Negative) Influenza Type B (PCR) NEGATIVE (Negative) RSV RNA Qual (PCR) NEGATIVE (Negative) SARS-CoV-2 RNA (RT-PCR) NEGATIVE (Negative) S. pyogenes GrpA JOSE Positive A (Negative) Independent Interpretation I performed an independent interpretation of an: Plain X-Ray Interpretation: No acute fracture or subluxation lumbar x-ray Radiology Impression Discussion of test interpretation with radiology: I have reviewed the radi ologist's reading. Radiologist Impression: 3 views lumbar spine Comparison: None Findings: No fractures or spondylolisthesis. Small anterior vertebral body osteophytes. Degenerative facet arthropathy L4-5. Disc spaces are maintained. Pedicles and transverse processes intact. Lordotic curvature is preserved. Borderline osteopenia. Calcified atherosclerotic disease is moderate. Sacroiliac joints unremarkable. Impression: 1. No compression fractures or spondylolisthesis. External Record Review External record reviewed: Inpatient record, Office record and Outpatient record Prescription Management I considered prescription management with: Antibiotic Discharge Plan Discharge Clinical Impression: Acute streptococcal pharyngitis, Strain of lumbar region Patient Disposition: Home, Self-Care Additional Instructions: You were evaluated in the emergency department today for a sore throat. Your strep swab was positive. You are being prescribed antibiotics, please complete the full course as prescribed even if your symptoms improve. You are contagious until you have taken the antibiotics for 24 hours. Be sure to drink adequate fluids. You can use Tylenol and ibuprofen per package directions as needed for discomfort. You can also gargle with warm salt water several times daily. Follow-up with your primary care provider this week. Return to the emergency department if you develop difficulty swallowing, worsening pain, shortness of breath, are unable to swallow your saliva, fever not improved with Tylenol/ibuprofen, or any other concerning symptoms. You were evaluated in the emergency department today for back pain. Your evaluation did not show signs of medical conditions requiring emergent intervention at this time. We recommended that you use ibuprofen or Tylenol per package directions every 6 hours as needed for pain. If necessary, you can alternate these medications so that you take one medication every 3 hours. For instance, at noon take ibuprofen, then at 3:00 p.m. take Tylenol, then at 6:00 p.m. take ibuprofen. You have been prescribed a muscle relaxer called Flexeril (cyclobenzaprine) which you may take every 8 hours as needed for spasms. Do not drive, drink alcohol, or operate heavy machinery while taking this as it can cause drowsiness. You have been prescribed 5% topical lidocaine patches which you can wear for up to 12 hours in a 24 hour period. Do not apply heat directly over the patches. Please schedule an appointment for follow-up with your primary care physician this week for further evaluation of your symptoms. Return to the emergency department if you experience worsening back pain, difficulty walking, fevers, numbness, tingling, incontinence, groin numbness or tingling, or any other concerning symptoms. Prescriptions: New amoxicillin 500 mg capsule 500 mg PO BID Qty: 19 0RF cyclobenzaprine 10 mg tablet 10 mg PO TID PRN (Reason: muscle spasm) Qty: 10 0RF lidocaine 5 % adhesive patch,medicated 1 patch topical DAILY Qty: 15 0RF Rx Instructions: leave on most painful area for up to 12 hrs No Action acetaminophen-codeine 300-30 mg tablet 1 tab PO TID PRN (Reason: severe pain) Qty: 14 0RF tramadol 50 mg tablet 50 mg PO TID PRN (Reason: pain) Qty: 20 0RF lidocaine [Lidoderm] 5 % adhesive patch,medicated 1 patch topical DAILY Qty: 15 0RF Rx Instructions: leave on most painful area for up to 12 hrs naproxen 500 mg tablet 500 mg PO BID PRN (Reason: pain) Qty: 20 0RF pqvvdxnx-oozeaavjk-ZJ 3.5-10,000-1 mg/mL-unit/mL-% drops,suspension 4 drp otic (ear) left Q8H 10 Days Qty: 10 0RF amoxicillin-pot clavulanate 875-125 mg tablet 1 tab PO BID Qty: 20 0RF ciprofloxacin-hydrocortisone 0.2-1 % drops,suspension 3 drp otic (ears) BID 7 Days Qty: 10 0RF albuterol sulfate [ProAir HFA] 90 mcg/actuation HFA aerosol inhaler 2 puff inhalation QID Qty: 8.5 0RF methocarbamol 500 mg tablet 500 mg PO TID PRN (Reason: muscle spasm) Qty: 14 0RF azithromycin 250 mg tablet See Rx Instructions .ROUTE .COMPLEX Qty: 6 0RF Rx Instructions: take 500 mg today (day 1), then 250 mg for 4 days (days 2-5) prednisone 20 mg tablet 40 mg PO DAILY 5 Days Qty: 10 0RF benzonatate 100 mg capsule 100 mg PO TID PRN (Reason: cough) Qty: 14 0RF erythromycin 5 mg/gram (0.5 %) ointment 1 appl ophthalmic (eye) BID Qty: 3.5 0RF fegqhinqzf-mtvopgmnlvwyi-cbhm [Fioricet] 50-300-40 mg capsule 1 cap PO Q4-6H PRN (Reason: headache) Qty: 14 0RF mupirocin 2 % ointment 1 appl topical TID Qty: 22 0RF ibuprofen 200 mg capsule 400 mg PO Q8H epinephrine [EpiPen] 0.3 mg/0.3 mL auto-injector 0.3 mg IM Q10M PRN Rx Instructions: for 2 doses loratadine 10 mg capsule 10 mg PO DAILY methocarbamol 500 mg tablet 500 mg PO TID Linzess 72 mcg capsule 72 mcg PO QAM Qty: 30 6RF omeprazole 20 mg capsule,delayed release(DR/EC) 20 mg PO DAILY Qty: 30 6RF amlodipine 10 mg tablet 10 mg PO QAM lorazepam 0.5 mg tablet 0.5 mg PO DAILY PRN (Reason: anxiety) fluticasone propionate 50 mcg/actuation spray,suspension 1 spray intranasal QAM cyclobenzaprine 10 mg tablet 10 mg PO TID loratadine 10 mg tablet 10 mg PO QAM PRN (Reason: allergies) Print Language: Urdu
[2024-11-09] MEDS: Amoxicillin 500 MG CAPSULE PO (11:30)
[2024-11-09] MEDS: Ibuprofen 600 MG TABLET PO (11:30)
[2024-11-09 12:36] LABS: Influenza A PCR NEGATIVE (Negative); Influenza B PCR NEGATIVE (Negative); Resp Syncy Virus RNA Qual PCR NEGATIVE (Negative); SARS COV2 PCR INHOUSE NEGATIVE (Negative)
[2024-11-09 13:06] VITALS: BP 131/68; PULSE 93; RESP 18; TEMP 36.7; O2SAT 96
== END 2024-11-09 13:06 | disposition home or self-care (01) ==
PROVIDERS: Registered Nurse Emergency; Emergency Provider Emergency Medicine; PCP Internal Medicine
DX: J02.0 Streptococcal pharyngitis (principal); M54.50 Low back pain, unspecified; Z03.818 Encounter for observation for suspected exposure to other biological agents ruled out
CPT/HCPCS: 0241U; 72100; 87651; 99283

== ENCOUNTER → 2024-11-09 11:16 | Outpatient (BNV) | payer MEDICAID, SELFPAY | PROVIDERS: Emergency Provider Emergency Medicine; PCP Internal Medicine; Visit Provider Radiology Diagnostic Radiology | DX: M54.50 Low back pain, unspecified (principal) | CPT/HCPCS: 72100 ==

== ENCOUNTER 2025-02-04 09:37 | Outpatient (REF) | payer MEDICAID, SELFPAY ==
[2025-02-04 11:46] LABS: Alanine Aminotransferase 32 U/L (0-31); Albumin Level 4.6 g/dL (3.5-5.0); Alkaline Phosphatase 86 U/L (39-117); Anion Gap 10 (12-20); Aspartate Amino Transferase 26 U/L (5-31); Blood Urea Nitrogen 17 mg/dL (9-16); Calcium 9.2 mg/dL (8.4-10.2); Carbon Dioxide 29 mmol/L (22-29); Chloride 104 mmol/L (96-108); Cholesterol 207 mg/dL (<200); Estimated Glomerular Filt Rate > 60; HDL Cholesterol 49 mg/dL (>40); Potassium 4.3 mmol/L (3.3-5.1); Sodium 139 mmol/L (135-145); Total Protein 7.9 g/dL (6.5-8.0); Triglycerides 156 mg/dL (<150)
== END 2025-02-04 09:38 | disposition home or self-care (01) ==
LOC: HO.HHCL 09:37
PROVIDERS: PCP Internal Medicine; Visit Provider Internal Medicine
DX: R35.1 Nocturia (principal); E11.9 Type 2 diabetes mellitus without complications
CPT/HCPCS: 36415; 80053; 80061; 82043; 82570

== ENCOUNTER 2025-02-21 10:46 | Outpatient (REF) | payer MEDICAID, SELFPAY | END 2025-02-21 10:47 | disposition home or self-care (01) | LOC: HO.MAMMO 10:46 | PROVIDERS: PCP Internal Medicine; Visit Provider Internal Medicine | DX: Z12.31 Encounter for screening mammogram for malignant neoplasm of breast (principal) | CPT/HCPCS: 77063; 77067 ==

== ENCOUNTER → 2025-02-21 11:00 | Outpatient (BNV) | payer MEDICAID, SELFPAY | PROVIDERS: PCP Internal Medicine; Visit Provider Radiology Body Imaging | DX: Z12.31 Encounter for screening mammogram for malignant neoplasm of breast (principal) | CPT/HCPCS: 77063; 77067 ==

== ENCOUNTER 2025-04-10 11:44 | Outpatient (REF) | payer MEDICAID, SELFPAY ==
--- OUTSIDE RECORDS SUMMARY | 2025-04-09 10:30 | XMS_ITS | Encounter Summary ---
Author Organization [employer] Address [address] [place] [address] [address] [place] [address] Care Team Providers Care Cant Hooker Name Role Phone Gracie Whitfield MD Primary Care Provide r Encounter Details Date Type Department Care Team (Late st Contact Info) Description 04/09/2025 10:30 AM EDT Telemedicine [facility] MEDICINE [address] [place] [address] Gracie Whitfield MD [address] [place] [address] Primary hypertension (Primary Dx); Type 2 diabetes mellitus with hyperglycemia, without long-term current use of insulin (CMS/HCC); Heartburn Social History Tobacco Use Types Packs/Day Years Used Date Smoking Tobacco: Former Cigarettes Passive Smoke Exposure: Past Smokeless Tobacco: Never Alcohol Use Standard Drinks/Week Comments Never 0 (1 standard drink = 0.6 oz pur e alcohol) Depression Answer Date Recorded Patient Health Questionnaire-9 Score 0 04/09/2025 Patient Health Questionnaire-9 Score 0 04/09/2025 Last PHQ-9: Questionnaire Data Not on file 0 04/09/2025 Housing Stability Answer Date Recorded What is your housing situation today? I do not have housing (Staying with others, in a hotel, in a intermediate, living outside on the street, on a beach, in a car, or in a park 10/25/[address] you li ve. Do you have problems with any of the following? None of the above 10/25/2024 Food Insecurity Answer Date Recorded Within the past 12 months, y ou worried that your food would run out before you got money to buy more: Sometimes True 2024 Within the past 12 months,th e food you bought just didn't last and you didn't have enough money to get more: Sometimes True 12/06/2024 Transportation Answer Date Recorded In the past 12 months, has l ack of transportation kept you from medical appts, meetings, work or from getting things needed for daily living? No 01/16/2024 Utilities Answer Date Recorded In the past 12 months, has t he electric, gas, oil or water company threatened to shut off services in your home? No 01/16/2024 Depression Answer Date Recorded Patient Health Questionnaire-2 Score 0 04/09/2025 Internet Access Answer Date Recorded Internet Access Q1 Yes 01/16/2025 Internet Access Q2 Not on file 01/16/2025 Comments Unknown Sex and Gender Information Value Date Recorded Sex Assigned at Female 05/16/2022 10:14 AM EDT Legal Sex Female 10:14 AM EDT Gender Identity Female 05/16/2022 10:14 AM EDT Sexual Orientation Choose not to disclose 2021 10:14 AM EDT documented as of this encounter Functional Status * Over the past 2 weeks, how often have you been bothered by any of the following problems? Question Answer Date of Assessment Author Patient Health Questionnaire-2 Score 0 03/18 10:15 AM EDT Shaylee Powell MA * Little interest or pleasure in doing things Answer Date of Assessment Author Not at all 04/09/2025 10:15 AM EDT Alfredo Powell MA * Feeling down, depressed, or hopeless Answer Date of Assessment Author Not at all 04/09/2025 10:15 AM EDT Alfredo Powell MA * Trouble falling or staying asleep, or sleeping too much Answer Date of Assessment Author Not at all 04/09/2025 10:15 AM EDT Alfrdeo Powell MA * Feeling tired or having little energy Answer Date of Assessment Author Not at all 04/09/2025 10:15 AM EDT Alfredo Powell MA * Poor appetite or overeating Answer Date of Assessment Author Not at all 04/09/2025 10:15 AM BORIST Alfredo Powell MA * Feeling bad about yourself - or that you are a failure or have let yourself or your family down Answer Date of Assessment Author Not at all 04/09/2025 10:15 AM Alfredo Kyle MA * Trouble concentrating on things, such as reading the newspaper or watching television Answer Date of Assessment Author Not at all 04/09/2025 10:15 AM Alfredo Kyle MA * Moving or speaking so slowly that other people could have noticed? Or the opposite - being so fidgety or restless that you have been moving around a lot more than usual. Answer Date of Assessment Author Not at all 04/09/2025 10:15 AM Alfredo Kyle MA * Thoughts that you would be better off or hurting yourself in some way Answer Date of Assessment Author Not at all 04/09/2025 10:15 AM Alfredo Kyle MA * Patient Health Questionnaire-9 Score Answer Date of Assessment Author 0 04/09/2025 10:15 AM Alfredo Kyle MA * Over the last 2 weeks, how often have you been bothered by any of the following problems? Question Answer Date of Assessment Author Feeling nervous, anxious, or on edge 0 03/18 10:16 AM Shaylee Kyle MA Not being able to stop or co ntrol worrying 0 04/09/2025 10:16 AM Shaylee Kyle MA Worrying too much about diff erent things 0 04/09/2025 10:16 AM Shaylee Kyle MA Trouble relaxing 0 04/09/2025 10:16 AM Shaylee Kyle MA Being so restless that it is hard to sit still 0 04/09/2025 10:16 AM Shaylee Kyle MA Becoming easily annoyed or irritable 0 03/18 10:16 AM Shaylee Kyle MA Feeling afraid as if somethi ng awful might happen 0 04/09/2025 10:16 AM Shaylee Kyle MA ECHO-7 Total Score 0 04/09/2025 10:16 AM Shaylee Kyle MA documented as of this encounter Progress Notes * Gracie Raza MD - 04/09/2025 10:30 AM EDT SUBJECTIVE: Lolis Baker is a 65 y.o. year old female who presents for Follow up . Acute Concerns: Patient tells me she has been worried regarding her diabetes she has been noticing her glucose in the morning has been in the 160s 180s and her glucose after meals has been in the 200s to 260s she would like to start medication for diabetes. She tells me her her blood pressure has been okay and sheis taking medication as prescribed Patient tells me she has been having increased heartburn reports anything that she eats will give her heartburn no matter what she takes famotidine as needed but reports is not helping much, denies blood in the stool or black stools, denies any vomiting Social History Social History Narrative Not on file Problem List[1] Anxiety Chronic low back pain Constipation Diabetes mellitus (CMS/HCC) Dizziness Nausea Effusion of joint of shoulder region Forgetfulness Gastritis Gastroesophageal reflux disease Bilateral hip pain Hyperlipidemia Hypertriglyceridemia Hypoalphalipoproteinemia Increased frequency of urination Mood disorder (CMS/HCC) Pain in lower limb Pain in pelvis Pain in toe Type 2 diabetes mellitus with hyperglycemia (CMS/HCC) Vascular insufficiency Vitamin D deficiency Exposure to HIV History of depression Dyshidrotic eczema Chronic otitis externa of right ear Recurrent acute suppurative otitis media of right ear without spontaneous rupture of tympanic membrane Conductive hearing loss of right ear with unrestricted hearing of left ear Primary hypertension Epiploic appendagitis Abdominal wall hernia Preseptal cellulitis of left eye Migraine without aura and without status migrainosus, not intractable Primary insomnia Chronic hip pain, bilateral Nocturia Moderate persistent asthma Depression Varicose veins of left lower extremity with inflammation Family History[2] Review of Systems Constitutional: Negative. HENT: Negative. Respiratory: Negative. Cardiovascular: Negative. Gastrointestinal: Positive for abdominal distention and abdominal pain. Negative for anal bleeding,blood in stool, constipation, diarrhea, nausea, rectal pain and vomiting. Follow Up: No follow-ups on file. Medications Ordered Prior to Encounter[3] Problem List Items Addressed This Visit Primary hypertension - Primary Stable continue with same medications on low-sodium diet Type 2 diabetes mellitus with hyperglycemia (CMS/HCC) In light that glucose is trending up I decided to start her on Mounjaro 2.5 mg weekly plan is to follow-up with her and if she is tolerating well the medication to go up on the dose, side effects of the medications were reviewed and contraindications Relevant Medications Tirzepatide (Mounjaro) 2.5 MG/0.5ML solution auto-injector Heartburn I advise patient to avoid NSAIDs, spicy and acid food, I advise to eat at the same time every day, I advise to elevate the head of the bed and take medications as prescribe I will check for H. pylori patient will be contacted with results Relevant Orders Helicobacter pylori Antigen, EIA, Stool [1] Patient Active Problem List Diagnosis Anxiety Chronic low back pain Constipation Diabetes mellitus (CMS/HCC) Dizziness Nausea Effusion of joint of shoulder region Forgetfulness Gastritis Gastroesophageal reflux disease Bilateral hip pain Hyperlipidemia Hypertriglyceridemia Hypoalphalipoproteinemia Increased frequency of urination Mood disorder (CMS/HCC) Pain in lower limb Pain in pelvis Pain in toe Type 2 diabetes mellitus with hyperglycemia (CMS/HCC) Vascular insufficiency Vitamin D deficiency Exposure to HIV History of depression Dyshidrotic eczema Chronic otitis externa of right ear Recurrent acute suppurative otitis media of right ear without spontaneous rupture of tympanic membrane Conductive hearing loss of right ear with unrestricted hearing of left ear Primary hypertension Epiploic appendagitis Abdominal wall hernia Preseptal cellulitis of left eye Migraine without aura and without status migrainosus, not intractable Primary insomnia Chronic hip pain, bilateral Nocturia Moderate persistent asthma Depression Varicose veins of left lower extremity with inflammation Trochanteric bursitis, left hip Trochanteric bursitis of right hip Chronic idiopathic constipation Asthma Other hemorrhoids Heartburn [2] No family history on file. [3] Current Outpatient Medications on File Prior to Visit Medication Sig Dispense Refill acetaminophen (Tylenol 8 Hour) 650 MG ER tablet Take 1 tablet (650 mg) by mouth every 8 (eight) hours if needed for mild pain. Do not crush, chew, or split. 60 tablet 1 acetaminophen-codeine (Tylenol w/ Codeine #3) 300-30 MG tablet TAKE 1 TABLET BY MOUTH EVERY 6 HOURSAS NEEDED FOR SEVERE PAIN FOR UP TO 5 DAYS albuterol (2.5 MG/3ML) 0.083% nebulizer solution Take 3 mL (2.5 mg) by nebulization every 6 (six) hours if needed for wheezing or shortness of breath. 75 mL 3 albuterol (Ventolin HFA) 108 (90 Base) MCG/ACT inhaler INHALE 2 PUFFS BY MOUTH EVERY 4 TO 6 HOURS NEEDED FOR WHEEZING 18 g 1 Alcohol Swabs (Alcohol Prep) pads Use as directed amitriptyline (Elavil) 10 MG tablet Take 1 tablet (10 mg) by mouth at bedtime. 30 tablet 3 amLODIPine (Norvasc) 10 MG tablet TAKE 1 TABLET BY MOUTH EVERY DAY IN THE MORNING 90 tablet 1 Asmanex HFA 200 MCG/ACT aerosol INHALE 1 PUFF BY MOUTH TWICE DAILY RINSE MOUTH AFTER USING. 13 g 2 benzonatate (Tessalon Perles) 100 MG capsule Take 1 capsule (100 mg) by mouth if needed in the morning, at noon, and at bedtime for cough for up to 10 days. Do not crush or chew. 30 capsule 0 Blood Glucose Monitoring Suppl (FreeStyle [place] Lite) w/Device kit TEST BLOOD SUGAR DIRECTED 1kit 0 Blood Pressure kit Check BP with sitting and with standing daily Blood Pressure Monitoring (Blood Pressure Cuff) misc 1 each in the morning. 1 each 0 Calcium Carb-Cholecalciferol 600-10 MG-MCG tablet take 1 cap by oral route 3 times daily for bone health cetirizine (ZyrTEC) 10 MG tablet Take 1 tablet (10 mg) by mouth if needed each day for rhinitis. 30tablet 3 cyclobenzaprine (Flexeril) 10 MG tablet TAKE 1 TABLET BY MOUTH THREE TIMES DAILY 30 tablet 3 diclofenac (Voltaren) 75 MG EC tablet Take 1 tablet by mouth 2 times daily. EPINEPHrine (Epipen) 0.3 MG/0.3ML injection syringe Inject 0.3 mL into the shoulder, thigh, or buttocks. Inject 0.3 milliliter by intramuscular route once as needed for anaphylaxis famotidine (Pepcid) 20 MG tablet TAKE 1 TABLET BY MOUTH TWICE A DAY 180 tablet 1 fluticasone (Flonase) 50 MCG/ACT nasal spray Administer 2 sprays into each nostril if needed each day for rhinitis. Shake gently. Before first use, prime pump. After use, clean tip and replace cap. 16 g 3 FreeStyle lancets 1 each by Other route Once per day. TEST BLOOD SUGAR TWICE A DAY 100 each 11 glucose blood (FREESTYLE LITE) test strip TEST BLOOD SUGAR TWICE DAILY 100 each 11 hydrocortisone (Anusol-HC) 2.5 % rectal cream Insert into the rectum 2 times daily. 28 g 1 hydrocortisone 2.5 % cream Apply topically every 12 (twelve) hours. Apply by topical route 2 times every day to the affected area(s) hydrOXYzine HCl (Atarax) 25 MG tablet TAKE 1 TABLET BY MOUTH AT BEDTIME NEEDED FOR ITCHING 30 tablet 1 ibuprofen 400 MG tablet TAKE 1 TABLET BY MOUTH EVERY 6 HOURS NEEDED FOR PAIN 30 tablet 2 lidocaine (Lidoderm) 5 % patch APPLY 1 PATCH TOPICALLY TO SKIN, LEAVE ON FOR 12 HOURS AND OFF FOR 12 HOURS DIRECTED 30 patch 2 linaCLOtide (Linzess) 72 MCG capsule TAKE 1 CAPSULE BY MOUTH EVERY DAY ON AN EMPTY STOMACH AT LEAST30 MINUTES BEFORE BREAKFAST 30 capsule 3 LORazepam (Ativan) 0.5 MG tablet TAKE 1 TABLET BY MOUTH EVERY DAY NEEDED FOR ANXIETY 5 tablet 0 losartan (Cozaar) 25 MG tablet Take 1 tablet (25 mg) by mouth Once per day. 90 tablet 3 meloxicam (Mobic) 15 MG tablet TAKE 1 TABLET BY MOUTH ONCE DAILY NEEDED Misc. Devices (Pulse Oximeter) misc for monitoring oxygen saturation; seek emergent care if oxygen is less than 95 mupirocin (Bactroban) 2 % ointment apply 1 application topically 3 times a day [] Nirmatrelvir&Ritonavir 300/100 (Paxlovid, 300/100,) 20 x 150 MG & 10 x 100MG tablet therapy pack Take 1 Dose by mouth 2 times daily for 5 days. 30 each 0 ondansetron (Zofran) 4 MG tablet Take 1 tablet by mouth every 8 (eight) hours. Take 1 tablet by oral route every 8 hours for nausea Polyethyl Glycol-Propyl Glycol 0.4-0.3 % solution 1-2 drops in each eye as needed for itching, Spacer/Aero-Holding Chambers ([facility]) device Q4h prn SUMAtriptan (Imitrex) 25 MG tablet Take 1 tablet (25 mg) by mouth 1 (one) time if needed for migraine for up to 9 doses. May repeat dose once in 2 hours if no relief. Do not exceed 2 doses in 24 hours. 9 tablet 0 [DISCONTINUED] acetaminophen (Tylenol 8 Hour) 650 MG ER tablet TAKE 2 TABLETS BY MOUTH EVERY 8 HOURS NEEDED FOR MILD PAIN. DO NOT BREAK, CRUSH, DISSOLVE OR CHEW. 60 tablet 1 No current facility-administered medications on file prior to visit. documented in this encounter Miscellaneous Notes * Assessment & Plan Note - Gracie Raza MD - 04/09/2025 1:02 PM EDT Associated Problem(s): Heartburn I advise patient to avoid NSAIDs, spicy and acid food, I advise to eat at the same time every day, I advise to elevate the head of the bed and take medications as prescribe I will check for H. pylori patient will be contacted with results * Assessment & Plan Note - Gracie Raza MD - 04/09/2025 1:02 PM EDT Associated Problem(s): Type 2 diabetes mellitus with hyperglycemia ([facility]) In light that glucose is trending up I decided to start her on Mounjaro 2.5 mg weekly plan is to follow-up with her and if she is tolerating well the medication to go up on the dose, side effects of the medications were reviewed and contraindications * Assessment & Plan Note - Gracie Raza MD - 04/09/2025 1:00 PM EDT Associated Problem(s): Primary hypertension Stable continue with same medications on low-sodium diet documented in this encounter Plan of Treatment Upcoming Encounters Date Type Department Care Team (Late st Contact Info) Description 06/23/2025 9:00 AM EST Office Visit [facility] OPTOMETRY [address] [place], [place] [phone] Monet Johnson, OD [address] [place], [place] [id number] Scheduled Orders Name Type Priority Associated Diagnoses Orde r Schedule Helicobacter pylori Antigen, EIA, Stool Lab Routine Heartburn Expected: 04/09/2025, Expires: 04/09/2026 documented as of this encounter Visit Diagnoses Diagnosis Primary hypertension- Primary Unspecified essential hypertension Type 2 diabetes mellitus with hyperglycemia, without long-term current use of insulin ([facility]) Heartburn documented in this encounter Additional Health Concerns Assessment Noted Time PHQ-9 Depression Total Score: 0 04/09/20 25 10:15 AM EDT documented as of this encounter Care Teams Cant Hooker Relationship Specialty Start Date End Date Gracie Whitfield MD [address] [place] [id number] PCP - General Family Medicine 06/12/18 documented as of this encounter
--- OUTSIDE RECORDS SUMMARY | 2025-04-10 16:36 | XMS_ITS | Encounter Summary ---
Author Organization [employer] Address [address] [facility] 7 [place] [address] Care Team Providers Care Intake Man Name Role Phone Gracie Whitfield MD Primary Care Provide r Encounter Details Date Type Department Care Team (Late st Contact Info) Description 04/26/2023 Abstract [facility] MEDICINE [address] [place] [address] Gracie Whitfield MD [address] [place] [address] Social History Tobacco Use Types Packs/Day Years Used Date Smoking Tobacco: Former Cigarettes Smokeless Tobacco: Never Alcohol Use Standard Drinks/Week Comments Never 0 (1 standard drink = 0.6 oz pur e alcohol) Housing Stability Answer Date Recorded What is your housing situation today? I have juany raman 04/22/[address] you li ve. Do you have problems with any of the following? None of the above 04/22/2023 Food Insecurity Answer Date Recorded Within the past 12 months, y ou worried that your food would run out before you got money to buy more: Never True 04/22/2023 Within the past 12 months,th e food you bought just didn't last and you didn't have enough money to get more: Never True 01/2023 Transportation Answer Date Recorded In the past 12 months, has l ack of transportation kept you from medical appts, meetings, work or from getting things needed for daily living? No 04/22/2023 Utilities Answer Date Recorded In the past 12 months, has t he electric, gas, oil or water company threatened to shut off services in your home? No 04/22/2023 Comments Unknown Sex and Gender Information Value Date Recorded Sex Assigned at Female 05/16/2022 10:14 AM EDT Legal Sex Female 10:14 AM EDT Gender Identity Female 05/16/2022 10:14 AM EDT Sexual Orientation Choose not to disclose 2021 10:14 AM EDT documented as of this encounter Plan of Treatment Upcoming Encounters Date Type Department Care Team (Late st Contact Info) Description 06/23/2025 9:00 AM EST Office Visit [facility] OPT[facility]ETRY [address] [place] [address] AlexMonet haywood, OD [address] [place] [address] documented as of this encounter Procedures Procedure Name Priority Date/Time Associated Diagnosis Comments COLONOSCOPY Routine 02/05/2016 documented in this encounter Results * Colonoscopy (02/05/2016) Colonoscopy Normal Normal Narrative Larissa Barajas - 02/05/2016 Recommended 10 year follow up us Historical Provider HEALTH MAINTENANCE Edited Result - Final documented in this encounter Visit Diagnoses Not on filedocumented in this encounter Care Teams Intake Man Relationship Specialty Start Date End Date Gracie Whitfield MD [address] [place] [address] PCP - General Family Medicine 06/12/18 documented as of this encounter
--- OUTSIDE RECORDS SUMMARY | 2025-04-10 16:36 | XMS_ITS | Encounter Summary ---
Author Organization [employer] Address [address] [facility] [address] [place] [address] Care Team Providers Care Broadband Installer Name Role Phone Gracie Whitfield MD Primary Care Provide r Reason for Visit * Reason Comments Med Refill Encounter Details Date Type Department Care Team ([facility] Contact Info) Description 06/29/2024 Refill [facility] MED[facility]INE [address] [place] [address] Gracie Whitfield MD [address] [place] [address] Social History Tobacco Use Types Packs/Day Years Used Date Smoking Tobacco: Former Cigarettes Passive Smoke Exposure: Past Smokeless Tobacco: Never Alcohol Use Standard Drinks/Week Comments Never 0 (1 standard drink = 0.6 oz pur e alcohol) Depression Answer Date Recorded Patient Health Questionnaire-9 Score 0 01/16/2024 Patient Health Questionnaire-9 Score 0 01/16/2024 Last PHQ-9: Questionnaire Data Not on file 0 01/16/2024 Housing Stability Answer Date Recorded What is your housing situation today? I have juany raman 01/16/[address] you li ve. Do you have problems with any of the following? None of the above 01/16/2024 Food Insecurity Answer Date Recorded Within the past 12 months, y ou worried that your food would run out before you got money to buy more: Sometimes True 2023 Within the past 12 months,th e food you bought just didn't last and you didn't have enough money to get more: Sometimes True 02/13/2024 Transportation Answer Date Recorded In the past [...] Date Recorded Patient Health Questionnaire-2 Score 0 01/16/2024 Internet Access Answer Date Recorded Internet Access Q1 Yes 03/18/2024 Internet Access Q2 I do not want or need it 08/2023 Comments Unknown Sex and Gender Information Value [...] Description 06/23/2025 9:00 AM EST Office Visit [facility] OPTOMETRY [address] [place], [place] [phone] Alex, Monet, OD [address] [place] [address] documented as of this encounter Visit Diagnoses Not on filedocumented in this encounter Additional Health Concerns Assessment Noted Time PHQ-9 Depression Total Score: 0 01/16/20 24 3:13 PM EDT documented as of this encounter Care Teams Broadband Installer Relationship Specialty Start Date End Date Gracie Whitfield MD [address] [place] [address] PCP - General Family Medicine 06/12/18 documented as of this encounter
--- OUTSIDE RECORDS SUMMARY | 2025-04-10 16:36 | XMS_ITS | Encounter Summary ---
Author Organization [employer] Address [address] [place] [address] [place] [address] Care Team Providers Care Dyeing Machine Feeder Name Role Phone Gracie Whitfield MD Primary Care Provide r Reason for Visit * Reason Comments Med Refill Encounter Details Date Type Department Care Team ([facility] st Contact Info) Description 2025 Refill [facility] MED[facility]INE [address] [place] [address] Gracie Whitfield MD [address] [place] [address] Moderate persistent asthma, unspecified whether complicated Social History Tobacco Use Types Packs/Day Years Used Date Smoking Tobacco: Former Cigarettes Passive Smoke Exposure: Past Smokeless Tobacco: Never Alcohol Use Standard Drinks/Week Comments Never 0 (1 standard drink = 0.6 oz pur e alcohol) Depression Answer Date Recorded Patient Health Questionnaire-9 Score 0 07/18/2024 Patient Health Questionnaire-9 Score 0 07/18/2024 Last PHQ-9: Questionnaire Data Not on file 0 07/18/2024 Housing Stability Answer Date Recorded What is your housing situation today? I do not have housing (Staying with others, in a hotel, in a longterm, living outside on the street, on a [...] Date Recorded Patient Health Questionnaire-2 Score 0 07/18/2024 Internet Access Answer Date Recorded Internet Access [...] Description 06/23/2025 9:00 AM EST Office Visit [facility] OPTOMETRY [address] [place], [place] [phone] Monet Johnson, OD [address] [place] [address] documented as of this encounter Visit Diagnoses Diagnosis Moderate persistent asthma, unspecified whether complicated documented in this encounter Additional Health Concerns Assessment Noted Time PHQ-9 Depression Total Score: 0 07/18/19 25 11:04 AM EST documented as of this encounter Care Teams Dyeing Machine Feeder Relationship Specialty Start Date End Date Gracie Whitfield MD [address] [place] [address] PCP - General Family Medicine 06/12/18 documented as of this encounter
--- OUTSIDE RECORDS SUMMARY | 2025-04-10 16:36 | XMS_ITS | Encounter Summary ---
Author Organization [email or web address] Address [address] [place] [address] [place] [address] Care Team Providers Care Technical Project Manager Name Role Phone Gracie Whitfield MD Primary Care Provide r Reason for Visit * Reason Onset Date Comments inactive script 08/08/2022 Encounter Details Date Type Department Care Team (Late Contact Info) Description 08/08/2022 Telephone [facility] MEDICINE [address] [place] [address] Gracie Whitfield MD [address] [place] [address] inactive script Social History Tobacco Use Types Packs/Day Years Used Date Smoking Tobacco: Never Smokeless Tobacco: Never Alcohol Use Standard Drinks/Week Comments Never 0 (1 standard drink = 0.6 oz pur e alcohol) Comments Unknown Sex and Gender Information Value Date Recorded Sex Assigned at Female 05/16/2022 10:14 AM EDT Legal Sex Female 10:14 AM EDT Gender Identity Female 05/16/2022 10:14 AM EDT Sexual Orientation Choose not to disclose 2021 10:14 AM EDT documented as of this encounter Miscellaneous Notes * Telephone Encounter - Preeti Garduno - 08/08/2022 9:59 AM EST TC from pt requesting a inactive script Ibuprofen 400mg. Pt stated medication Diclofenac not working. PCP Dr. Salazar documented in this encounter Plan of Treatment Upcoming Encounters Date Type Department Care Team (Late Contact Info) Description 06/23/2025 9:00 AM EST Office Visit [facility] [address] [place] [address] Monet Johnson, OD [address] [place] [address] documented as of this encounter Visit Diagnoses Not on filedocumented in this encounter Care Teams Technical Project Manager Relationship Specialty Start Date End Date Gracie Whitfield MD [address] [place] [address] PCP - General Family Medicine 06/12/18 documented as of this encounter
--- OUTSIDE RECORDS SUMMARY | 2025-04-10 16:36 | XMS_ITS | Encounter Summary ---
Author Organization [employer] Address [address] [place] [address] [place] [address] Care Team Providers Care Phlebotomy Instructor Name Role Phone Gracie Whitfield MD Primary Care Provide r Reason for Visit * Reason Onset Date Comments Med Refill 09/13/2023 Encounter Details Date Type Department Care Team ([facility] st Contact Info) Description 09/13/2023 Telephone [facility] MEDICINE [address] [place] [address] Gracie Whitfield MD [address] [place] [address] Med Refill Social History Tobacco Use Types Packs/Day Years Used Date Smoking Tobacco: Former Cigarettes Smokeless Tobacco: Never Alcohol Use Standard Drinks/Week Comments Never 0 (1 standard drink = 0.6 oz pur e alcohol) Housing Stability Answer Date Recorded What is your housing situation today? I have juany raman 05/12/[address] you li ve. Do you have problems with any of the following? None of the above 05/12/2023 Food Insecurity Answer Date Recorded Within the past 12 months, y ou worried that your food would run out before you got money to buy more: Never True 05/12/2023 Within the past 12 months,th e food you bought just didn't last and you didn't have enough money to get more: Never True Transportation Answer Date Recorded In the past 12 months, has l ack of transportation kept you from medical appts, meetings, work or from getting things needed for daily living? No 05/12/2023 Utilities Answer Date Recorded In the past 12 months, has t he electric, gas, oil or water company threatened to shut off services in your home? No 05/12/2023 Comments Unknown Sex and Gender Information Value Date Recorded Sex Assigned at Female 05/16/2022 10:14 AM EDT Legal Sex Female 10:14 AM EDT Gender Identity Female 05/16/2022 10:14 AM EDT Sexual Orientation Choose not to disclose 2021 10:14 AM EDT documented as of this encounter Miscellaneous Notes * Telephone Encounter - Yarelis Cameron LPN - 09/13/2023 1:09 PM EST Medication pended to PCP. * Telephone Encounter - Carolyne Maria - 09/13/2023 12:13 PM EST TC from pt requesting medication refill. Medications needing refill : Ibuprofen 400 mg To be sent to: [facility] documented in this encounter Plan of Treatment Upcoming Encounters Date Type Department Care Team (Late st Contact Info) Description 06/23/2025 9:00 AM EST Office Visit [facility] OPTOMETRY [address] [place] [address] Alex, Monet, OD [address] [place] [address] documented as of this encounter Visit Diagnoses Not on filedocumented in this encounter Care Teams Phlebotomy Instructor Relationship Specialty Start Date End Date Gracie Whitfield MD [address] [place] [address] PCP - General Family Medicine 06/12/18 documented as of this encounter
--- OUTSIDE RECORDS SUMMARY | 2025-04-10 16:36 | XMS_ITS | Encounter Summary ---
Author Organization [employer] Address [address] [place] [address] Care Team Providers Care Product Responsibility Liaison Name Role Phone Gracie Whitfield MD Primary Care Provide r Reason for Visit * Reason Onset Date Comments Durable Medical Equipment 12/12/2024 Encounter Details Date Type Department Care Team ([facility] st Contact Info) Description 12/12/2024 Telephone [facility] MEDICINE [address] [place] [address] Gracie Whitfield MD [address] [place] [address] Durable Medical Equipment Social History Tobacco Use Types Packs/Day Years [...] with others, in a hotel, in a custodial, living outside on the street, on a [...] encounter Miscellaneous Notes * Telephone Encounter - Johnnie Melgar - 12/12/2024 10:30 AM EDT Tc from pt stating she has lost her Blood Pressure kit and is now requesting a new script. If any questions please contact pt at [phone]. (Cook Islander Speaker) documented in this encounter Plan of Treatment Upcoming Encounters Date Type Department Care Team (Late st Contact Info) Description 06/23/2025 9:00 AM EST Office Visit [facility] OPTOMETRY [address] [place] [address] Alex, Monet, OD [address] [place] [address] documented as of this encounter Visit Diagnoses Not on filedocumented in this encounter Additional Health Concerns Assessment Noted Time PHQ-9 Depression Total Score: 0 07/18/19 25 11:04 AM EST documented as of this encounter Care Teams Product Responsibility Liaison Relationship Specialty Start Date End Date Gracie Whitfield MD [address] [place] [address] PCP - General Family Medicine 06/12/18 documented as of this encounter
--- OUTSIDE RECORDS SUMMARY | 2025-04-10 16:36 | XMS_ITS | Encounter Summary ---
Author Organization [employer] Address [address] [place] [address] [address] [place] [address] Care Team Providers Care Stone Repairer Name Role Phone Graice Whitfield MD Primary Care Provide r Encounter Details Date Type Department Care Team (Latest Contact Info) Description 04/09/2025 Travel Social History Tobacco Use Types Packs/Day Years [...] with others, in a hotel, in a fdc, living outside on the street, on a [...] Not at all 04/09/2025 10:15 AM Alfredo Klye MA * Feeling down, depressed, or hopeless Answer Date of Assessment Author Not at all 04/09/2025 10:15 AM Alfredo Kyle [place] * Trouble falling or staying asleep, or sleeping too much Answer Date of Assessment Author Not at all 04/09/2025 10:15 AM Alfredo Kyle MA * Feeling tired or having little energy Answer Date of Assessment Author Not at all 04/09/2025 10:15 AM Alfredo Kyle [place] * Poor appetite or overeating Answer Date of Assessment Author Not at all 04/09/2025 10:15 AM Alfredo Kyle MA * Feeling bad about yourself - [...] of Assessment Author 0 04/09/2025 10:15 AM EDT Alfredo Powell MA * Over the last 2 weeks, how often have you been bothered by any of the following problems? Question Answer Date of Assessment Author Feeling nervous, anxious, or on edge 0 03/18 10:16 AM EDT Shaylee Powell MA Not being able to stop or co ntrol worrying 0 04/09/2025 10:16 AM Shaylee Kyle MA Worrying too much about diff erent things 0 04/09/2025 10:16 AM EDT Shaylee Powell MA Trouble relaxing 0 04/09/2025 10:16 AM [...] Kyle MA documented as of this encounter Plan of Treatment Upcoming Encounters Date Type Department Care Team (Late st Contact Info) Description 06/23/2025 9:00 AM EST Office Visit [facility] OPTOMETRY [address] [place] [address] Monet Johnson, OD [address] [place] [address] documented as of this encounter Visit Diagnoses Not on filedocumented in this encounter Additional Health Concerns Assessment Noted Time PHQ-9 Depression Total Score: 0 04/09/20 25 10:15 AM EDT documented as of this encounter Care Teams Stone Repairer Relationship Specialty Start Date End Date Gracie Whitfield MD [address] [place] [address] PCP - General Family Medicine 06/12/18 documented as of this encounter
--- OUTSIDE RECORDS SUMMARY | 2025-04-10 16:36 | XMS_ITS | Encounter Summary ---
Author Organization [employer] Address [address] [place] [address] Care Team Providers Care Slate Worker Name Role Phone Gracie Whitfield MD Primary Care Provide r Reason for Visit * Reason Onset Date Comments Nurse Triage 10/09/2024 Encounter Details Date Type Department Care Team ([facility] st Contact Info) Description 10/09/2024 Telephone [facility] MEDICINE [address] [place] [address] Gracie Whitfield MD [address] [place] [address] Nurse Triage Social History Tobacco Use Types Packs/Day Years [...] encounter Miscellaneous Notes * Telephone Encounter - Naida Lugo RN - 10/10/2024 10:48 AM EDT Triage call [place] [facility] [id number], [place]. Pt reports dry cough since last May when flu shot was given. Pt reports drinking adequate liquids and is encouraged to continue and add warm drinks such as decaf tea or broth. Pt is advised to use cough drops, hard candies for moisture. Pt agrees with home care advice. Pt reports using albuterol nebulizer daily and using albuterol inhaler every evening . This is effective to help with some occasional wheezing and the cough. Pt is also taking lisinopril for HTN. ASK apt with Dr. Wynn 10/15/24 @ 5395Am. Pt agrees with disposition. If cough and wheezing increases Pt is advised to seek evaluation at ED and Pt agrees. Insurance is verified as active prior to booking. Protocol Used: Cough (Adult) Protocol-Based Disposition: See in Office or Video Visit within 3 Days Positive Triage Question: * Cough has been present for > 3 weeks * All higher-acuity triage questions were negative Care Advice Discussed: * Reassurance and Education - Cough * Cough Medicines * Prevent Dehydration * Reasons To Call Back - Difficulty breathing - Cough lasts more than 3 weeks - Fever lasts more than 3 days - You become worse * Telephone Encounter - Rik Trejo - 10/10/2024 9:26 AM EDT Tc from pt returning call Regarding prior message. Contact pt at [phone] * Telephone Encounter - Norberto Watson - 10/09/2024 2:51 PM EDT Tc from pt returning call in regards message prior. * Telephone Encounter - Norberto Watson - 10/09/2024 1:14 PM EDT Symptoms: Cough, Sleeping Difficulty Outcome: Schedule an appointment to be seen within 24 hours Reason: Caller denied all higher acuity questions The caller accepted this outcome. documented in this encounter Plan of Treatment Upcoming Encounters Date Type Department Care Team (Late st Contact Info) Description 06/23/2025 9:00 AM EST Office Visit [facility] OPTOMETRY [address] [place] [address] Monet Johnson, OD [address] [place] [address] documented as of this encounter Visit Diagnoses Not on filedocumented in this encounter Additional Health Concerns Assessment Noted Time PHQ-9 Depression Total Score: 0 07/18/19 25 11:04 AM EST documented as of this encounter Care Teams Slate Worker Relationship Specialty Start Date End Date Gracie Whitfield MD [address] [place] [address] PCP - General Family Medicine 06/12/18 documented as of this encounter
--- OUTSIDE RECORDS SUMMARY | 2025-04-10 16:36 | XMS_ITS | Encounter Summary ---
Author Organization [employer] Address [address] [place] [address] [place] [address] Care Team Providers Care Medical Writer Name Role Phone Gracie Whitfield MD Primary Care Provide r Reason for Visit * Reason Onset Date Comments returning call 07/01/2022 Encounter Details Date Type Department Care Team ([facility] st Contact Info) Description 07/01/2022 Telephone [facility] MEDICINE [address] [place] [address] Gracie Whitfield MD [address] [place] [address] returning call Social History Tobacco Use Types Packs/Day Years [...] not to disclose 2021 10:14 AM EDT COVID-19 Exposure Response Date Recorded In the last 10 days, have yo u been in contact with someone who was confirmed or suspected to have Coronavirus/COVID-19? No / Unsure 06/29/2022 9:07 AM EST documented as of this encounter Miscellaneous Notes * Telephone Encounter - Deshaun Hutton - 07/01/2022 2:27 PM EST Tc from pt returning call Please contact pt at [phone] speaks british documented in this encounter Plan of Treatment Upcoming Encounters Date Type Department Care Team (Late st Contact Info) Description 06/23/2025 9:00 AM EST Office Visit [facility] OPTOM[facility] [address] [place] [address] Monet Johnson, OD [address] [place], [place] [id number] documented as of this encounter Visit Diagnoses Not on filedocumented in this encounter Care Teams Medical Writer Relationship Specialty Start Date End Date Gracie Whitfield MD [address] [place], [place] [phone] PCP - General Family Medicine 06/12/18 documented as of this encounter
--- OUTSIDE RECORDS SUMMARY | 2025-04-10 16:36 | XMS_ITS | Encounter Summary ---
Author Organization [employer] Address [address] [place] [address] Care Team Providers Care Cream Separator Operator Name Role Phone Gracie Whitfield MD Primary Care Provide r Reason for Visit * Reason Onset Date Comments chart prep 04/08/2025 Encounter Details Date Type Department Care Team ([facility] st Contact Info) Description 04/08/2025 Telephone [facility] MEDICINE [address] [place] [address] Gracie Whitfield MD [address] [place] [address] chart prep Social History Tobacco Use Types Packs/Day Years [...] with others, in a hotel, in a skilled nursing, living outside on the street, on a [...] encounter Miscellaneous Notes * Telephone Encounter - Gisselle Crenshaw MA - 04/08/2025 2:43 PM EDT Chart Prep Labs: done Images: done Referrals: no show Vaccines due: Covid, Flu, PCV20, Hep B, RSV, and Zoster Screenings: foot exam Overdue care gaps: PHQ-9 and ECHO-7 documented in this encounter Plan of Treatment Upcoming Encounters Date Type Department Care Team (Late st Contact Info) Description 06/23/2025 9:00 AM EST Office Visit [facility] OPTOM[facility] [address] [place] [address] Alex, Monet, OD [address] [place] [address] documented as of this encounter Visit Diagnoses Not on filedocumented in this encounter Additional Health Concerns Assessment Noted Time PHQ-9 Depression Total Score: 0 07/18/19 25 11:04 AM EST documented as of this encounter Care Teams Cream Separator Operator Relationship Specialty Start Date End Date Gracie Whitfield MD [address] [place] [address] PCP - General Family Medicine 06/12/18 documented as of this encounter
--- OUTSIDE RECORDS SUMMARY | 2025-04-10 16:36 | XMS_ITS | Clinical Summary ---
Author Organization [employer] Address [address] [place] [address] [address] [place] [address] Care Team Providers Care Frameman Name Role Phone Gracie Whitfield MD Primary Care Provide r Allergies No known active allergies Medications EPINEPHrine (Epipen) 0.3 MG/0.3ML injection syringe Inject 0.3 mL into the shoulder, thigh, or buttocks. Inject 0.3 milliliter by intramuscular route once as needed for anaphylaxis 015 Active Misc. Devices (Pulse Oximeter) misc for monitoring oxygen saturation; seek emergent care if oxygen is less than 95 022 Active ondansetron (Zofran) 4 MG tablet Take 1 tablet by mouth every 8 (eight) hours. Take 1 tablet by oral route every 8 hours for nausea 020 Active hydrocortisone 2.5 % cream Apply topically every 12 (twelve) hours. Apply by topical route 2 times every day to the affected area(s) 018 Active Polyethyl Glycol-Propyl Glycol 0.4-0.3 % solution 1-2 drops in each eye as needed for itching, 018 Active Calcium Carb-Cholecalci ferol 600-10 MG-MCG tablet take 1 cap by oral route 3 times daily for bone health 015 Active Spacer/Aero-Hol ding Chambers (OptiChamber Mindi) device Q4h prn Acti ve Blood Pressure kit Check BP with sitting and with standing daily Active Alcohol Swabs (Alcohol Prep) pads Use as directed Acti ve meloxicam (Mobic) 15 MG tablet TAKE 1 TABLET BY MOUTH ONCE DAILY NEEDED 023 Active lidocaine (Lidoderm) 5 % patch APPLY 1 PATCH TOPICALLY TO SKIN, LEAVE ON FOR 12 HOURS AND OFF FOR 12 HOURS DIRECTED 30 patch 2 Active amitriptyline (Elavil) 10 MG tabletIndicatio ns:Migraine without aura and without status migrainosus, not intractable Take 1 tablet (10 mg) by mouth at bedtime. 30 tablet 3 Active SUMAtriptan (Imitrex) 25 MG tabletIndicatio ns:Migraine without aura and without status migrainosus, not intractable Take 1 tablet (25 mg) by mouth 1 (one) time if needed for migraine for up to 9 doses. May repeat dose once in 2 hours if no relief. Do not exceed 2 doses in 24 hours. 9 tablet Active glucose blood (FREESTYLE LITE) test stripIndication s:Type 2 diabetes mellitus without complication, without long-term current use of insulin (CMS/HCC) TEST BLOOD SUGAR TWICE DAILY 100 each 11 Active FreeStyle lancetsIndicati ons:Type 2 diabetes mellitus without complication, without long-term current use of insulin (CMS/HCC) 1 each by Other route Once per day. TEST BLOOD SUGAR TWICE A DAY 100 each 11 024 2024 Active albuterol (2.5 MG/3ML) 0.083% nebulizer solution Take 3 mL (2.5 mg) by nebulization every 6 (six) hours if needed for wheezing or shortness of breath. 75 mL 3 024 2024 Active diclofenac (Voltaren) 75 MG EC tablet Take 1 tablet by mouth 2 times daily. Active mupirocin (Bactroban) 2 % ointment apply 1 application topically 3 times a day Active acetaminophen-c odeine (Tylenol w/ Codeine #3) 300-30 MG tablet TAKE 1 TABLET BY MOUTH EVERY 6 HOURS NEEDED FOR SEVERE PAIN FOR UP TO 5 DAYS Active losartan (Cozaar) 25 MG tablet Take 1 tablet (25 mg) by mouth Once per day. 90 tablet 3 025 2025 Active linaCLOtide (Linzess) 72 MCG capsuleIndicati ons:Constipatio n, unspecified constipation type TAKE 1 CAPSULE BY MOUTH EVERY DAY ON AN EMPTY STOMACH AT LEAST 30 MINUTES BEFORE BREAKFAST 30 capsule 3 025 Active amLODIPine (Norvasc) 10 MG tabletIndicatio ns:Primary hypertension TAKE 1 TABLET BY MOUTH EVERY DAY IN THE MORNING 90 tablet 1 025 Active famotidine (Pepcid) 20 MG tabletIndicatio ns:Gastroesopha geal reflux disease, unspecified whether esophagitis present TAKE 1 TABLET BY MOUTH TWICE A DAY 180 tablet 1 025 Active Blood Pressure Monitoring (Blood Pressure Cuff) miscIndications :Primary hypertension 1 each in the morning. 1 each 025 Active Blood Glucose Monitoring Suppl ([employer] Lite) w/Device kitIndications: Type 2 diabetes mellitus without complication, without long-term current use of insulin ([facility]) TEST BLOOD SUGAR DIRECTED 1 kit 025 Active LORazepam (Ativan) 0.5 MG tabletIndicatio ns:Anxiety TAKE 1 TABLET BY MOUTH EVERY DAY NEEDED FOR ANXIETY 5 tablet 025 Active albuterol (Ventolin HFA) 108 (90 Base) MCG/ACT inhalerIndicati ons:Moderate persistent asthma, unspecified whether complicated INHALE 2 PUFFS BY MOUTH EVERY 4 TO 6 HOURS NEEDED FOR WHEEZING 18 g 1 025 Active ibuprofen 400 MG tabletIndicatio ns:Left foot pain TAKE 1 TABLET BY MOUTH EVERY 6 HOURS NEEDED FOR PAIN 30 tablet 2 025 Active hydrOXYzine HCl (Atarax) 25 MG tabletIndicatio ns:Primary insomnia TAKE 1 TABLET BY MOUTH AT BEDTIME NEEDED FOR ITCHING 30 tablet 1 025 Active Asmanex HFA 200 MCG/ACT aerosolIndicati ons:Moderate persistent asthma, unspecified whether complicated INHALE 1 PUFF BY MOUTH TWICE DAILY RINSE MOUTH AFTER USING. 13 g 2 025 Active cyclobenzaprine (Flexeril) 10 MG tabletIndicatio ns:Bilateral hip pain TAKE 1 TABLET BY MOUTH THREE TIMES DAILY 30 tablet 3 025 Active hydrocortisone (Anusol-HC) 2.5 % rectal creamIndication s:Other hemorrhoids Insert into the rectum 2 times daily. 28 g 1 Active cetirizine (ZyrTEC) 10 MG tablet Take 1 tablet (10 mg) by mouth if needed each day for rhinitis. 30 tablet 3 025 2025 Active fluticasone (Flonase) 50 MCG/ACT nasal spray Administer 2 sprays into each nostril if needed each day for rhinitis. Shake gently. Before first use, prime pump. After use, clean tip and replace cap. 16 g 3 025 2025 Active benzonatate (Tessalon Perles) 100 MG capsule Take 1 capsule (100 mg) by mouth if needed in the morning, at noon, and at bedtime for cough for up to 10 days. Do not crush or chew. 30 capsule 025 2024 Active acetaminophen (Tylenol 8 Hour) 650 MG ER tabletIndicatio ns:Type 2 diabetes mellitus without complication, without long-term current use of insulin ([facility]) Take 1 tablet (650 mg) by mouth every 8 (eight) hours if needed for mild pain. Do not crush, chew, or split. 60 tablet 1 Active Tirzepatide (Mounjaro) 2.5 MG/0.5ML solution auto-injectorIn dications:Type 2 diabetes mellitus with hyperglycemia, without long-term current use of insulin ([facility]) Inject 2.5 mg under the skin 1 (one) time per week. 2 mL 2 025 Active acetaminophen (Tylenol 8 Hour) 650 MG ER tabletIndicatio ns:Type 2 diabetes mellitus without complication, without long-term current use of insulin ([facility]) Take 2 tablets (1,300 mg) by mouth every 8 (eight) hours if needed for mild pain for up to 20 days. Do not crush, chew, or split. 60 tablet 1 025 2024 Discontinued acetaminophen (Tylenol 8 Hour) 650 MG ER tabletIndicatio ns:Type 2 diabetes mellitus without complication, without long-term current use of insulin (CMS/[facility]) TAKE 2 TABLETS BY MOUTH EVERY 8 HOURS NEEDED FOR MILD PAIN. DO NOT BREAK, CRUSH, DISSOLVE OR CHEW. 60 tablet 1 025 2024 Discontinued(R eorder (will not trigger notification to Pharmacy)) Nirmatrelvir&Ri tonavir 300/100 (Paxlovid, 300/100,) 20 x 150 MG & 10 x 100MG tablet therapy pack Take 1 Dose by mouth 2 times daily for 5 days. 30 each 025 2024 Active Problems Problem Noted Date Diagnosed Date Heartburn 04/09/2025 Assessment & Plan (04/09/2025 1:02 PM EDT): I advise patient to avoid NSAIDs, spicy and acid food, I advise to eat at the same time every day, I advise to elevate the head of the bed and take medications as prescribe I will check for H. pylori patient will be contacted with results Other hemorrhoids 02/04/2025 Depression 10/15/2024 Varicose veins of left lower extremity with infl ammation 10/15/2024 Chronic idiopathic constipation 10/15/2024 Asthma 10/15/2024 Moderate persistent asthma 07/18/2024 Assessment & Plan (07/18/2024 3:53 PM EST): Patient educated to avoid triggers When she feels better she will start asmanex BID Cough syrup prescribed Primary insomnia 05/07/2024 Chronic hip pain, bilateral 05/07/2024 Assessment & Plan (02/04/2025 9:51 AM EDT): I will prescribe for patient acetaminophen 1300mg Q 8hrs if needed Assessment & Plan (05/07/2024 4:08 PM EDT): Short course of tylenol 3 Nocturia 05/07/2024 Assessment & Plan (05/07/2024 4:09 PM EDT): Avoid coaffein Avoid liquids late at night UA RTC 4 weeks Migraine without aura and wi thout status migrainosus, not intractable 02/08/2024 Assessment & Plan (04/18/2024 1:10 PM EDT): I advise to avoid migraine triggers like red wine, chocolate, cheese, strong perfumes C/w amitriptyline and sumatriptan PRN Assessment & Plan (03/07/2024 2:36 PM EDT): I advise to avoid migraine triggers like red wine, chocolate, cheese, strong perfumes Assessment & Plan (02/08/2024 11:37 AM EDT): I advise to avoid migraine triggers like red wine, chocolate, cheese, strong perfumes Trochanteric bursitis, left hip 11/15/2023 Trochanteric bursitis of right hip 11/15/2023 Preseptal cellulitis of left eye 09/09/2023 Assessment & Plan (09/09/2023 8:21 PM EST): Pt with findings of preseptal cellulitis nor concerning symptoms of physical exam findings for orbital cellulitis -px cefuroxime 500 mg orally twice daily for 7 days -alarm signs and symptoms discussed -to RTC if not improving in next 2 to 3 days or to go to ED if worsening symptoms -has apt w PCP 09/27/2023 Epiploic appendagitis 06/28/2023 Assessment & Plan (06/28/2023 4:57 PM EST): CT of the abdomen does reveal small hernia/epiploc appendagitis on RLQ, pain continuous I will try with acetaminophen 3 and refer patient to surgery Abdominal wall hernia 06/28/2023 Primary hypertension 02/02/2023 Assessment & Plan (04/09/2025 1:00 PM EDT): Stable continue with same medications on low-sodium diet Assessment & Plan (11/05/2024 5:03 PM EDT): I advised: - Aerobic exercise to reduce BP. Initial goal of 30 min walk 3-5x/week. Increase as tolerated. - low-sodium diet (goal: <2g/day) and heart healthy diet such as DASH to reduce BP and prevent ASCVD. - Home BP monitoring 1-2 x day with goal of <140/90. - Seek immediate medical attention for chest pain, palpitations, SOB, syncope, or sudden changes in mental status. - Do not change or discontinue current prescriptions without first consulting health care provider Assessment & Plan (10/15/2024 2:25 PM EDT): I advised: - Aerobic exercise to reduce BP. Initial goal of 30 min walk 3-5x/week. Increase as tolerated. - low-sodium diet (goal: <2g/day) and heart healthy diet such as DASH to reduce BP and prevent ASCVD. - Home BP monitoring 1-2 x day with goal of <140/90. - Seek immediate medical attention for chest pain, palpitations, SOB, syncope, or sudden changes in mental status. - Do not change or discontinue current prescriptions without first consulting health care provider Assessment & Plan (07/18/2024 3:55 PM EST): I advised: - Aerobic exercise to reduce BP. Initial goal of 30 min walk 3-5x/week. Increase as tolerated. - low-sodium diet (goal: <2g/day) and heart healthy diet such as DASH to reduce BP and prevent ASCVD. - Home BP monitoring 1-2 x day with goal of <140/90. - Seek immediate medical attention for chest pain, palpitations, SOB, syncope, or sudden changes in mental status. - Do not change or discontinue current prescriptions without first consulting health care provider Assessment & Plan (05/07/2024 4:08 PM EDT): I advise low Na diet and weight reduction Today I added lisinopril 5mg daily , c/w amlodipine 10mg daily RTC 4 weeks Assessment & Plan (01/17/2024 5:30 PM EDT): - Aerobic exercise to reduce BP. Initial goal of 30 min walk 3-5x/week. Increase as tolerated. - low-sodium diet (goal: <2g/day) and heart healthy diet such as DASH to reduce BP and prevent ASCVD. - Home BP monitoring 1-2 x day with goal of <140/90. - Seek immediate medical attention for chest pain, palpitations, SOB, syncope, or sudden changes in mental status. - Do not change or discontinue current prescriptions without first consulting health care provider Assessment & Plan (10/17/2023 3:41 PM EDT): - Aerobic exercise to reduce BP. Initial goal of 30 min walk 3-5x/week. Increase as tolerated. - low-sodium diet (goal: <2g/day) and heart healthy diet such as DASH to reduce BP and prevent ASCVD. - Home BP monitoring 1-2 x day with goal of <140/90. - Seek immediate medical attention for chest pain, palpitations, SOB, syncope, or sudden changes in mental status. - Do not change or discontinue current prescriptions without first consulting health care provider Assessment & Plan (02/02/2023 11:07 AM EDT): - Aerobic exercise to reduce BP. Initial goal of 30 min walk 3-5x/week. Increase as tolerated. - low-sodium diet (goal: <2g/day) and heart healthy diet such as DASH to reduce BP and prevent ASCVD. - Home BP monitoring 1-2 x day with goal of <140/90. - Seek immediate medical attention for chest pain, palpitations, SOB, syncope, or sudden changes in mental status. -I increase her amlodipine to 10mg daily RTC 2 weeks nurse visit with log if BP not at goal my plan is to add hydrochlorothiazide 12.5mg daily - Do not change or discontinue current prescriptions without first consulting health care provider Dyshidrotic eczema 10/17/2022 Chronic otitis externa of right ear 10/17/2022 Recurrent acute suppurative otitis media of right ear without spontaneous rupture of tympanic membrane 10/17/2022 Conductive hearing loss of r ight ear with unrestricted hearing of left ear 10/17/2022 Chronic low back pain 06/18/2022 Dizziness 06/18/2022 Nausea 06/18/2022 Bilateral hip pain 06/18/2022 Assessment & Plan (11/05/2024 5:04 PM EDT): I will refill her Flexeril 10 mg at bedtime, I advised to continue to follow-up with orthopedics Assessment & Plan (01/17/2024 5:30 PM EDT): Continue to follow with orthopedics C/w pain medication PRN Increased frequency of urination 06/18/2022 Mood disorder 06/18/2022 Pain in lower limb 06/18/2022 Pain in pelvis 06/18/2022 Type 2 diabetes mellitus with hyperglycemia 09/2021 Assessment & Plan (04/09/2025 1:02 PM EDT): In light that glucose is trending up I decided to start her on Mounjaro 2.5 mg weekly plan is to follow-up with her and if she is tolerating well the medication to go up on the dose, side effects of the medications were reviewed and contraindications Assessment & Plan (11/23/2022 3:57 PM EDT): - Lab Results Component Value Date HGBA1C 6.7 (A) 11/23/2022 HGBA1C 6.6 (A) 06/29/2022 HGBA1C 6.1 (H) 06/04/2021 - Lab Results Component Value Date MICROALBUR 0.5 06/04/2021 CREATININE 0.73 05/29/2021 - Diabetic eye exam: up to date - Diabetic foot exam: up to date - Continue lifestyle modifications - Continue current medications Vascular insufficiency 06/18/2022 Exposure to HIV 06/18/2022 History of depression 06/18/2022 Forgetfulness 02/21/2018 Pain in toe 02/21/2018 Effusion of joint of shoulder region 12/18/2015 Gastritis 01/22/2014 Anxiety 09/06/2012 Vitamin D deficiency 06/12/2012 Constipation 06/04/2012 Diabetes mellitus 06/04/2012 Assessment & Plan (02/04/2025 9:50 AM EDT): Diabetes is: not controlled - Lab Results Component Value Date HGBA1C 7.5 (A) 02/04/2025 HGBA1C 7.2 (A) 11/05/2024 HGBA1C 7.3 (A) 07/18/2024 - Lab Results Component Value Date MICROALBUR 0.5 06/04/2021 CREATININE 0.73 07/14/2024 -Changes: extensive counseling about diabetic diet done today, patient declines for now medications - Diabetic eye exam:up to date - Diabetic foot exam:pending - Continue lifestyle modifications - Follow up: 3 months Assessment & Plan (11/05/2024 5:04 PM EDT): Diabetes is: almost at goal - Lab Results Component Value Date HGBA1C 7.2 (A) 11/05/2024 HGBA1C 7.3 (A) 07/18/2024 HGBA1C 6.7 (A) 01/16/2024 - Lab Results Component Value Date MICROALBUR 0.5 06/04/2021 CREATININE 0.73 07/14/2024 -Changes: None - Diabetic eye exam: Up-to-date - Diabetic foot exam: Pending - Continue lifestyle modifications - Continue current medications - Follow up: 3 months Assessment & Plan (07/18/2024 3:54 PM EST): Diabetes is: not controlled - Lab Results Component Value Date HGBA1C 7.3 (A) 07/18/2024 HGBA1C 6.7 (A) 01/16/2024 HGBA1C 6.4 (A) 06/28/2023 - Lab Results Component Value Date MICROALBUR 0.5 06/04/2021 CREATININE 0.73 07/14/2024 -Changes: patient has being taking prednisone which may have A1c go up - Diabetic eye exam:pending - Diabetic foot exam:pending - Continue lifestyle modifications - Continue current medications - Follow up: 3 months Assessment & Plan (01/17/2024 5:31 PM EDT): Diabetes is: almost at goal - Lab Results Component Value Date HGBA1C 6.7 (A) 01/16/2024 HGBA1C 6.4 (A) 06/28/2023 HGBA1C 6.7 (A) 11/23/2022 - Lab Results Component Value Date MICROALBUR 0.5 06/04/2021 CREATININE 0.75 05/31/2023 -Changes: none - Diabetic eye exam:up to date - Diabetic foot exam:pending - Continue lifestyle modifications - Continue current medications - Follow up: 3 months Assessment & Plan (10/17/2023 3:44 PM EDT): Diabetes is: controlled - Lab Results Component Value Date HGBA1C 6.4 (A) 06/28/2023 HGBA1C 6.7 (A) 11/23/2022 HGBA1C 6.6 (A) 06/29/2022 - Lab Results Component Value Date MICROALBUR 0.5 06/04/2021 CREATININE 0.75 05/31/2023 -Changes: none - Diabetic eye exam:up to date - Diabetic foot exam:pending - Continue lifestyle modifications - Continue current medications - Follow up: 3 months Gastroesophageal reflux disease 06/04/2012 Assessment & Plan (11/05/2024 5:03 PM EDT): I advise patient to avoid NSAIDs, spicy and acid food, I advise to eat at the same time every day, I advise to elevate the head of the bed and take medications as prescribe Famotidine 20 mg twice daily prescribed today Assessment & Plan (07/18/2024 3:53 PM EST): I advise patient to avoid NSAIDs, spicy and acid food, I advise to eat at the same time every day, I advise to elevate the head of the bed and take medications as prescribe Hyperlipidemia 06/04/2012 Hypertriglyceridemia 06/04/2012 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 Resolved Problems Problem Noted Date Diagnosed Date Resolved Date Type 2 diabetes mellitus wit h other specified complication, unspecified whether intermediate teacher insulin use 04/09/2025 04/09/2025 Acute frontal sinusitis 06/18/2022 03/2 Elevated blood pressure reading 06/18/2022 10/15/2024 Assessment & Plan (11/23/2022 3:56 PM EDT): BP to be check again with nurse if BP still not at goal I will start amlodipine 5mg daily Otitis externa 06/18/2022 10/03/2022 Encounters Date Type Department Care Team Description 04/09/2025 10:30 AM EDT Telemedicine [facility] [address] [place] [address] [phone] Gracie Whitfield MD Primary hypertension (Primary Dx); Type 2 diabetes mellitus with hyperglycemia, without long-term current use of insulin (CMS/[facility]); Heartburn 04/09/2025 Travel 04/08/2025 Telephone [facility] [address] [place] [phone] Gracie Whitfield MD chart prep 04/03/2025 8:40 AM EDT Office Visit [facility] [address] [place] [address] [phone] Yarelis Foreman DO COVID-19 (Primary Dx); Type 2 diabetes mellitus without complication, without long-term current use of insulin ([facility]/HCC) 04/03/2025 Telephone [facility] [address] [place] [phone] Gracie Whitfield MD Letter Request (I called the patient, regarding her request for a letter. She stated that does not wish to receive the flu vaccine, and her employer asked her to provide a letter from her provider, stating that she does not need to get the vaccine.) 04/03/2025 Travel 04/01/2025 Telephone [facility] [address] [place] [id number] Gracie Whitfield MD Letter for School/Work 03/16/[address] [id number] Gracie Whitfield MD Type 2 diabetes mellitus without complication, without long-term current use of insulin ([facility]/HCC) 02/27/2025 Telephone [facility] [address] [place] [address] Gracie Whitfield MD OCT RECALL 02/21/2025 Orders Only [address] [phone] Gracie Whitfield MD 02/04/2025 9:00 AM EDT Office Visit [address] [address] Gracie Whitfield MD Type 2 diabetes mellitus without complication, without long-term current use of insulin (CMS/HCC); Other hemorrhoids; Chronic hip pain, bilateral 02/04/2025 Travel 02/03/2025 Telephone [facility] [address] [place] [address] Gracie Whitfield MD Chart Prep 01/25/2025 Refill [facility] [address] [place] [address] Gracie Whitfield MD Bilateral hip pain 01/19/2025 Refill [facility] [address] [place] [address] Gracie Whitfield MD Primary insomnia; Moderate persistent asthma, unspecified whether complicated 01/10/2025 Refill [facility] [address] [place] [address] Gracie Whitfield MD Left foot pain from Last 3 Months Immunizations Immunization Administration Dates Next Due Hep A, Adult 06/04/2012 Hep B, adult 05/08/2013,06/04/2012 Influenza Injectable Quadriv alant Preservative Free IIV4 MDCK 05/07/2020 Influenza injectable quadriv alent IIV4 with preservative 09/03/2019 Influenza injectable quadriv alent preservative free 05/21/2021 Influenza, seasonal, injecta ble, preservative free 05/17/2024 Pfizer Covid-19 Vaccine 12+ 06/04/2021,,08/22/2020 Pneumococcal Polysaccharide PPSV23 06/04/2012 TD (adult), 2 Lf tetanus tox oid, preservative free, adsorbed 12/20/2017 Tdap 05/08/2013 Social History Tobacco Use Types Packs/Day Years Used Date Smoking Tobacco: Former Cigarettes Passive Smoke Exposure: Past Smokeless Tobacco: Never Tobacco Cessation:Counseling Given: Not Answered Alcohol Use Standard Drinks/Week Comments Never 0 [...] not to disclose 2021 10:14 AM EDT Last Filed Vital Signs Vital Sign Reading Time Taken Comments Blood Pressure 142/84 04/03/2025 8:47 AM EDT Pulse 78 04/03/2025 8:47 AM EDT Temperature 36.7 C (98 F) 04/03/2025 8:47 AM EDT Respiratory Rate 18 04/03/2025 8:47 AM EDT Oxygen Saturation 98% 04/03/2025 8:47 AM EDT Inhaled Oxygen Concentration - - Weight 78.5 kg (173 lb) 04/03/2025 8:47 AM EDT Height 170.2 cm (5' 7 ) 02/04/2025 9:13 AM EDT Body Mass Index 27.1 02/04/2025 9:13 AM EDT Plan of Treatment Upcoming Encounters Date Type Department Care Team (Late st Contact Info) Description 06/23/2025 9:00 AM EST Office Visit [facility] [address] [place] [address] Monet Johnson, OD [address] [place] [address] Health Maintenance Due Date Last Done Comments CT Colonography 1961 FIT DNA/Cologuard 1961 FIT 1961 FOBT 1961 Sigmoidoscopy 1961 Diabetes: Foot Exam 1971 Hepatitis C Screening 1979 Zoster Vaccines (1 of 2) 2011 Pneumococcal Vaccine: 50+ Years (2 of 2 - PCV) 06/04/2013 06/04/2012 Hepatitis B Vaccines (3 of 3 - 19+ 3-dose series) 07/03/2013 05/08/2013, 06/04/2012 RSV Patients and Patients Aged 60 years or older (1 - Risk 60-74 years 1-dose series) 2021 COVID-19 Vaccine ( - 2024- season) 2025 06/04/2021, 09/12/2020, 08/22/2020 Influenza Vaccine (#1) 2025 , 05/21/2021, 05/07/2020, Additional history exists Diabetes: Hemoglobin A1C 05/07/2025 025, 11/05/2024, 07/18/2024, Additional history exists Pap Smear 06/16/2025 06/16/2022 Alcohol/Substance Use Screening 07/18/2025 07/18/2024 Disability Screening 11/05/2025 11/05/2024 SDOH Screening 12/06/2025 12/06/2024 Colonoscopy 02/04/2026 02/05/2016 Colorectal Cancer Screening 02/04/2026 Diabetes: Urine Protein Screening 02/04/2026 02/04/2025, 12/05/2022, 06/04/2021, Additional history exists Lipid Panel 02/04/2026 02/04/2025, 04/17, 12/05/2022, Additional history exists Eye Exam 02/11/2026 02/12/2024, 01/15, 02/12/2024, Additional history exists Mammogram 02/21/2026 02/21/2025, 08/2023, 02/10/2023, Additional history exists Tobacco Screening 04/03/2026 04/03/2025 Depression Screening 04/09/2026 04/09/2025, 04/09/20 Cervical Cancer Screening 06/16/2027 HPV/Cotest 06/16/2027 06/16/2022 DTaP/Tdap/Td Vaccines (3 - Td or Tdap) 12/21/2027 12/20/2017, 05/08/2013 Hepatitis A Vaccines Aged Out 06/04/2012 No long er eligible based on patient's age to complete this topic HIV Screening Completed 05/07/2024 HIB Vaccines Aged Out No longer eligi ble based on patient's age to complete this topic HPV Vaccines Aged Out No longer eligi ble based on patient's age to complete this topic IPV Vaccines Aged Out No longer eligi ble based on patient's age to complete this topic Meningococcal B Vaccine Aged Out No l onger eligible based on patient's age to complete this topic Meningococcal Vaccine Aged Out No joe ciarra eligible based on patient's age to complete this topic RSV under 20 months Aged Out No longe r eligible based on patient's age to complete this topic Rotavirus Vaccines Aged Out No longer eligible based on patient's age to complete this topic Procedures Procedure Name Priority Date/Time Associated Diagnosis Comments POCT INFLUENZA B (ID NOW RAPID MOLECULAR) Routine 04/03/2025 9:43 AM EDT COVID-19 POCT INFLUENZA A (ID NOW RAPID MOLECULAR) Routine 04/03/2025 9:43 AM EDT COVID-19 POCT RAPID STREP A Routine 04/03/2025 9: 43 AM EDT COVID-19 POCT RAPID COVID ANTIGEN Routine 04/03/2025 9:43 AM EDT COVID-19 BI MAMMOGRAM SCREENING TOMOSYNTHESIS BILATERAL Routine 02/21/2025 11:08 AM EDT COMPREHENSIVE METABOLIC PANEL Routine 02/04/2025 9:41 AM EDT Type 2 diabetes mellitus without complication, without long-term current use of insulin (CMS/HCC) ALBUMIN, RANDOM URINE W/CREATININE Routine 02/04/2025 9:41 AM EDT Type 2 diabetes mellitus without complication, without long-term current use of insulin (CMS/HCC) LIPID PANEL, STANDARD Routine 02/04/2025 9:41 AM EDT Type 2 diabetes mellitus without complication, without long-term current use of insulin (CMS/HCC) POCT GLYCATED HEMOGLOBIN, TOTAL Routine 02/04/2025 9:15 AM EDT Type 2 diabetes mellitus without complication, without long-term current use of insulin (CMS/HCC) POCT GLUCOSE Routine 02/04/2025 9:14 AM EDT Type 2 diabetes mellitus without complication, without long-term current use of insulin (CMS/HCC) HIV 1/2 ANTIGEN/ANTIBODY, FOURTH GENERATION W/RFL Routine 05/07/2024 3:55 PM EDT Type 2 diabetes mellitus without complication, without long-term current use of insulin (CMS/HCC) HPV MRNA E6/E7 REFLEX TO HPV 16, 18/45 Routine 06/16/2022 3:33 PM EST PAP SMEAR Routine 06/16/2022 3:33 PM EST HM COLONOSCOPY Routine 02/05/2016 from Last 3 Months or Most Recently Relevant to Health Maintenance Results * Influenza B (ID NOW Rapid Molecular) (04/03/2025 9:43 AM EDT) Influenza B Negative Negative, Indeterminate [facility] Swab 04/03/2025 9:43 AM EDT Yarelis Foreman DO POINT OF CARE TEST ENTER/CHRIS T ORDERABLES Final Result Performing Organization Address [facility]/ZIP Co de Phone Number [facility] [address] [place] [phone] * Influenza A (ID NOW Rapid Molecular) (04/03/2025 9:43 AM EDT) Influenza A Negative Negative, Indeterminate [facility] Swab 04/03/2025 9:43 AM EDT us Yarelis Foreman DO POINT OF CARE TEST ENTER/CHRIS T ORDERABLES Final Result Performing Organization Address [facility] de Phone Number [facility] [address] [place] [phone] * (ABNORMAL) POCT Rapid COVID Ag (04/03/2025 9:43 AM EDT) Pathologist [facility] Rapid COVID Ag Positive [facility] Swab 04/03/2025 9:43 AM EDT us Yarelis Foreman DO POINT OF CARE TEST ENTER/CHRIS T ORDERABLES Final Result Performing Organization Address [facility] [[email or web address]] Co de Phone Number [facility] [address] [place] [phone] * POCT rapid strep A manually resulted (04/03/2025 9:43 AM EDT) [facility] Rapid Strep A Screen Negative Negative, None Detected [facility] Swab 04/03/2025 9:43 AM EDT Yarelis Foreman DO POINT OF CARE TEST ENTER/CHRIS T ORDERABLES Final Result Performing Organization Address [facility]/ZIP Co de Phone Number [facility] [address] [place] [address] [phone] * BI Mammogram Screening Tomosynthesis Bilateral (02/21/2025 11:08 AM EDT) Anatomical Region Laterality Modality Breast Bilateral Mammography 02/21/2025 11:0 8 AM EDT Narrative 03/03/2025 9:33 AM EDT [facility] [address] [place] [address] Mammography Report Signed Patient: Lolis Baker MR#: [id number] 22 : 1960 Acct:[id number] Age/Sex: 65 / F ADM Date: 02/21/25 Loc: HO.MAMMO Attending Dr: Gracie Raza MD Ordering Physician: Gracie Whitfield MD Results: 1Negative Date of Service: 02/21/25 Follow Up: 1 Year From Orig inal Mammogram Procedure(s): MM tomosynthesis screening BI Accession Number(s): [id number] cc: Gracie Whitfield MD EXAMINATION: MM SCREENING DIGITAL BREAST TOMOSYNTHESIS, BILATERAL CLINICAL INFORMATION: Screening. Asymptomatic. COMPARISON: Comparison made to multiple prior, most recent February 16, 2024, and most remote June 11, 2018. TECHNIQUE: Digital breast tomosynthesis is performed in both the craniocaudal and mediolateral oblique views along with computer-aided detection (CAD). FINDINGS: BREAST COMPOSITION: The breasts are heterogeneously dense, which may obscure small masses (ACR BI-RADS breast composition Category c). BILATERAL BREASTS: No significant masses, suspicious calcifications or other abnormalities are seen in either breast. MM/MM tomosynthesis screening BI IMPRESSION: BILATERAL BREASTS: Negative, no mammographic evidence of malignancy. Normal interval follow-up is recommended in 12 months. ASSESSMENT: BI-RADS 1 - Negative RECOMMENDATION: Routine annual mammography screening. FOLLOW-UP: 1 year F/U This examination should not preclude the clinical evaluation of a suspicious palpable abnormality. This patient's information was entered into a reminder system with a target due date for their next mammogram. Electronically signed by: Sarah Armenta MD 03/03/2025 09:30 AM EDT Dictated By: Sarah Armenta MD Signed By: <Electronically signed by Sarah Armenta MD in OV> 03/03/25 0930 DD/ 1108 TD/TT: 02/21/25 1128 Three Dimensional Art Instructor: Procedure Note Donotuseinterpreter, Image - 03/03/20[facility] [address] [place] [address] Mammography Report Signed Patient: Lolis Baker MMR#: [id number] 22 : 1960cct:[id number] Age/Sex: 65 / FADM Date: 02/21/25 Loc: HO.MAMMO Attending Dr: Gracie Raza MD Ordering Physician: Gracie Whitfield MDResults: 1Negative Date of Service: 02/21/25Follow Up: 1 Year From Orig ina Mammogram Procedure(s): MM tomosynthesis screening BI Accession Number(s): [id number] cc: Gracie [place] MD EXAMINATION: MM SCREENING DIGITAL BREAST TOMOSYNTHESIS, BILATERAL CLINICAL INFORMATION: Screening. Asymptomatic. COMPARISON: Comparison made to multiple prior, most recent February 16, 2024, and most remote June 11, 2018. TECHNIQUE: Digital breast tomosynthesis is performed in both the craniocaudal and mediolateral oblique views along with computer-aided detection (CAD). FINDINGS: BREAST COMPOSITION: The breasts are heterogeneously dense, which may obscure small masses (ACR BI-RADS breast composition Category c). BILATERAL BREASTS: No significant masses, suspicious calcifications or other abnormalities are seen in either breast. MM/MM tomosynthesis screening BI IMPRESSION: BILATERAL BREASTS: Negative, no mammographic evidence of malignancy. Normal interval follow-up is recommended in 12 months. ASSESSMENT: BI-RADS 1 - Negative RECOMMENDATION: Routine annual mammography screening. FOLLOW-UP: 1 year F/U This examination should not preclude the clinical evaluation of a suspicious palpable abnormality. This patient's information was entered into a reminder system with a target due date for their next mammogram. Electronically signed by: Sarah Armenta MD 03/03/2025 09:30 AM EDT Dictated By: Sarah Armenta MD Signed By: <Electronically signed by Sarah Armenta MD in OV> 03/03/25 0930 DD/ 1108 TD/TT: 02/21/25 1128 Three Dimensional Art Instructor: us Gracie Raza MD IMG BI PROCEDURES Fin al Result * Albumin, Random Urine W/Creatinine (02/04/2025 9:41 AM EDT) Creatinine, Urine 31.39 mg/dL [facility] Microalbumin Urine <5.0 mg/L [facility] Microalbum Creatinine Ratio Ur TNP <30 ug/mg cr [facility] Comment:Unable to calculate albumin/creatinine ratio due to lowmicroalbumin or creatinine result. Urine (Urine, Random) 02/04/2025 9:41 AM EDT 02/04/2025 11:09 AM EDT us Gracie Raza MD LAB URINE ORDERABLES Final Result [facility] [address] [place] [phone] * (ABNORMAL) Lipid Panel, Standard (02/04/2025 9:41 AM EDT) Triglycerides 156(H) <150 mg/dL [facility] Comment:Desirable Triglyceri de: less than 150 mg/dLBorderline High Triglyceride 150-199 mg/dLHigh Triglyceride: 200-499 mg/dLVery High Triglyceride: greater than or equal to 5OO mg/dL Cholesterol 207(H) <200 mg/dL [facility] Comment:Desirable Cholestero l: less than 200 mg/dLBorderline High Cholesterol: 200-239 mg/dLHigh Cholesterol: greater than 239 mg/dL LDL Cholesterol Calculated 127(H) <100 mg/dL [facility] Comment:Desirable LDL: less than 100 mg/dLNear Optimal/Above Optimal LDL: 110- 129 mg/dLBorderline High LDL: 130-159 mg/dLHigh LDL: 160-189 mg/dLVery High LDL: greater than or equal to 190 mg/dL HDL Cholesterol 49 >40 mg/dL [facility] Comment:Desirable HDL: great er than 40 mg/dL Note: This HDL assay may give artificially low results in patients with liver disease. Blood Venous blood specimen / Unknown 02/04/2025 9:41 AM EDT 02/04/2025 11:10 AM EDT us Gracie Raza MD LAB BLOOD ORDERABLES Final Result [facility] [address] [place], [place] [phone] * (ABNORMAL) Comprehensive Metabolic Panel (02/04/2025 9:41 AM EDT) Sodium 139 135 - 145 mmol/L [facility] Potassium 4.3 3.3 - 5.1 mmol/L [facility] Chloride 104 96 - 108 mmol/L [facility] Carbon Dioxide 29 22 - 29 mmol/L [facility] Anion Gap 10(L) 12 - 20 [facility] Urea Nitrogen (BUN) 17(H) 9 - 16 mg/dL [facility] Creatinine, Serum 0.63 0.5 - 1.4 mg/dL [facility] Estimated Glomerular Filt Rate >60 [facility] Comment:Chronic Kidney Disea se: Estimated GFR < 60 mL/min/1.67i8Pprdei Kidney Disease: Estimated GFR < 15 mL/min/1.73m2 Glucose 160(H) 60 - 115 mg/dL [facility] Calcium 9.2 8.4 - 10.2 mg/dL [facility] Bilirubin, Total 0.4 0.0 - 1.0 mg/dL [facility] Aspartate Amino Transferase 26 5 - 31 U/L [facility] Alanine Aminotransferase 32(H) 0 - 31 U/L [facility] Total Protein 7.9 6.5 - 8.0 g/dL [facility] Albumin Level 4.6 3.5 - 5.0 g/dL [facility] Alkaline Phosphatase 86 39 - 117 U/L [facility] Blood Venous blood specimen / Unknown 02/04/2025 9:41 AM EDT 02/04/2025 11:10 AM EDT Gracie Raza MD LAB BLOOD ORDERABLES Final Result [facility] [address] [place] [phone] * (ABNORMAL) POCT HGB A1C (02/04/2025 9:15 AM EDT) Pathologist [facility] Hemoglobin A1C 7.5(A) 4.0 - 5.7 % QC Media Lot # [id number] Lot# Expiration Date [id number] Blood 02/04/2025 9:15 AM EDT Gracie Raza MD POINT OF CARE TEST EN TER/EDIT ORDERABLES Final Result * POCT Glucose (02/04/2025 9:14 AM EDT) Pathologist [facility] Glucose Blood, POC 185 60 - 200 mg/dL QC Media Lot # [id number] Lot# Expiration Date [id number] Blood Capillary blood specimen / Unknown 02/04/2025 9:14 AM EDT Gracie Raza MD POINT OF CARE TEST EN TER/EDIT ORDERABLES Final Result * HIV-1/2 Antigen and Antibodies, Fourth Generation, with Reflexes (05/07/2024 3:55 PM EDT) Pathologist [facility] HIV AB/AG Nonreactive Nonreactive [facility] Comment:HIV-1 p24 Ag and/or HIV-1/HIV-2 Ab not detected.A test result that is nonreactive does not exclude thepossibility of exposure to or infection with HIV-1 and/orHIV-2. Nonreactive results in this assay for individualswith prior exposure to HIV-1 and/or HIV-2 may be due toantigen and antibody levels that are below the limit ofdetection of this assay.The [employer] HIV Ag/Ab Combo assay result andsupplemental assay results should be interpreted inconjunction with the patient's clinical presentation,history and other laboratory results. If the results areinconsistent with clinical evidence, additional testing issuggested to confirm the result. Blood Venous blood specimen / Unknown 05/07/2024 3:55 PM EDT 05/07/2024 5:31 PM EDT Gracie Raza MD LAB BLOOD ORDERABLES Final Result [facility] [address] [place] [phone] * HPV mRNA E6/E7 w/Reflex to HPV Genotypes 16, 18/45 (06/16/2022 3:33 PM EST) HPV nRNA E6/E7 Not Detected Not Detected [facility] Comment:Methodology: Transcr iption-Mediated AmplificationThis assay detects E6/E7 viral messenger RNA (mRNA) from 14high-risk HPV types (16,18,31,33,35,39,45,51,52,56,58,59,66,68).Cervical sources are required for HPV testing.If a vaginal source from a patient who has had atotal hysterectomy with removal of cervix wassubmitted, please contact the testing laboratoryfor alternative testing options.For additional information, please refer [email or web address]/faq/CBX654v1(This link if provided for information/educational purposes only.)THIS TEST WAS PERFORMED AT:[employer] [place] [address] [address],[place] [phone] GARZA MD HPV mRNA E6/E7 [facility] HPV 16 RNA [facility] HPV 18/45 RNA [facility] 06/16/2022 3:33 PM EST 06/17/2022 11:30 AM EST [facility] External Provider LAB CYT OLOGY ORDERABLES Final Result [facility] [address] [place] [phone] * Pap Smear (06/16/2022 3:33 PM EST) 06/16/2022 3:33 PM EST 06/17/2022 11:30 AM EST Narrative [facility] - 07/04/2022 3:58 PM EST ----- ------- Name: Lolis Baker Age/Sex: 62/F : 1960 Unit#: [id number] Attend Dr: Taylor Goel CNM Re06/16/22 Status: DEP REF Location: [facility] Disch: ----- ------- SPEC : [id number] RECD: 06/17/22 STATUS: MARYA WICK NUM: [id number] CALVIN: 06/16/22-[address]: Taylor Goel CNM ENTERED: 06/17/22-1211 SP TYPE: Pap Smr OTHR DR: ORDERED: Pap Smear Interpretation Satisfactory for evaluation. Obscuring lubricant. Negative for intraepithelial lesion or malignancy. Atrophic. HPV mRNA E6/E7: NOT DETECTED This assay detects E6/E7 viral messenger RNA (mRNA) from 14 high-risk HPV types (16, 18, 31, 33, 35, 39, 45, 51, 52, 56, 58, 59, 66, 68) HPV testing performed by [employer], [place], MD. See reference laboratory portion of the EMR for entire report. Clinical Information LMP: Post menopause Previous PAP test: Unknown Material Received ThinPrep-Cervical ----- ------- Signed (signature on file) Lucy Castro 07/04/22 1558 ----- ------- END OF REPORT [facility] External Provider LAB LAITH CLAUDIO ORDERABLES Final Result [facility] [address] [place] [phone] * Colonoscopy (02/05/2016) Colonoscopy Normal Normal Narrative Matthew Barajasba - 02/05/2016 Recommended 10 year follow up Historical Provider HEALTH MAINTENANCE Edited Result - Final from Last 3 Months or Most Recently Relevant to Health Maintenance [place] [place] [address] C3 Care Teams Frameman Relationship Specialty Start Date End Date Gracie [place] MD [address] [place] [phone] PCP - General Family Medicine 06/12/18
--- OUTSIDE RECORDS SUMMARY | 2025-04-10 16:36 | XMS_ITS | Encounter Summary ---
Author Organization [employer] Address [address] [place] [address] [address] [place] [address] Care Team Providers Care Extruding Machine Operator Name Role Phone Gracie Whitfield MD Primary Care Provide r Encounter Details Date Type Department Care Team ([facility] Contact Info) Description 07/26/2022 Telephone [facility] MEDICINE [address] [place] [phone] Gracie Whitfield MD [address] [place] [address] Social History Tobacco Use Types Packs/Day Years [...] AM EST documented as of this encounter Plan of Treatment Upcoming Encounters Date Type Department Care Team ([facility] Contact Info) Description 06/23/2025 9:00 AM EST Office Visit [facility] OPTOM[facility] [address] [place] [address] Monet Johnson, OD [address] [place], [place] [phone] documented as of this encounter Visit Diagnoses Not on filedocumented in this encounter Care Teams Extruding Machine Operator Relationship Specialty Start Date End Date Gracie Whitfield MD [address] [place], [place] [phone] PCP - General Family Medicine 06/12/18 documented as of this encounter
--- OUTSIDE RECORDS SUMMARY | 2025-04-10 16:36 | XMS_ITS | Encounter Summary ---
Author Organization [employer] Address [address] [place] [phone] Care Team Providers Care Card Maker Name Role Phone Gracie Whitfield MD Primary Care Provide r Reason for Visit * Reason Onset Date Comments returning call 08/05/2022 Encounter Details Date Type Department Care Team (Late st Contact Info) Description 08/05/2022 Telephone [facility] MEDICINE [address] [place] [address] Gracie Whitfield MD [address] [place] [phone] returning call Social History Tobacco Use Types [...] encounter Miscellaneous Notes * Telephone Encounter - Zulma Willoughby - 08/05/2022 1:20 PM EST Tc from pt calling to inform received a call . But fha underwriter does not see a message . documented in this encounter Plan of Treatment Upcoming Encounters Date Type Department Care Team (Late st Contact Info) Description 06/23/2025 9:00 AM EST Office Visit [facility] OPTOMETRY [address] [place] [address] Monet Johnson, OD [address] [place] [address] documented as of this encounter Visit Diagnoses Not on filedocumented in this encounter Care Teams Card Maker Relationship Specialty Start Date End Date Gracie Whitfield MD [address] [place] [address] PCP - General Family Medicine 06/12/18 documented as of this encounter
--- OUTSIDE RECORDS SUMMARY | 2025-04-10 16:36 | XMS_ITS | Encounter Summary ---
Author Organization [employer] Address [address] [facility] [address] [place] [address] Care Team Providers Care Dietist Name Role Phone Gracie Whitfield MD Primary Care Provide r Encounter Details Date Type Department Care Team ([facility] st Contact Info) Description 02/01/2024 Telephone [facility] MEDICINE [address] [place] [address] Gracie Whitfield MD [address] [place] [address] Social History Tobacco Use Types Packs/Day Years [...] got money to buy more: Never True 01/16/2024 Within the past 12 months,th e food you bought just didn't last and you didn't have enough money to get more: Never True 08/2023 Transportation Answer Date Recorded In the past [...] Recorded Patient Health Questionnaire-2 Score 0 01/16/2024 Comments Unknown Sex and Gender Information Value [...] Description 06/23/2025 9:00 AM EST Office Visit [facility] OPTOMET[facility] [address] [place] [address] Alex, Monet, OD [address] [place] [address] documented as of this encounter Visit Diagnoses Not on filedocumented in this encounter Additional Health Concerns Assessment Noted Time PHQ-9 Depression Total Score: 0 01/16/20 24 3:13 PM EDT documented as of this encounter Care Teams Dietist Relationship Specialty Start Date End Date Gracie Whitfield MD [address] [place] [address] PCP - General Family Medicine 06/12/18 documented as of this encounter
== END 2025-04-10 11:45 | disposition home or self-care (01) ==
LOC: HO.HHCL 11:44
PROVIDERS: PCP Internal Medicine; Visit Provider Internal Medicine
DX: R12 Heartburn (principal)
CPT/HCPCS: 87338

== ENCOUNTER 2025-06-20 23:18 | Emergency (ER) | payer MEDICAID, SELFPAY ==
--- NOTE | ~2025-06-20 | CT_ITS ---
CLINICAL HISTORY: sudden onset headache, dizziness CT head without contrast Comparison: CT/REG/SR - CT HEAD/BRAIN WO IV CON - 01/30/24 20:48 EDT Findings: No intra-axial mass, midline shift, hydrocephalus, or acute hemorrhage. No lobar predominant atrophy. Mild microvascular changes. There is no obstructive mucosal sinus disease. Mastoid air cells are aerated. The orbits are within normal limits. No skull fracture. IMPRESSION: 1. No acute intracranial findings. This document has been electronically signed by: Dawit Mitchell III, MD PHD on 06/21/2025 04:43:26
--- NOTE | ~2025-06-20 | XR_ITS ---
CLINICAL HISTORY: chest pain 1 view chest x-ray Comparison: CR - XR CHEST 2V - 07/14/24 11:03 EST Findings: Lung inflation is normal. Cardiac and mediastinal silhouettes are normal. No pleural effusion or pneumothorax. No consolidation No acute fracture. IMPRESSION: 1. No acute cardiopulmonary or pleural process. This document has been electronically signed by: Dawit Mitchell III, MD PHD on 06/21/2025 00:39:15
--- NOTE | 2025-06-20 23:19 | ECG_ITS ---
Test Reason : chest pain Blood Pressure : */* mmHG Vent. Rate : 78 BPM Atrial Rate : 78 BPM P-R Int : 140 ms QRS Dur : 70 ms QT Int : 370 ms P-R-T Axes : 50 12 49 degrees QTcB Int : 421 ms Normal sinus rhythm Normal ECG When compared with ECG of 14-Jul-2024 11:10, Premature atrial complexes are no longer Present Referred By: Generic ED Physician Electronically Signed By: STEPHANIE STAPLETON
[2025-06-20 23:35] VITALS: BP 156/79; PULSE 78; RESP 20; TEMP 36.6; O2SAT 94; BMI 31.4
[2025-06-21 00:14] LABS: Hematocrit 42.2 % (37.0-47.0); Hemoglobin 14.3 g/dl (12.0-16.0); Imm Gran Abs Auto 0.03 X10*3/uL (0.00-0.03); Imm Gran Pct Auto 0.4 % (0.0-0.4); Lymphocytes Absolute Auto 2.9 X10*3/uL (1.2-4.9); MANUAL DIFF FLAG NO; Mean Corpuscular HGB Conc 33.9 g/dl (31.0-35.0); Mean Corpuscular Hemoglobin 28.1 pg (27.0-33.0); Mean Corpuscular Volume 82.9 fL (80.0-98.0); NRBC Abs Auto 0.000 X10*3/uL (0.0-0.012); NRBC Pct Auto 0.0 /100WBC (0.0-0.2); Platelet Count 162 X10*3/uL (160-400); Red Blood Count 5.09 X10*6/uL (4.20-5.50); White Blood Count 8.2 X10*3/uL (4.8-10.8)
[2025-06-21 00:28] LABS: Alanine Aminotransferase 30 U/L (0-31); Albumin Level 4.6 g/dL (3.5-5.0); Alkaline Phosphatase 93 U/L (39-117); Anion Gap 13 (12-20); Aspartate Amino Transferase 25 U/L (5-31); Blood Urea Nitrogen 20 mg/dL (9-16); Calcium 9.1 mg/dL (8.4-10.2); Carbon Dioxide 22 mmol/L (22-29); Chloride 110 mmol/L (96-108); Creatinine Clr Calc Pharmacy 87.7; Estimated Glomerular Filt Rate > 60; Potassium 4.4 mmol/L (3.3-5.1); Sodium 141 mmol/L (135-145); Total Protein 7.6 g/dL (6.5-8.0)
[2025-06-21 00:34] LABS: Troponin-I High Sensitivity < 2.7 ng/L (<3.5-17.0)
[2025-06-21 00:50] LABS: Resp Syncy Virus RNA Qual PCR NEGATIVE (Negative); SARS COV2 PCR INHOUSE NEGATIVE (Negative)
[2025-06-21 01:54] VITALS: BP 137/83; PULSE 75; RESP 15; TEMP 36.5; O2SAT 95
--- OUTSIDE RECORDS SUMMARY | 2025-06-21 02:12 | XMS_ITS | Encounter Summary ---
Author Organization [employer] Address [address] [place] [address] 7 [place] [address] Care Team Providers Care Ceramist Name Role Phone Gracie Whitfield MD Primary Care Provide r Encounter Details Date Type Department Care Team (Late st Contact Info) Description 06/21/2025 Orders Only GENERIC EXTERNAL DATA DEPARTMENT Provider, Generic External Data Social History Tobacco Use Types Packs/Day Years [...] Description 06/23/2025 9:00 AM EST Office Visit [facility] OPTOMETRY [address] [place] [address] Alex, Monet, OD [address] [place] [address] 08/19/2025 9:00 AM EST Office Visit [facility] MEDICINE [address] [place] [address] Gracie Whitfield MD [address] [place] [address] documented as of this encounter Goals Goal Patient Goal Type Associated Problems Recent Progress Patient-Stated? Author Help patients manage their type 2 diabetes Care Plan Help patients manage their type 2 diabetes Shaylee West [place] Weekly blood pressure task Care Plan Weekly blood pressure task No Shaylee Powell MA Help patients manage their type 2 diabetes Care Plan Help patients manage their type 2 diabetes Shaylee West [place] Patient has chronic kidney disease Care Plan Patient has chronic kidney disease Shaylee West [place] Weekly blood pressure task Care Plan Weekly blood pressure task Shaylee West [place] Patient has chronic kidney disease Care Plan Patient has chronic kidney disease No Shaylee Powell MA documented as of this encounter Procedures Procedure Name Priority Date/Time Associated Diagnosis Comments XR CHEST 1 VIEW Routine 06/21/2025 12:39 AM EST HIGH SENSITIVITY TROPONIN I Routine 06/21/2025 12:07 AM EST SARS COV2/INFLUENZA A/B AND RSV RNA QL NAAT Routine 06/21/2025 12:07 AM EST CBC WITH AUTO DIFFERENTIAL Routine 06/21/2025 12:07 AM EST COMPREHENSIVE METABOLIC PANEL Routine 06/21/2025 12:07 AM EST documented in this encounter Results * XR Chest 1 View (06/21/2025 12:39 AM EST) Anatomical Region Laterality Modality Chest Radiographic Corrine ging 06/21/2025 12:3 9 AM EST Narrative 06/21/2025 12:40 AM EST [place] [id number] XRay Report Signed Patient: Lolis Baker MR#: [id number] 22 : 1960 Acct:[id number] Age/Sex: 65 / F ADM Date: 06/20/25 Loc: .ED Attending Dr: Ordering Physician: Generic ED Physician Date of Service: 06/21/25 Procedure(s): XR chest 1V Accession Number(s): [id number] cc: Gracie Whitfield MD; Generic ED Physician Reason for Exam: chest pain CLINICAL HISTORY: chest pain 1 view chest x-ray Comparison: CR - XR CHEST 2V - 07/14/24 11:03 EST Findings: Lung inflation is normal. Cardiac and mediastinal silhouettes are normal. No pleural effusion or pneumothorax. No consolidation No acute fracture. IMPRESSION: 1. No acute cardiopulmonary or pleural process. This document has been electronically signed by: Dawit Mitchell III, MD PHD on 06/21/2025 00:39:15 Dictated By: Dawit Mitchell MD Signed By: <Electronically signed by Dawit Mitchell MD in OV> 06/21/25 0040 DD/ 0039 TD/TT: 06/21/25 0039 Pin Ticket Machine Operator: Procedure Note Marcosotrazainterpreter, Image - 06/21/[address] [address] XRay Report Signed Patient: Lolis Baker MMR#: [id number] 22 : 1Acct:[id number] Age/Sex: 65 / FADM Date: 06/20/25 Loc: HO.ED Attending Dr: Ordering Physician: Generic ED Physician Date of Service: 06/21/25 Procedure(s): XR chest 1V Accession Number(s): [id number] cc: Gracie Whitfield MD; Generic ED Physician Reason for Exam: chest pain CLINICAL HISTORY: chest pain 1 view chest x-ray Comparison: CR - XR CHEST 2V - 07/14/24 11:03 EST Findings: Lung inflation is normal. Cardiac and mediastinal silhouettes are normal. No pleural effusion or pneumothorax. No consolidation No acute fracture. IMPRESSION: 1. No acute cardiopulmonary or pleural process. This document has been electronically signed by: Dawit Mitchell III, MD PHD on 06/21/2025 00:39:15 Dictated By: Dawit Mitchell MD Signed By: <Electronically signed by Dawit Mitchell MD in OV> 06/21/25 0040 DD/ 0039 TD/TT: 06/21/25 003 Pin Ticket Machine Operator: [facility] External Provider IMG XR PROCEDURES Edited Result - Final * SARS-CoV-2 RNA, Influenza A/B, and RSV RNA, Ql NAAT (06/21/2025 12:07 AM EST) Influenza A PCR NEGATIVE Negative [facility] Influenza B PCR NEGATIVE Negative [facility] Resp Syncy Virus RNA Qual PCR NEGATIVE Negative [facility] SARS COV2 PCR NEGATIVE Negative [facility] Comment:All test results mus t be correlated with clinical findings.Negative results do not preclude SARS-CoV2, influenza Avirus, influenza B virus and/or RSV infectionand should not be used as the sole basis for treatment orother patient management decisions. Negative results must becombined with clinical observations, patient history, andepidemiological information.This test has not been evaluated for monitoring treatment ofinfection.This test has been authorized by the FDA under an EmergencyUse Authorization (EUA) for use by authorized laboratories.Testing performed on the [employer] GeneXpert utilizingreal-time RT-PCR.All SARS CoV2 and positive influenza A/B results arereported to [facility]. 06/21/2025 12:0 7 AM EST 06/21/2025 12:12 AM EST Generic External Data Provider LAB MICROBIOLOGY - GENERAL ORDERABLES Final Result Performing Organization Address [facility] de Phone Number [facility] [address] [place] [phone] * High Sensitivity Troponin I (06/21/2025 12:07 AM EST) [facility] TROPONIN I HIGH SENSITIVITY <2.7 <3.5 - 17.0 ng/L [facility] Comment:The [place] high sens itivity Troponin-I results should beused in conjunction with other diagnostic information suchas ECG, clinical observations and information, and patientsymptoms to aid in the diagnosis of MO. 06/21/2025 12:0 7 AM EST 06/21/2025 12:12 AM EST Generic External Data Provider LAB BLOOD ORDERAB LES Final Result Performing Organization Address [facility] de Phone Number [facility] [address] [place] [phone] * (ABNORMAL) Comprehensive Metabolic Panel (06/21/2025 12:07 AM EST) [facility] Sodium 141 135 - 145 mmol/L [facility] Potassium 4.4 3.3 - 5.1 mmol/L [facility] Chloride 110(H) 96 - 108 mmol/L [facility] Carbon Dioxide 22 22 - 29 mmol/L [facility] Anion Gap 13 12 - 20 [facility] Urea Nitrogen (BUN) 20(H) 9 - 16 mg/dL [facility] Creatinine, Serum 0.65 0.5 - 1.4 mg/dL [facility] Creatinine Clr Calc Pharmacy 87.7 [facility] Comment:Provided height and weight: 160.02 cm,80.286 kg.eGFR (calculated from the MDRD study equation) and eCrCl(calculated from the Cockcroft-Gault equation) are based ondifferent parameters and may not yield comparable results.If eCrCl result is absurd, please check patient'sheight/weight. Estimated Glomerular Filt Rate >60 [facility] Comment:Chronic Kidney Disea se: Estimated GFR < 60 mL/min/[id number] Kidney Disease: Estimated GFR < 15 mL/min/1.73m2 Glucose 178(H) 60 - 115 mg/dL [facility] Calcium 9.1 8.4 - 10.2 mg/dL [facility] Bilirubin, Total 0.2 0.0 - 1.0 mg/dL [facility] Aspartate Amino Transferase 25 5 - 31 U/L [facility] Alanine Aminotransferase 30 0 - 31 U/L [facility] Total Protein 7.6 6.5 - 8.0 g/dL [facility] Albumin Level 4.6 3.5 - 5.0 g/dL [facility] Alkaline Phosphatase 93 39 - 117 U/L [facility] 06/21/2025 12:0 7 AM EST 06/21/2025 12:12 AM EST us Generic External Data Provider LAB BLOOD ORDERAB LES Final Result [facility] [address] [place] [phone] * CBC auto differential (06/21/2025 12:07 AM EST) White Blood Count 8.2 4.8 - 10.8 X10*3/uL [facility] Red Blood Count 5.09 4.20 - 5.50 X10*6/uL [facility] Hemoglobin 14.3 12.0 - 16.0 g/dl [facility] Hematocrit 42.2 37.0 - 47.0 % [facility] Mean Corpuscular Volume 82.9 80.0 - 98.0 fL [facility] Mean Corpuscular Hemoglobin 28.1 27.0 - 33.0 pg [facility] Mean Corpuscular HGB Conc 33.9 31.0 - 35.0 g/dl [facility] Red Cell Distribution Width 13.4 11.0 - 16.0 % [facility] Platelet Count 162 160 - 400 X10*3/uL [facility] Mean Platelet Volume 12.1 9.4 - 12.3 fL [facility] Neutrophils Percent Auto 53.7 45 - 73 % [facility] Imm Gran Pct Auto 0.4 0.0 - 0.4 % [facility] Lymphocytes Percent Auto 35.2 20 - 40 % [facility] Monocytes Percent Auto 7.7 2 - 11 % [facility] Eosinophils Percent Auto 1.8 0 - 4 % [facility] Basophils Percent Auto 1.2 0 - 2 % [facility] NRBC Pct Auto 0.0 0.0 - 0.2 /100WBC [facility] Neutrophils Absolute Auto 4.4 2.0 - 8.3 x10*3/uL [facility] Imm Gran Abs Auto 0.03 0.00 - 0.03 X10*3/uL [facility] Lymphocytes Absolute Auto 2.9 1.2 - 4.9 X10*3/uL [facility] Monocytes Absolute Auto 0.6 0.1 - 1.2 X10*3/uL [facility] Eosinophils Absolute Auto 0.2 0.0 - 0.4 X10*3/uL [facility] Basophils Absolute Auto 0.1 0.0 - 0.2 X10*3/uL [facility] NRBC Abs Auto 0.000 0.0 - 0.012 X10*3/uL [facility] 06/21/2025 12:0 7 AM EST 06/21/2025 12:12 AM EST us Generic External Data Provider LAB BLOOD ORDERAB LES Final Result [facility] [address] [place] [phone] [phone] documented in this encounter Visit Diagnoses Not on filedocumented in this encounter Additional Health Concerns Active Problems Noted Date Diagnosed Date Help patients manage their type 2 diabetes 05/30 Weekly blood pressure task 05/30/2025 Help patients manage their type 2 diabetes 05/30 Patient has chronic kidney disease 05/30/2025 Weekly blood pressure task 05/30/2025 Patient has chronic kidney disease 05/30/2025 Assessment Noted Time PHQ-9 Depression Total Score: 0 04/09/20 25 10:15 AM EDT documented as of this encounter Care Teams Ceramist Relationship Specialty Start Date End Date Gracie Whitfield MD [address] [place] [phone] PCP - General Family Medicine 06/12/18 documented as of this encounter
--- OUTSIDE RECORDS SUMMARY | 2025-06-21 02:12 | XMS_ITS | Encounter Summary ---
Author Organization [employer] Address [address] [place] [address] [place] [address] Care Team Providers Care Insurance Sales Specialist Name Role Phone Gracie Whitfield MD Primary Care Provide r Reason for Visit * Reason Onset Date Comments inactive script 08/08/2022 Encounter Details Date Type Department Care Team (Late Contact Info) Description 08/08/2022 Telephone [facility] MEDICINE [address] [place] [address] Gracie Whitifeld MD [address] [place] [address] inactive script Social History Tobacco Use Types [...] Description 06/23/2025 9:00 AM EST Office Visit [facility] OPTOMETRY [address] [place] [address] Monet Johnson OD [address] [place] [address] 08/19/2025 9:00 AM EST Office Visit [facility] MEDICINE [address] [place] [address] Gracie Whitfield MD [address] [place] [address] documented as of this encounter Visit Diagnoses Not on filedocumented in this encounter Care Teams Insurance Sales Specialist Relationship Specialty Start Date End Date Gracie Whitfield MD [address] [place], [place] [phone] PCP - General Family Medicine 06/12/18 documented as of this encounter
--- OUTSIDE RECORDS SUMMARY | 2025-06-21 02:12 | XMS_ITS | Encounter Summary ---
Author Organization [employer] Address [address] [place] [address] [place] [address] Care Team Providers Care Hotel Night Auditor Name Role Phone Gracie Whitfield MD Primary Care Provide r Reason for Visit * Reason Onset Date Comments Med Refill 09/13/2023 Encounter Details Date Type Department Care Team ([facility] st Contact Info) Description 09/13/2023 Telephone [facility]ICINE [address] [place] [address] Gracie Whitfield MD [address] [place] [address] Med Refill Social History Tobacco Use Types [...] encounter Miscellaneous Notes * Telephone Encounter - aYrelis Cameron LPN - 09/13/2023 1:09 PM EST Medication pended to PCP. * Telephone Encounter - Carolyne Maria - 09/13/2023 12:13 PM EST TC from pt requesting medication refill. Medications needing refill : Ibuprofen 400 mg To be sent to: [facility] documented in this encounter Plan of Treatment Upcoming Encounters Date Type Department Care Team (Late st Contact Info) Description 06/23/2025 9:00 AM EST Office Visit [facility] OPTOMETRY [address] [place] [address] Alex, Monet, OD [address] [place] [address] 08/19/2025 9:00 AM EST Office Visit [facility] MEDICINE [address] [place] [address] Gracie Whitfield MD [address] [place] [address] documented as of this encounter Visit Diagnoses Not on filedocumented in this encounter Care Teams Hotel Night Auditor Relationship Specialty Start Date End Date Gracie Whitfield MD [address] [place] [address] PCP - General Family Medicine 06/12/18 documented as of this encounter
--- OUTSIDE RECORDS SUMMARY | 2025-06-21 02:12 | XMS_ITS | Clinical Summary ---
Author Organization [employer] Address [address] [place] [address] [address] [place] [address] Care Team Providers Care Social Media Developer Name Role Phone Gracie Whitfield MD Primary [...] complication, without long-term current use of insulin ([facility]) TEST BLOOD SUGAR TWICE DAILY 100 each 11 Active FreeStyle lancetsIndicati ons:Type 2 diabetes mellitus without complication, without long-term current use of insulin ([facility]) 1 each by Other route Once per [...] day. 90 tablet 3 025 2025 Active famotidine (Pepcid) 20 MG tabletIndicatio ns:Gastroesopha geal reflux disease, unspecified whether esophagitis present TAKE 1 TABLET BY MOUTH TWICE A DAY 180 tablet 1 025 Active Blood Pressure Monitoring (Blood Pressure Cuff) miscIndications :Primary hypertension 1 each in the morning. 1 each 025 Active Blood Glucose Monitoring Suppl (FreeStyle [place] Lite) w/Device kitIndications: Type 2 diabetes mellitus without complication, without long-term current use of insulin ([facility]) TEST BLOOD SUGAR DIRECTED 1 kit 025 Active albuterol (Ventolin HFA) 108 (90 Base) MCG/ACT inhalerIndicati ons:Moderate persistent asthma, unspecified whether complicated INHALE 2 PUFFS BY MOUTH EVERY 4 TO 6 HOURS NEEDED FOR WHEEZING 18 g 1 5 9:10 AM EST 025 Active hydrOXYzine HCl (Atarax) 25 MG tabletIndicatio ns:Primary insomnia TAKE 1 TABLET BY MOUTH AT BEDTIME NEEDED FOR ITCHING 30 tablet 1 5 9:10 AM EST 025 Active Asmanex HFA 200 MCG/ACT aerosolIndicati ons:Moderate persistent asthma, unspecified whether complicated INHALE 1 PUFF BY MOUTH TWICE DAILY RINSE MOUTH AFTER USING. 13 g 2 5 9:10 AM EST 025 Active cyclobenzaprine (Flexeril) 10 MG tabletIndicatio ns:Bilateral hip pain TAKE 1 TABLET BY MOUTH THREE TIMES DAILY 30 tablet 3 5 9:10 AM EST 025 Active cetirizine (ZyrTEC) 10 MG tablet Take 1 tablet (10 mg) by mouth if needed each day for rhinitis. 30 tablet 3 025 2025 Active fluticasone (Flonase) 50 MCG/ACT nasal spray Administer 2 sprays into each nostril if needed each day for rhinitis. Shake gently. Before first use, prime pump. After use, clean tip and replace cap. 16 g 3 025 2025 Active Tirzepatide (Mounjaro) 2.5 MG/0.5ML solution auto-injectorIn dications:Type 2 diabetes mellitus with hyperglycemia, without long-term current use of insulin ([facility]) Inject 2.5 mg under the skin 1 (one) time per week. 2 mL 2 5 9:10 AM EST 025 Active amLODIPine (Norvasc) 10 MG tabletIndicatio ns:Primary hypertension TAKE 1 TABLET BY MOUTH EVERY DAY IN THE MORNING 90 tablet 1 025 Active LORazepam (Ativan) 0.5 MG tabletIndicatio ns:Anxiety TAKE 1 TABLET BY MOUTH EVERY DAY NEEDED FOR ANXIETY 5 tablet 025 Active acetaminophen (Tylenol 8 Hour) 650 MG ER tabletIndicatio ns:Type 2 diabetes mellitus without complication, without long-term current use of insulin ([facility]) TAKE 1 TABLET BY MOUTH EVERY 8 HOURS NEEDED PAIN (leve). DO NOT BREAK, CRUSH, DISSOLVE OR CHEW 60 tablet 1 5 9:10 AM EST 025 Active linaCLOtide (Linzess) 72 MCG capsuleIndicati ons:Constipatio n, unspecified constipation type TAKE 1 CAPSULE BY MOUTH EVERY DAY ON AN EMPTY STOMACH, 30 MINUTES BEFORE BREAKFAST 30 capsule 3 5 9:10 AM EST 025 Active ibuprofen 400 MG tabletIndicatio ns:Left foot pain TAKE 1 TABLET BY MOUTH EVERY 6 HOURS NEEDED (for pain) 30 tablet 2 025 Active Proctosol HC 2.5 % rectal creamIndication s:Other hemorrhoids INSERT RECTALLY TWICE DAILY 28.35 g 1 025 Active ibuprofen 400 MG tabletIndicatio ns:Left foot pain TAKE 1 TABLET BY MOUTH EVERY 6 HOURS NEEDED FOR PAIN 30 tablet 2 025 2024 Discontinued hydrocortisone (Anusol-HC) 2.5 % rectal creamIndication s:Other hemorrhoids Insert into the rectum 2 times daily. 28 g 1 5 9:10 AM EST 025 2024 Discontinued Active Problems Problem Noted Date Diagnosed Date [...] wit h other specified complication, unspecified whether retirement insulin use 04/09/2025 04/09/2025 Acute frontal sinusitis 06/18/2022 03/2 Elevated blood pressure reading 06/18/2022 10/15/2024 Assessment & Plan (11/23/2022 3:56 PM EDT): BP to be check again with nurse if BP still not at goal I will start amlodipine 5mg daily Otitis externa 06/18/2022 10/03/2022 Encounters Date Type Department Care Team Description 06/21/2025 Orders Only GENERIC EXTERNAL DATA DEPARTMENT Provider, Generic External Data 06/09/2025 Refill [facility] [address] [place] [address] Gracie Whitfield MD Other hemorrhoids 06/02/2025 Refill [facility] [address] [place] [address] Gracie Whitfield MD Left foot pain 05/30/2025 Telephone [facility] [address] [place] [address] Gracie Whitfield MD feb recalls 05/15/2025 Refill [facility] [address] [place] [address] Gracie Whitfield MD Constipation, unspecified constipation type 05/05/2025 Refill [facility] [address] [place] [address] Yarelis Foreman DO Type 2 diabetes mellitus without complication, without long-term current use of insulin ([facility]) 04/21/2025 Refill [facility] [address] [place] [phone] Gracie Whitfield MD Anxiety 04/20/2025 Refill [facility] [address] [place] [address] [phone] Gracie Whitfield MD Primary hypertension 04/09/2025 10:30 AM EDT Telemedicine [address] [address] Gracie Whitfield MD Primary hypertension (Primary Dx); Type 2 diabetes mellitus with hyperglycemia, without long-term current use of insulin ([facility]); Heartburn 04/09/2025 Travel 04/08/[address] [address] Gracie Whitfield MD chart prep 04/03/2025 8:40 AM EDT Office Visit [facility] [address] [place] [phone] Yarelis Foreman DO COVID-19 (Primary Dx); Type 2 diabetes mellitus without complication, without long-term current use of insulin ([facility]) 04/03/[address] [address] Gracie Whitfield MD Letter Request (I called the patient, regarding her request for a letter. She stated that does not wish to receive the flu vaccine, and her employer asked her to provide a letter from her provider, stating that she does not need to get the vaccine.) 04/03/2025 Travel 04/01/2025 Telephone [facility] [address] [place] [address] [phone] Gracie Whitfield MD Letter for School/Work from Last 3 Months Immunizations Immunization Administration Dates Next Due Hep A, Adult 06/04/2012 Hep B, adult 05/08/2013,06/04/2012 Influenza Injectable Quadriv alant Preservative Free IIV4 MDCK 05/07/2020 Influenza injectable quadriv alent IIV4 with preservative 09/03/2019 Influenza injectable quadriv alent preservative free 05/21/2021 Influenza, seasonal, injecta ble, preservative free 05/17/2024 Pfizer Covid-19 Vaccine 12+ 06/04/2021, 1,08/22/2020 Pneumococcal Polysaccharide PPSV23 06/04/2012 TD (adult), 2 [...] Description 06/23/2025 9:00 AM EST Office Visit [facility] [address] [place] [address] Alex, Monet, OD [address] [place] [address] 08/19/2025 9:00 AM EST Office Visit [facility] [address] [place] [address] Gracie Whitfield MD [address] [place] [address] Health Maintenance Due Date Last Done Comments CT Colonography 1961 FIT DNA/Cologuard 1961 FIT 1960 FOBT 1960 Sigmoidoscopy 1961 Diabetes: Foot Exam 1971 Hepatitis C Screening 1979 RSV Patients and Patients Aged 60 years or older (1 - Risk 50-74 years 1-dose series) 2011 Zoster Vaccines (1 of 2) 2011 Pneumococcal Vaccine: 50+ Years (2 of 2 - PCV) 06/04/2013 06/04/2012 Hepatitis B Vaccines (3 of 3 - 19+ 3-dose series) 07/03/2013 05/08/2013, 06/04/2012 COVID-19 Vaccine (4 - season) 2025 06/04/2021, 09/12/2020, 08/22/2020 Influenza Vaccine (#1) 2025 , 05/21/2021, 05/07/2020, Additional history exists Diabetes: Hemoglobin A1C 05/07/2025 025, 11/05/2024, 07/18/2024, Additional history exists Pap Smear 06/16/2025 06/16/2022 Alcohol/Substance Use Screening 07/18/2025 07/18/2024 Disability Screening 11/05/2025 11/05/2024 SDOH Screening 12/06/2025 12/06/2024 Colonoscopy 02/04/2026 02/05/2016 Colorectal Cancer Screening 02/04/2026 Diabetes: Urine Protein Screening 02/04/2026 02/04/2025, 12/05/2022, 12/05/2022, Additional history exists Lipid Panel 02/04/2026 02/04/2025, 04/17, 12/05/2022, Additional history exists Eye Exam 02/11/2026 02/12/2024, 01/15, 02/12/2024, Additional history exists Mammogram 02/21/2026 02/21/2025, 08/08/2023, 02/10/2023, Additional history exists Tobacco Screening 04/03/2026 04/03/2025 Depression Screening 04/09/2026 04/09/2025, 04/09/20 25 Cervical Cancer Screening 06/16/2027 HPV/Cotest 06/16/2027 06/16/2022 [...] on patient's age to complete this topic Goals Goal Patient Goal Type Associated Problems Recent Progress Patient-Stated? Author Help patients manage their type 2 diabetes Care Plan Help patients manage their type 2 diabetes No Shaylee Powell MA Weekly blood pressure task Care Plan Weekly blood pressure task No Shaylee Powell MA Help patients manage their type 2 diabetes Care Plan Help patients manage their type 2 diabetes No Shaylee Powell MA Patient has chronic kidney disease Care Plan Patient has chronic kidney disease No Shaylee Powell MA Weekly blood pressure task Care Plan Weekly blood pressure task No Shaylee Powell MA Patient has chronic kidney disease Care Plan Patient has chronic kidney disease No Shaylee Powell MA Procedures Procedure Name Priority Date/Time Associated Diagnosis Comments XR CHEST 1 VIEW Routine 06/21/2025 12:39 AM EST HIGH SENSITIVITY TROPONIN I Routine 06/21/2025 12:07 AM EST COMPREHENSIVE METABOLIC PANEL Routine 06/21/2025 12:07 AM EST CBC WITH AUTO DIFFERENTIAL Routine 06/21/2025 12:07 AM EST SARS COV2/INFLUENZA A/B AND RSV RNA QL NAAT Routine 06/21/2025 12:07 AM EST HELICOBACTER PYLORI AG, EIA, STOOL Routine 04/10/2025 9:30 AM EDT Heartburn POCT INFLUENZA B (ID NOW RAPID MOLECULAR) Routine 04/03/2025 9:43 AM EDT COVID-19 POCT INFLUENZA A (ID NOW RAPID MOLECULAR) Routine 04/03/2025 9:43 AM EDT COVID-19 POCT RAPID STREP A Routine 04/03/2025 9: 43 AM EDT COVID-19 POCT RAPID COVID ANTIGEN Routine 04/03/2025 9:43 AM EDT COVID-19 BI MAMMOGRAM SCREENING TOMOSYNTHESIS BILATERAL Routine 02/21/2025 11:08 AM EDT ALBUMIN, RANDOM URINE W/CREATININE Routine 02/04/2025 9:41 [...] Recently Relevant to Health Maintenance Results * XR Chest 1 View (06/21/2025 12:39 AM EST) Anatomical Region Laterality Modality Chest Radiographic Corrine ging 06/21/2025 12:3 9 AM EST Narrative 06/21/2025 12:40 AM EST [address] [address] XRay Report Signed Patient: Lolis Baker MR#: [id number] 22 : 1960 Acct:[id number] Age/Sex: 65 / F ADM Date: 06/20/25 Loc: HO.ED Attending Dr: Ordering Physician: Generic ED Physician Date of Service: 06/21/25 Procedure(s): XR chest 1V Accession Number(s): [id number] cc: Gracie Whitfield MD; Generic ED Physician [...] 06/21/25 0040 DD/ 0039 TD/TT: 06/21/25 0039 [employer] Lumber Straightener: Procedure Note Donotuseinterpreter, Image - 06/21/[address] [address] XRay Report Signed Patient: Lolis Baker MMR#: [id number] 22 : 1960cct:[id number] Age/Sex: 65 / FADM Date: 06/20/25 Loc: HO.ED Attending Dr: Ordering Physician: Generic ED Physician Date of Service: 06/21/25 Procedure(s): XR chest 1V Accession Number(s): [id number] cc: Gracie Whitfield MD; Generic ED Physician [...] signed by Dawit Mitchell MD in OV> 06/21/2539 DD/ TD/TT: 06/21/2538 Sorter Lumber Straightener: [facility] External Provider IMG XR PROCEDURES Edited Result - Final * High Sensitivity Troponin I (06/21/2025 12:07 AM EST) [facility] TROPONIN I HIGH SENSITIVITY <2.7 <3.5 - 17.0 ng/L [facility] Comment:The [place] high sens itivity Troponin-I results should beused in conjunction with other diagnostic information suchas ECG, clinical observations and information, and patientsymptoms to aid in the diagnosis of MD. 06/21/2025 12:0 7 AM EST 06/21/2025 12:12 AM EST Generic External Data Provider LAB BLOOD ORDERAB LES Final Result [facility] [address] [place] [phone] * SARS-CoV-2 RNA, Influenza A/B, and RSV RNA, Ql NAAT (06/21/2025 12:07 AM EST) [facility] Influenza A PCR NEGATIVE Negative [facility] Influenza B PCR NEGATIVE Negative [facility] Resp Syncy Virus RNA Qual PCR NEGATIVE Negative [facility] SARS COV2 PCR NEGATIVE Negative [facility] Comment:All test results mus t be [...] use by authorized laboratories.Testing performed on the [email or web address] GeneXpert utilizingreal-time RT-PCR.All SARS CoV2 and positive influenza A/B results arereported to [facility]. 06/21/2025 12:0 7 AM EST 06/21/2025 12:12 AM EST us Generic External Data Provider LAB MICROBIOLOGY - GENERAL ORDERABLES Final Result [facility] [address] [place] [phone] * CBC auto differential (06/21/2025 12:07 AM EST) White Blood Count 8.2 4.8 - 10.8 X10*3/uL [facility] Red Blood Count 5.09 4.20 - 5.50 X10*6/uL [facility] Hemoglobin 14.3 12.0 - 16.0 g/dl [facility] Hematocrit 42.2 37.0 - 47.0 % [facility] Mean Corpuscular Volume 82.9 80.0 - 98.0 fL [facility] Mean Corpuscular Hemoglobin 28.1 27.0 - 33.0 pg [facility] Mean Corpuscular HGB Conc 33.9 31.0 - 35.0 g/dl [facility] Red Cell Distribution Width 13.4 11.0 - 16.0 % [facility] Platelet Count 162 160 - 400 X10*3/uL [facility] Mean Platelet Volume 12.1 9.4 - 12.3 fL [facility] Neutrophils Percent Auto 53.7 45 - 73 % [facility] Imm Gran Pct Auto 0.4 0.0 - 0.4 % [facility] Lymphocytes Percent Auto 35.2 20 - 40 % [facility] Monocytes Percent Auto 7.7 2 - 11 % [facility] Eosinophils Percent Auto 1.8 0 - 4 % [facility] Basophils Percent Auto 1.2 0 - 2 % [facility] NRBC Pct Auto 0.0 0.0 - 0.2 /100WBC [facility] Neutrophils Absolute Auto 4.4 2.0 - 8.3 x10*3/uL [facility] Imm Gran Abs Auto 0.03 0.00 - 0.03 X10*3/uL [facility] Lymphocytes Absolute Auto 2.9 1.2 - 4.9 X10*3/uL [facility] Monocytes Absolute Auto 0.6 0.1 - 1.2 X10*3/uL [facility] Eosinophils Absolute Auto 0.2 0.0 - 0.4 X10*3/uL [facility] Basophils Absolute Auto 0.1 0.0 - 0.2 X10*3/uL [facility] NRBC Abs Auto 0.000 0.0 - 0.012 X10*3/uL [facility] 06/21/2025 12:0 7 AM EST 06/21/2025 12:12 AM EST us Generic External Data Provider LAB BLOOD ORDERAB LES Final Result [facility] [address] [place] [phone] * (ABNORMAL) Comprehensive Metabolic Panel (06/21/2025 12:07 AM EST) Sodium 141 135 - 145 mmol/L [facility] Potassium 4.4 3.3 - 5.1 mmol/L [facility] Chloride 110(H) 96 - 108 mmol/L [facility] Carbon Dioxide 22 22 - 29 mmol/L [facility] Anion Gap 13 12 - 20 [facility] Urea Nitrogen (BUN) 20(H) 9 - 16 mg/dL [facility] Creatinine, Serum 0.65 0.5 - 1.4 mg/dL [facility] Creatinine Clr Calc Pharmacy 87.7 [facility] Comment:Provided height and weight: 160.02 cm,80.286 kg.eGFR (calculated from the MDRD study equation) and eCrCl(calculated from the Cockcroft-Gault equation) are based ondifferent parameters and may not yield comparable results.If eCrCl result is absurd, please check patient'sheight/weight. Estimated Glomerular Filt Rate >60 [facility] Comment:Chronic Kidney Disea se: Estimated GFR < 60 mL/min/1.27a8Ahdmhe Kidney Disease: Estimated GFR < 15 mL/min/1.73m2 Glucose 178(H) 60 - 115 mg/dL [facility] Calcium 9.1 8.4 - 10.2 mg/dL [facility] Bilirubin, Total 0.2 0.0 - 1.0 mg/dL [facility] Aspartate Amino Transferase 25 5 - 31 U/L [facility] Alanine Aminotransferase 30 0 - 31 U/L [facility] Total Protein 7.6 6.5 - 8.0 g/dL [facility] Albumin Level 4.6 3.5 - 5.0 g/dL [facility] Alkaline Phosphatase 93 39 - 117 U/L [facility] 06/21/2025 12:0 7 AM EST 06/21/2025 12:12 AM EST us Generic External Data Provider LAB BLOOD ORDERAB LES Final Result [facility] [address] [place], [place] [phone] * Helicobacter pylori??Antigen, EIA, Stool (04/10/2025 9:30 AM EDT) H pylori Ag Stool SEE NOTE [facility] Comment:HELICOBACTER PYLORI AG, EIA, STOOL Micro Number: [id number] Test Status: Final Specimen Source: Stool Specimen Quality: Adequate H.pylori Ag: Not Detected Antimicrobials, proton pump inhibitors, and bismuth preparations inhibit H. pylori and ingestion up to two weeks prior to testing may cause false negative results. If clinically indicated the test should be repeated on a new specimen obtained two weeks after discontinuing treatment. Reference Range: Not DetectedTHIS TEST WAS PERFORMED AT:[employer] [place] [phone] GARZA MD Stool Rectal contents / Unknown 04/10/2025 9:30 AM EDT 04/10/2025 1:48 PM EDT us Gracie Raza MD LAB BODY FLUIDS AND S TOOLS ORDERABLES Final Result Performing Organization Address [facility]/ZIP Co de Phone Number [facility] [address] [place] [phone] * Influenza B (ID NOW Rapid Molecular) (04/03/2025 9:43 AM EDT) Influenza B Negative Negative, Indeterminate [facility] Swab 04/03/2025 9:43 AM EDT us Yarelis Foreman DO POINT OF CARE TEST ENTER/CHRIS T ORDERABLES Final Result Performing Organization Address [facility] Co de Phone Number [facility] [address] [place] [phone] * Influenza A (ID NOW Rapid Molecular) (04/03/2025 9:43 AM EDT) Influenza A Negative Negative, Indeterminate [facility] Swab 04/03/2025 9:43 AM EDT us Yarelis Foreman DO POINT OF CARE TEST ENTER/CHRIS T ORDERABLES Final Result Performing Organization Address [facility] Co de Phone Number [facility] [address] [place] [phone] * (ABNORMAL) POCT Rapid COVID Ag (04/03/2025 9:43 AM EDT) Rapid COVID Ag Positive [facility] Swab 04/03/2025 9:43 AM EDT Yarelis Foreman DO POINT OF CARE TEST ENTER/CHRIS T ORDERABLES Final Result Performing Organization Address [facility] Co de Phone Number [facility] [address] [place] [phone] * POCT rapid strep A manually resulted (04/03/2025 9:43 AM EDT) Rapid Strep A Screen Negative Negative, None Detected [facility] Swab 04/03/2025 9:43 AM EDT Yarelis Foreman DO POINT OF CARE TEST ENTER/CHRIS T ORDERABLES Final Result Performing Organization Address [facility] de Phone Number [facility] [address] [place] [phone] * BI Mammogram Screening Tomosynthesis Bilateral (02/21/2025 11:08 AM EDT) Anatomical Region Laterality Modality Breast Bilateral Mammography 02/21/2025 11:0 8 AM EDT Narrative 03/03/2025 9:33 AM EDT [facility] [address] [place] [address] Mammography Report Signed Patient: Lolis Baker MR#: [id number] 22 : 1960 Acct:[id number] Age/Sex: 65 / F ADM Date: 02/21/25 Loc: MAMMO Attending Dr: Gracie Raza MD Ordering Physician: Gracie Whitfield MD Results: 1Negative Date of Service: 02/21/25 Follow Up: 1 Year From Orig inal Mammogram Procedure(s): MM tomosynthesis screening BI Accession Number(s): [id number] cc: Gracie Whitfield MD EXAMINATION: MM SCREENING [...] Sarah Armenta MD 03/03/2025 09:30 AM EDT RP Dictated By: Sarah Armenta MD Signed By: <Electronically signed by Sarah Armenta MD in OV> 03/03/25 0930 DD/ 1108 TD/TT: 02/21/25 1128 S[employer] Lumber Straightener: Procedure Note Donotuseinterpreter, Image - 03/03/2025 [facility] [address] [place] [address] Mammography Report Signed Patient: Lolis Baker [facility]#: [id number] 22 : 1960cct:[id number] Age/Sex: 65 / FADM Date: 02/21/25 Loc: HO.MAMMO Attending Dr: Gracie Raza MD Ordering Physician: Gracie Whitfield MDResults: 1Negative Date of Service: 02/21/25Follow Up: 1 Year From Orig inal Mammogram Procedure(s): MM tomosynthesis screening BI Accession Number(s): [id number] cc: Gracie Whitfield MD EXAMINATION: MM SCREENING [...] 03/03/25 0930 DD/ 1108 TD/TT: 02/21/25 1128 Sorter Lumber Straightener: us Gracie Raza MD IMG BI PROCEDURES Fin al Result * Albumin, Random Urine W/Creatinine (02/04/2025 9:41 AM EDT) Creatinine, Urine 31.39 mg/dL [facility] Microalbumin Urine <5.0 mg/L [facility] Microalbum Creatinine Ratio Ur TNP <30 ug/mg cr [facility] Comment:Unable to calculate albumin/creatinine ratio due to lowmicroalbumin or creatinine result. Urine (Urine, Random) 02/04/2025 9:41 AM EDT 02/04/2025 11:09 AM EDT us Gracie Raza MD LAB URINE ORDERABLES Final Result Performing Organization Address City/[facility]/ZIP Co de Phone Number [facility] [address] [place] [phone] * (ABNORMAL) Lipid Panel, Standard (02/04/2025 9:41 AM EDT) Triglycerides 156(H) <150 mg/dL [facility] Comment:Desirable Triglyceri de: less than 150 mg/dLBorderline High Triglyceride 150-199 mg/dLHigh Triglyceride: 200-499 mg/dLVery High Triglyceride: greater than or equal to 5OO mg/dL Cholesterol 207(H) <200 mg/dL [facility] Comment:Desirable Cholestero l: less than 200 mg/dLBorderline High Cholesterol: 200-239 mg/dLHigh Cholesterol: greater than 239 mg/dL LDL Cholesterol Calculated 127(H) <100 mg/dL [facility] Comment:Desirable LDL: less than 100 mg/dLNear Optimal/Above Optimal LDL: 110- 129 mg/dLBorderline High LDL: 130-159 mg/dLHigh LDL: 160-189 mg/dLVery High LDL: greater than or equal to 190 mg/dL HDL Cholesterol 49 >40 mg/dL [facility] Comment:Desirable HDL: great er than 40 mg/dL Note: This HDL assay may give artificially low results in patients with liver disease. Blood Venous blood specimen / Unknown 02/04/2025 9:41 AM EDT 02/04/2025 11:10 AM EDT us Gracie Raza MD LAB BLOOD ORDERABLES Final Result [facility] [address] [place] [phone] * (ABNORMAL) POCT HGB A1C (02/04/2025 9:15 AM EDT) Pathologist [facility] Hemoglobin A1C 7.5(A) 4.0 - 5.7 % QC Media Lot # [id number] Lot# Expiration Date ,[id number] Blood 02/04/2025 9:15 AM EDT Gracie Raza MD POINT OF CARE TEST EN TER/EDIT ORDERABLES Final Result * HIV-1/2 Antigen and Antibodies, Fourth Generation, with Reflexes (05/07/2024 3:55 PM EDT) [facility] HIV AB/AG Nonreactive Nonreactive [facility] Comment:HIV-1 p24 Ag and/or HIV-1/HIV-2 Ab not detected.A test result that is nonreactive does not exclude thepossibility of exposure to or infection with HIV-1 and/orHIV-2. Nonreactive results in this assay for individualswith prior exposure to HIV-1 and/or HIV-2 may be due toantigen and antibody levels that are below the limit ofdetection of this assay.The [employer] HIV Ag/Ab Combo assay result andsupplemental assay results should be interpreted inconjunction with the patient's clinical presentation,history and other laboratory results. If the results areinconsistent with clinical evidence, additional testing issuggested to confirm the result. Blood Venous blood specimen / Unknown 05/07/2024 3:55 PM EDT 05/07/2024 5:31 PM EDT Gracie Raza MD LAB BLOOD ORDERABLES Final Result [facility] [address] [place] [phone] * HPV mRNA E6/E7 w/Reflex to HPV Genotypes 16, 18/45 (06/16/2022 3:33 PM EST) [facility] HPV nRNA E6/E7 Not Detected Not Detected [facility] Comment:Methodology: Transcr iption-Mediated AmplificationThis assay detects E6/E7 viral messenger RNA (mRNA) from 14high-risk HPV types (16,18,31,33,35,39,45,51,52,56,58,59,66,68).Cervical sources are required for HPV testing.If a vaginal source from a patient who has had atotal hysterectomy with removal of cervix wassubmitted, please contact the testing laboratoryfor alternative testing options.For additional information, please refer [email or web address]/VHE737k9(This link if provided for information/educational purposes only.)THIS TEST WAS PERFORMED AT:[employer] [place] [address],[place] [address]TMDKYCRUZ GARZA MD HPV mRNA E6/E7 [facility] HPV 16 RNA [facility] HPV 18/45 RNA [facility] 06/16/2022 3:33 PM EST 06/17/2022 11:30 AM EST [facility] External Provider LAB CYT OLOGY ORDERABLES Final Result Performing Organization Address City/State/[facility] Co de Phone Number [facility] [address] [place] [address] [phone] * Pap Smear (06/16/2022 3:33 PM EST) 06/16/2022 3:33 PM EST 06/17/2022 11:30 AM EST Narrative [facility] - 07/04/2022 3:58 PM EST ----- ------- Name: Lolis Baker Age/Sex: 62/F : 1960 Unit#: [id number] Attend Dr: Taylor Goel [facility] Re06/16/22 Status: DEP REF Location: [facility] Disch: ----- ------- SPEC : [id number] RECD: 06/17/22 STATUS: MARYA WICK NUM: [id number] CALVIN: 06/16/22-[address] [facility] [address]: Taylor Goel [facility] ENTERED: 06/17/22-1211 SP TYPE: Pap Smr OTHR DR: ORDERED: Pap Smear Interpretation Satisfactory for evaluation. Obscuring lubricant. Negative for intraepithelial lesion or malignancy. Atrophic. HPV mRNA E6/E7: NOT DETECTED This assay detects E6/E7 viral messenger RNA (mRNA) from 14 high-risk HPV types (16, 18, 31, 33, 35, 39, 45, 51, 52, 56, 58, 59, 66, 68) HPV testing performed by [facility], [place], [place]. See reference laboratory portion of the EMR for entire report. Clinical Information LMP: Post menopause Previous PAP test: Unknown Material Received ThinPrep-Cervical ----- ------- Signed (signature on file) Lucy Litzy Castro 07/04/22 1558 ----- ------- END OF REPORT [facility] External Provider LAB CYT OLVALENTINMychal ORDERABLES Final Result [facility] [address] [place] [address] [phone] * Colonoscopy (02/05/2016) Colonoscopy Normal Normal Narrative Larissa Barajas - 02/05/2016 Recommended 10 year follow up Historical Provider HEALTH MAINTENANCE Edited Result - Final from Last 3 Months or Most Recently Relevant to Health Maintenance Additional Health Concerns Active Problems Noted Date Diagnosed Date Help patients manage their type 2 diabetes 05/30 Weekly blood pressure task 05/30/2025 Help patients manage their type 2 diabetes 05/30 Patient has chronic kidney disease 05/30/2025 Weekly blood pressure task 05/30/2025 Patient has chronic kidney disease 05/30/2025 Insurance [facility] C3 Care Teams Social Media Developer Relationship Specialty Start Date End Date Gracie Whitfield MD [address] [place] [id number] PCP - General Family Medicine 06/12/18
--- OUTSIDE RECORDS SUMMARY | 2025-06-21 02:12 | XMS_ITS | Encounter Summary ---
Author Organization [employer] Address [address] [place] [address] Care Team Providers Care Psychologists Name Role Phone Gracie Whitfield MD Primary Care Provide r Reason for Visit * Reason Onset Date Comments returning call 08/05/2022 Encounter Details Date Type Department Care Team (Late st Contact Info) Description 08/05/2022 Telephone [facility] MED[facility] [address] [place] [address] Gracie Whitfield MD [address] [place] [address] returning call Social History Tobacco Use Types [...] to inform received a call . But entry writer does not see a message . documented in this encounter Plan of Treatment Upcoming Encounters Date Type Department Care Team (Late st Contact Info) Description 06/23/2025 9:00 AM EST Office Visit [facility] OPTOMETRY [address] [place] [address] Monet Johnson, OD [address] [place] [address] 08/19/2025 9:00 AM EST Office Visit [facility] MED[facility]INE [address] [place] [address] Gracie Whitfield MD [address] [place] [address] documented as of this encounter Visit Diagnoses Not on filedocumented in this encounter Care Teams Psychologists Relationship Specialty Start Date End Date Gracie Whitfield MD [address] [place] [address] PCP - General Family Medicine 06/12/18 documented as of this encounter
--- OUTSIDE RECORDS SUMMARY | 2025-06-21 02:12 | XMS_ITS | Encounter Summary ---
Author Organization [employer] Address [address] [place] [address] Care Team Providers Care Grease Machine Worker Name Role Phone Gracie Whitfield MD Primary Care Provide r Reason for Visit * Reason Onset Date Comments Durable Medical Equipment 12/12/2024 Encounter Details Date Type Department Care Team ([facility] st Contact Info) Description 12/12/[address] [facility] [address] [place] [address] Gracie Whitfield MD [address] [place] [address] Durable Medical Equipment Social History Tobacco Use [...] with others, in a hotel, in a long term, living outside on the street, on a [...] Miscellaneous Notes * Telephone Encounter - Johnnie Ramón - 12/12/2024 10:30 AM EDT Tc from pt stating she has lost her Blood Pressure kit and is now requesting a new script. If any questions please contact pt at [phone]. (Colombian Speaker) documented in this encounter Plan of Treatment Upcoming Encounters Date Type Department Care Team (Late st Contact Info) Description 06/23/2025 9:00 AM EST Office Visit [facility] OPTOMETRY [address] [place] [address] Alex, Monet, OD [address] [place] [address] 08/19/2025 9:00 AM EST Office Visit [facility] MEDICINE [address] [place] [address] Gracie Whitfield MD [address] [place], [place] [phone] documented as of this encounter Visit Diagnoses Not on filedocumented in this encounter Additional Health Concerns Assessment Noted Time PHQ-9 Depression Total Score: 0 07/18/19 25 11:04 AM EST documented as of this encounter Care Teams Grease Machine Worker Relationship Specialty Start Date End Date Gracie Whitfield MD [address] [place] [address] PCP - General Family Medicine 06/12/18 documented as of this encounter
--- OUTSIDE RECORDS SUMMARY | 2025-06-21 02:12 | XMS_ITS | Encounter Summary ---
Author Organization [employer] Address [address] [facility] 7 [place] [address] Care Team Providers Care Program Director/Air Personality Name Role Phone Gracie Whitfield MD Primary Care Provide r Reason for Visit * Reason Comments Med Refill Encounter Details Date Type Department Care Team ([facility] Contact Info) Description 06/29/2024 Refill [facility] [address] [place] [address] Gracie Whitfield MD [address] [place] [address] Social History Tobacco Use Types Packs/Day Years [...] Description 06/23/2025 9:00 AM EST Office Visit [facility] OPTOMETRY [address] [place] [address] Alex, Monet, OD [address] [place] [address] 08/19/2025 9:00 AM EST Office Visit [facility] [address] [place] [address] Gracie Whitfield MD [address] [place] [address] documented as of this encounter Visit Diagnoses Not on filedocumented in this encounter Additional Health Concerns Assessment Noted Time PHQ-9 Depression Total Score: 0 01/16/20 24 3:13 PM EDT documented as of this encounter Care Teams Program Director/Air Personality Relationship Specialty Start Date End Date Gracie Whitfield MD [address] [place] [address] PCP - General Family Medicine 06/12/18 documented as of this encounter
--- OUTSIDE RECORDS SUMMARY | 2025-06-21 02:12 | XMS_ITS | Encounter Summary ---
Author Organization [email or web address] Address [address] [place] [address] [place] [address] Care Team Providers Care Campus President Name Role Phone Gracie Whitfield MD Primary Care Provide r Reason for Visit * Reason Onset Date Comments returning call 07/01/2022 Encounter Details Date Type Department Care Team ([facility] st Contact Info) Description 07/01/2022 Telephone [facility] MEDICINE [address] [place] [address] Gracie Whitfield MD [address] [place] [address] returning call Social History Tobacco Use Types [...] pt returning call Please contact pt at [phone] speaks polish documented in this encounter Plan of Treatment Upcoming Encounters Date Type Department Care Team (Late st Contact Info) Description 06/23/2025 9:00 AM EST Office Visit [facility] OPTOMETRY [address] [place] [address] Alex, Monet, OD [address] [place] [address] 08/19/2025 9:00 AM EST Office Visit [facility] MEDICINE [address] [place] [address] Gracie Whitfield MD [address] [place] [address] documented as of this encounter Visit Diagnoses Not on filedocumented in this encounter Care Teams Campus President Relationship Specialty Start Date End Date Gracie Whitfield MD [address] [place] [address] PCP - General Family Medicine 06/12/18 documented as of this encounter
--- OUTSIDE RECORDS SUMMARY | 2025-06-21 02:12 | XMS_ITS | Encounter Summary ---
Author Organization [employer] Address [address] [place] [address] Care Team Providers Care Oracle Forms Developer Name Role Phone Gracie Whitfield MD Primary Care Provide r Reason for Visit * Reason Onset Date Comments Nurse Triage 10/09/2024 Encounter Details Date Type Department Care Team ([facility] st Contact Info) Description 10/09/2024 Telephone [facility] MED[facility] [address] [place] [address] Gracie Whitfield MD [address] [place] [address] Nurse Triage Social History Tobacco Use Types [...] 10/10/2024 10:48 AM EDT Triage call with [facility] [place] [id number], [place]. Pt reports dry cough since last [...] ASK apt with Dr. Wynn 10/15/24 @ 5945Am. Pt agrees with disposition. If cough and [...] call Regarding prior message. Contact pt at [phone] * Telephone Encounter - Norberto Watson - [...] Description 06/23/2025 9:00 AM EST Office Visit [facility] OPTOMETRY [address] [place] [address] Monet Johnson, OD [address] [place] [address] 08/19/2025 9:00 AM EST Office Visit [facility] MEDICINE [address] [place] [address] Gracie Whitfield MD [address] [place] [address] documented as of this encounter Visit Diagnoses Not on filedocumented in this encounter Additional Health Concerns Assessment Noted Time PHQ-9 Depression Total Score: 0 07/18/19 25 11:04 AM EST documented as of this encounter Care Teams Oracle Forms Developer Relationship Specialty Start Date End Date Gracie Whitfield MD [address] [place] [address] PCP - General Family Medicine 06/12/18 documented as of this encounter
--- OUTSIDE RECORDS SUMMARY | 2025-06-21 02:12 | XMS_ITS | Encounter Summary ---
Author Organization [employer] Address [address] [facility] 7 [place] [address] Care Team Providers Care Cornice Maker Name Role Phone Gracie Whitfield MD Primary Care Provide r Encounter Details Date Type Department Care Team (Late st Contact Info) Description 04/26/2023 Abstract [facility] MED[facility]INE [address] [place] [address] Gracie Whitfield MD [address] [place] [address] Social History Tobacco Use Types Packs/Day Years [...] 9:00 AM EST Office Visit [facility] OPTOMETRY [address] [place] [address] Alex, Monet, OD [address] [place] [address] 08/19/2025 9:00 AM EST Office Visit [facility] MEDICINE [address] [place] [address] Gracie Whitfield MD [address] [place] [address] documented as of this encounter Procedures Procedure Name Priority Date/Time Associated Diagnosis Comments COLONOSCOPY Routine 02/05/2016 documented in this encounter Results * Hm Colonoscopy (02/05/2016) Colonoscopy Normal Normal Narrative Larissa Barajas - 02/05/2016 Recommended 10 year follow up Historical Provider HEALTH MAINTENANCE Edited Result - Final documented in this encounter Visit Diagnoses Not on filedocumented in this encounter Care Teams Cornice Maker Relationship Specialty Start Date End Date Gracie Whitfield MD [address] [place], [place] [phone] PCP - General Family Medicine 06/12/18 documented as of this encounter
--- OUTSIDE RECORDS SUMMARY | 2025-06-21 02:12 | XMS_ITS | Encounter Summary ---
Author Organization [employer] Address [address] [facility] 7 [place] [address] Care Team Providers Care Hardness Tester Name Role Phone Gracie Whitfield MD Primary Care Provide r Encounter Details Date Type Department Care Team ([facility] st Contact Info) Description 02/01/2024 Telephone [facility] MED[facility]INE [address] [place] [address] Gracie Whitfield MD [address] [place] [address] Social History Tobacco Use Types Packs/Day Years [...] 9:00 AM EST Office Visit [facility] OPTOMETRY [address] [place] [address] Alex, Monet, OD [address] [place] [address] 08/19/2025 9:00 AM EST Office Visit [facility] MEDICINE [address] [place] [address] Gracie Whitfield MD [address] [place] [address] documented as of this encounter Visit Diagnoses Not on filedocumented in this encounter Additional Health Concerns Assessment Noted Time PHQ-9 Depression Total Score: 0 01/16/20 24 3:13 PM EDT documented as of this encounter Care Teams Hardness Tester Relationship Specialty Start Date End Date Gracie Whitfield MD [address] [place], [place] [phone] PCP - General Family Medicine 06/12/18 documented as of this encounter
--- OUTSIDE RECORDS SUMMARY | 2025-06-21 02:12 | XMS_ITS | Encounter Summary ---
Author Organization [employer] Address [address] [place] [address] [address] [place] [address] Care Team Providers Care Self Propelled Hot Mix Roller Operator Name Role Phone Gracie Whitfield MD Primary Care Provide r Encounter Details Date Type Department Care Team ([facility] Contact Info) Description 07/26/2022 Telephone [facility] MEDICINE [address] [place] [address] Gracie Whitfield MD [address] [place] [address] Social History Tobacco Use Types Packs/Day Years [...] Upcoming Encounters Date Type Department Care Team ([facility] Contact Info) Description 06/23/2025 9:00 AM EST Office Visit [facility] OPTOMETRY [address] [place] [address] Monet Johnson, OD [address] [place], [place] [phone] 08/19/2025 9:00 AM EST Office Visit [facility] MEDICINE [address] [place], [place] [phone] Gracie Whitfield MD [address] [place] [address] documented as of this encounter Visit Diagnoses Not on filedocumented in this encounter Care Teams Self Propelled Hot Mix Roller Operator Relationship Specialty Start Date End Date Gracie Whitfield MD [address] [place] [address] PCP - General Family Medicine 06/12/18 documented as of this encounter
--- OUTSIDE RECORDS SUMMARY | 2025-06-21 02:12 | XMS_ITS | Encounter Summary ---
Author Organization [employer] Address [address] [place] [address] [place] [address] Care Team Providers Care Machine Binding Folder Name Role Phone Gracie Whitfield MD Primary Care Provide r Reason for Visit * Reason Comments Med Refill Encounter Details Date Type Department Care Team ([facility] st Contact Info) Description 2025 Refill [facility] [address] [place] [address] Gracie Whitfield MD [address] [place] [address] Moderate persistent asthma, unspecified whether complicated Social [...] with others, in a hotel, in a jail, living outside on the street, on a [...] Description 06/23/2025 9:00 AM EST Office Visit [facility] OPTOMETRY [address] [place] [address] Monet Johnson, OD [address] [place] [address] 08/19/2025 9:00 AM EST Office Visit [facility] [address] [place] [address] Gracie Whitfield MD [address] [place] [address] documented as of this encounter Visit Diagnoses Diagnosis Moderate persistent asthma, unspecified whether complicated documented in this encounter Additional Health Concerns Assessment Noted Time PHQ-9 Depression Total Score: 0 07/18/19 25 11:04 AM EST documented as of this encounter Care Teams Machine Binding Folder Relationship Specialty Start Date End Date Gracie Whitfield MD [address] [place] [address] PCP - General Family Medicine 06/12/18 documented as of this encounter
[2025-06-21 03:49] VITALS: BP 126/71; PULSE 69; RESP 18; O2SAT 96
[2025-06-21 04:11] LABS: Troponin-I High Sensitivity < 2.7 ng/L (<3.5-17.0)
[2025-06-21 04:48] VITALS: BP 147/78; BP 155/85; BP 157/84; PULSE 88; PULSE 92; PULSE 93
--- NOTE | 2025-06-21 05:41 | ED_ITS ---
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 Patient reports that she went to bed around 10:00 p.m. feeling well. She woke up a couple hours later feeling very dizzy with a headache. She reports that she vomited once pain She describes the dizziness as the room was spinning around me. Her happened to her before. She denies any fevers, chills pain Denies any trauma to the head or neck pain History does not take any blood thinners. Ascending recent colds pain She had an episode of chest pain after vomiting but this has since resolved denies any neck pain Related Data Home Medications ?Medication ?Instructions ?Recorded ?Confirmed epinephrine 0.3 mg/0.3 mL 0.3 mg IM Q10M PRN 10/22/20 01/03/24 injection, auto-injector (EpiPen) ibuprofen 200 mg capsule 400 mg PO Q8H 10/22/2001/02 loratadine 10 mg capsule 10 mg PO DAILY 10/22/2012/15 methocarbamol 500 mg tablet 500 mg PO TID 10/22/20 amlodipine 10 mg tablet 10 mg PO QAM 07/12/23 cyclobenzaprine 10 mg tablet 10 mg PO TID 07/12/23 fluticasone propionate 50 1 spray intranasal QAM 07/1201/03/24 mcg/actuation nasal spray,suspension loratadine 10 mg tablet 10 mg PO QAM PRN allergies 1 09/12/22 01/03/24 lorazepam 0.5 mg tablet 0.5 mg PO DAILY PRN anxiety 07/12/23 01/03/24 Previous Rx's ?Medication ?Instructions ?Recorded lidocaine 5 % topical patch 1 patch topical DAILY #15 ea 12/18/20 (Lidoderm) naproxen 500 mg tablet 500 mg PO BID PRN pain #20 t abs 12/18/20 albuterol sulfate 90 mcg/actuation 2 puff inhalation Q ID prn wheezing 06/21/21 aerosol inhaler (ProAir HFA) #8.5 grams linaclotide 72 mcg capsule 72 mcg PO QAM #30 caps 10/16 03/07 (Linzess) omeprazole 20 mg capsule,delayed 20 mg PO DAILY #30 ca ps 11/11/21 release methocarbamol 500 mg tablet 500 mg PO TID PRN muscle s pasm #14 07/29/22 tabs amoxicillin 875 mg-potassium 1 tab PO BID Otitis media #20 tabs 08/31/22 clavulanate 125 mg tablet udivjauz-yefynworb-asuoijuqu 3.5 4 drp otic (ear) left Q8H Otitis 08/31/22 mg-10,000 unit/mL-1 % ear externa 10 days #10 mL drops,susp ciprofloxacin 0.2 %-hydrocortisone 3 drp otic (ears) B ID 7 days #10 mL 09/05/22 1 % ear drops,suspension acetaminophen 300 mg-codeine 30 mg 1 tab PO TID PRN se helga pain #14 08/30/23 tablet tabs tramadol 50 mg tablet 50 mg PO TID PRN pain #20 ta bs 09/01/23 erythromycin 5 mg/gram (0.5 %) eye 1 appl ophthalmic ( eye) BID #3.5 09/08/23 ointment grams hxnrvbavnv-wxwefkaenepcf-ohzptnbf 1 cap PO Q4-6H PRN h eadache #14 01/31/24 50 mg-300 mg-40 mg capsule caps (Fioricet) mupirocin 2 % topical ointment 1 appl topical TID #22 grams 05/05/24 azithromycin 250 mg tablet See Rx Instructions PO .COM PLEX #6 07/14/24 tabs benzonatate 100 mg capsule 100 mg PO TID PRN cough #14 caps 07/14/24 prednisone 20 mg tablet 40 mg (2 x 20 mg) PO DAILY 5 days 07/14/24 #10 tabs amoxicillin 500 mg capsule 500 mg PO BID #19 caps 10/16 01/08 cyclobenzaprine 10 mg tablet 10 mg PO TID PRN muscle s pasm #10 11/09/24 tabs lidocaine 5 % topical patch 1 patch topical DAILY #15 ea 11/09/24 meclizine 25 mg tablet 25 mg PO TID PRN dizziness # 20 tabs 06/21/25 Allergies Allergy/AdvReac Type Severity Reaction Status Date / Time No Known Allergies (No Known Allergy Unknown Verified 06/20/25 23:37 Allergies*) Review of Systems 2 Constitutional: Constitutional: Denies body ache(s), Denies chills, Denies fever(s), Denies frequent falls and Reports headache(s) Eyes: Eyes: Denies blurry vision, Denies irritation and Denies itchy eyes ENT: Reports vertigo, Reports dizziness and Reports headache(s) Cardiovascular: Cardiovascular: Denies chest pain and Denies dyspnea on exertion Respiratory: Respiratory: Denies cough and Denies dyspnea on exertion Gastrointestinal: Gastrointestinal: Denies abdominal pain, Reports nausea and Reports vomiting Musculoskeletal: Musculoskeletal: Denies back pain Integumentary/Breasts: Skin/Breast: Denies rash Neurologic: Reports vertigo, Reports dizziness, Denies frequent falls and Reports headache(s) Psychiatric: Psychiatric: Denies anxiety Allergic/Immunologic: Allergic/Immunologic: Denies itchy eyes PMFSH Past Medical History Medical History Incisional hernia Diabetes Surgical History History of endoscopy H/O colonoscopy H/O section complicating Social History Social History Household Members: Family Housing: House Alcohol intake: never Patient Tobacco Use Status: Former Tobacco user Smoked in Last 30 Days: No Use of substances other than those prescribed or required for medical reasons: No Advance Directives: No Advance Directives Information Provided: No Patient : No Physical Exam ED Vital Signs: Vital Signs - 24 hr 06/20/25 23:35 06/21/25 01:54 06/21/25 03:49 Temperature 97.9 F 97.7 F Pulse Rate 78 75 69 Respiratory Rate 20 15 18 Blood Pressure 156/79 H 137/83 126/71 Pulse Oximetry 94 95 96 Oxygen Delivery Method Room Air Room Air Room Air 06/21/25 04:48 06/21/25 04:48 06/21/25 04:48 Temperature Pulse Rate 88 92 93 Respiratory Rate Blood Pressure 147/78 H 157/84 H 155/85 H Pulse Oximetry Oxygen Delivery Method BMI result Body Mass Index 31.4 Const General: healthy appearing, comfortable, no acute distress, alert and awake Nutritional Appearance: well nourished Orientation/consciousness: patient oriented x3 HENMT Head: Yes normocephalic and Yes atraumatic Eyes Eyelids: Yes eyelids normal Conjunctivae: conjunctivae normal Sclerae: sclerae normal Corneas: corneas normal Pupils: Equal, round and reactive pupils present EOM: EOMs intact bilaterally Neck Neck: Yes full ROM Resp Effort & Inspection: normal respiratory effort, able to speak in complete sentences and not labored Cardio Rate: regular rate Rhythm: regular rhythm GI Inspection: No distended Palpation (GI): Soft to palpation, not firm, nontender, no guarding and not rigid Skin General skin exam: elasticity normal Neuro General: patient oriented x3 Cranial nerves: Yes CN's II-XII intact bilaterally, Yes Equal, round and reactive pupils present and Yes Bilaterally intact EOM present Cognition (Neuro): normal cognition Gait exam (Neuro): Normal gait present and not ataxic Motor exam (neuro): 5/5 motor strength present throughout, Pronator motor function not present, no tremor noted, no asterixis and Motor fasciculations not present Coordination: jpiwly-fg-ffdq test normal, fywo-ar-ojsk test normal, Romberg test negative and Normal rapid alternating movements of the distal upper extremity present (Neuro) Extrem Other: Moving all extremities well without any obvious deformities Course Reevaluation(s) Reevaluation #1: the patient initially had some dizziness when she walks herself with the bathroom. She was subsequently treated with IV fluids and Versed with good resolution of her dizziness. At this time I feel she is stable for discharge home Time: 06:02 Medications Administered Discontinued Medications Generic Name Dose Route Start Last Admin Trade Name Freq PRN Reason Stop Dose Admin Sodium Chloride 1,000 mls @ 999 mls/hr 06/21/25 05:00 06/21/25 05:18 Ns IV 06/21/25 06:00 999 mls/hr .Q1H1M PARMINDER Administration Meclizine HCl 50 mg 06/21/25 03:36 06/21/25 03:51 Meclizine Hcl 25 Mg Tablet PO 06/21/25 03:37 50 mg ONCE ONE Administration Midazolam HCl 2 mg 06/21/25 04:57 06/21/25 05:18 Midazolam Hcl 2 Mg/2 Ml Vial IVPUSH 06/21/25 04:58 2 mg ONCE ONE Administration Medical Decision Making Medical Decision Making [facility] Narrative: 65-year-old female presents for evaluation of dizziness described as room spinning. This has never happened before. Her physical exam is reassuring, she has an NIH stroke score of 0. She is not ataxic whatsoever. Given that she has no history of vertigo I think it is appropriate get a CT scan of the brain. I have a very low suspicion for large vessel occlusion or posterior stroke and therefore we will defer CTA head and neck at this time. the patient had 2 troponins both of which were normal, EKG is nonischemic, she rules out for ACS. I think her chest pain may be related to anxiety or GERD from vomiting. The patient reports at time my evaluation that her symptoms have greatly improved and she has minimal headache and minimal dizziness. Differential Diagnosis Differential Diagnoses: The differential diagnosis associated with the presentation includes Acute headache Benign paroxysmal positional vertigo Orthostasis ZOE Intracranial hemorrhage Chest pain Admission/Observation Consideration of admission/observation: Escalation of care including admission/observation considered Lab Data [facility] Lab Attestation statement: I reviewed the patient's lab results. no leukocytosis or anemia. Normal platelet count. No electrolyte abnormalities warranting dimension. Random glucose of 178. No evidence of DKA. The patient is a known diabetic 06/21/25 00:07 06/21/25 00:07 Labs: Lab Results 06/21/25 06/21/25 Range/Units 00:07 03:47 WBC 8.2 (4.8-10.8) X10*3/uL RBC 5.09 (4.20-5.50) X10*6/uL Hgb 14.3 (12.0-16.0) g/dl Hct 42.2 (37.0-47.0) % MCV 82.9 (80.0-98.0) fL MCH 28.1 (27.0-33.0) pg MCHC 33.9 (31.0-35.0) g/dl RDW 13.4 (11.0-16.0) % Plt Count 162 D (160-400) X10*3/uL MPV 12.1 (9.4-12.3) fL Immature Gran % (Auto) 0.4 (0.0-0.4) % Neut % (Auto) 53.7 (45-73) % Lymph % (Auto) 35.2 (20-40) % [place] % (Auto) 7.7 (2-11) % Eos % (Auto) 1.8 (0-4) % Baso % (Auto) 1.2 (0-2) % Lymph # (Auto) 2.9 (1.2-4.9) X10*3/uL [place] # (Auto) 0.6 (0.1-1.2) X10*3/uL Eos # (Auto) 0.2 (0.0-0.4) X10*3/uL Baso # (Auto) 0.1 (0.0-0.2) X10*3/uL Abs Immat Gran (auto) 0.03 (0.00-0.03) X10*3/uL Absolute Neuts (auto) 4.4 (2.0-8.3) x10*3/uL Absolute Nucleated RBC 0.000 (0.0-0.012) X10*3/uL Nucleated RBC % (auto) 0.0 (0.0-0.2) /100WBC Sodium 141 (135-145) mmol/L Potassium 4.4 (3.3-5.1) mmol/L Chloride 110 H (96-108) mmol/L Carbon Dioxide 22 (22-29) mmol/L Anion Gap 13 (12-20) BUN 20 H (9-16) mg/dL Creatinine 0.65 (0.5-1.4) mg/dL Estim Creat Clear Calc 87.7 Estimated GFR > 60 Random Glucose 178 H (60-115) mg/dL Calcium 9.1 (8.4-10.2) mg/dL Total Bilirubin 0.2 (0.0-1.0) mg/dL AST 25 (5-31) U/L ALT 30 (0-31) U/L Alkaline Phosphatase 93 (39-117) U/L Troponin I High Sens < 2.7 < 2.7 (<3.5-17.0) ng/L Total Protein 7.6 (6.5-8.0) g/dL Albumin 4.6 (3.5-5.0) g/dL Influenza Type A (PCR) NEGATIVE (Negative) Influenza Type B (PCR) NEGATIVE (Negative) RSV RNA Qual (PCR) NEGATIVE (Negative) SARS-CoV-2 RNA (RT-PCR) NEGATIVE (Negative) Independent Interpretation I performed an independent interpretation of an: EKG Interpretation: normal sinus rhythm with a rate of [address] segment changes. Nondiagnostic EKG Radiology Impression Discussion of test interpretation with radiology: I have reviewed the radiologist's reading. Radiologist Impression: Findings: No intra-axial mass, midline shift, hydrocephalus, or acute hemorrhage. No lobar predominant atrophy. Mild microvascular changes. There is no obstructive mucosal sinus disease. Mastoid air cells are aerated. The orbits are within normal limits. No skull fracture. IMPRESSION: 1. No acute intracranial findings. This document has been electronically signed by: Dawit Mitchell III, MD PHD on 06/21/2025 04:43:26 Discharge Plan Discharge Clinical Impression: Peripheral positional vertigo Patient Disposition: Home, Self-Care Instructions: Vertigo (ED) Additional Instructions: your workup in the ER today was reassuring. Your exam is most consistent with peripheral vertigo. Drink lots of fluids, small sips at a time. You may use meclizine as needed for any further dizziness. Follow up with your doctor, return for new or worsening symptoms Prescriptions: New meclizine 25 mg tablet 25 mg PO TID PRN (Reason: dizziness) Qty: 20 0RF No Action acetaminophen-codeine 300-30 mg tablet 1 tab PO TID PRN (Reason: severe pain) Qty: 14 0RF tramadol 50 mg tablet 50 mg PO TID PRN (Reason: pain) Qty: 20 0RF lidocaine [Lidoderm] 5 % adhesive patch,medicated 1 patch topical DAILY Qty: 15 0RF Rx Instructions: leave on most painful area for up to 12 hrs naproxen 500 mg tablet 500 mg PO BID PRN (Reason: pain) Qty: 20 0RF qjosstfm-nsewotcrc-CC 3.5-10,000-1 mg/mL-unit/mL-% drops,suspension 4 drp otic (ear) left Q8H 10 Days Qty: 10 0RF amoxicillin-pot clavulanate 875-125 mg tablet 1 tab PO BID Qty: 20 0RF ciprofloxacin-hydrocortisone 0.2-1 % drops,suspension 3 drp otic (ears) BID 7 Days Qty: 10 0RF albuterol sulfate [ProAir HFA] 90 mcg/actuation HFA aerosol inhaler 2 puff inhalation QID Qty: 8.5 0RF methocarbamol 500 mg tablet 500 mg PO TID PRN (Reason: muscle spasm) Qty: 14 0RF azithromycin 250 mg tablet See Rx Instructions .ROUTE .COMPLEX Qty: 6 0RF Rx Instructions: take 500 mg today (day 1), then 250 mg for 4 days (days 2-5) prednisone 20 mg tablet 40 mg PO DAILY 5 Days Qty: 10 0RF benzonatate 100 mg capsule 100 mg PO TID PRN (Reason: cough) Qty: 14 0RF erythromycin 5 mg/gram (0.5 %) ointment 1 appl ophthalmic (eye) BID Qty: 3.5 0RF mucyknfwxs-gxagubxqjnlxd-psja [Fioricet] 50-300-40 mg capsule 1 cap PO Q4-6H PRN (Reason: headache) Qty: 14 0RF mupirocin 2 % ointment 1 appl topical TID Qty: 22 0RF amoxicillin 500 mg capsule 500 mg PO BID Qty: 19 0RF cyclobenzaprine 10 mg tablet 10 mg PO TID PRN (Reason: muscle spasm) Qty: 10 0RF lidocaine 5 % adhesive patch,medicated 1 patch topical DAILY Qty: 15 0RF Rx Instructions: leave on most painful area for up to 12 hrs ibuprofen 200 mg capsule 400 mg PO Q8H epinephrine [EpiPen] 0.3 mg/0.3 mL auto-injector 0.3 mg IM Q10M PRN Rx Instructions: for 2 doses loratadine 10 mg capsule 10 mg PO DAILY methocarbamol 500 mg tablet 500 mg PO TID Linzess 72 mcg capsule 72 mcg PO QAM Qty: 30 6RF omeprazole 20 mg capsule,delayed release(DR/EC) 20 mg PO DAILY Qty: 30 6RF amlodipine 10 mg tablet 10 mg PO QAM lorazepam 0.5 mg tablet 0.5 mg PO DAILY PRN (Reason: anxiety) fluticasone propionate 50 mcg/actuation spray,suspension 1 spray intranasal QAM cyclobenzaprine 10 mg tablet 10 mg PO TID loratadine 10 mg tablet 10 mg PO QAM PRN (Reason: allergies) Print Language: Faroese
[2025-06-21 06:00] VITALS: BP 124/65; PULSE 73; RESP 18; O2SAT 97
[2025-06-21 06:48] VITALS: BP 124/65; PULSE 75; RESP 16; TEMP 36.5; O2SAT 94
== END 2025-06-21 06:49 | disposition home or self-care (01) ==
PROVIDERS: Physician Assistant; Emergency Provider Emergency Medicine; PCP Internal Medicine
DX: H81.399 Other peripheral vertigo, unspecified ear (principal); R51.9 Headache, unspecified; R07.9 Chest pain, unspecified; I10 Essential (primary) hypertension; E11.9 Type 2 diabetes mellitus without complications; J45.909 Unspecified asthma, uncomplicated
CPT/HCPCS: 36415; 70450; 71045; 80053; 84484; 85025; 87637; 93005; 96361; 96374; 99284; 99285; J2250

== ENCOUNTER → 2025-06-20 23:19 | Outpatient (BNV) | payer MEDICAID, SELFPAY | PROVIDERS: Emergency Provider Emergency Medicine; PCP Internal Medicine; Visit Provider Internal Medicine | DX: R07.9 Chest pain, unspecified (principal) | CPT/HCPCS: 93010 ==

== ENCOUNTER → 2025-06-21 00:10 | Outpatient (BNV) | payer MEDICAID, SELFPAY | PROVIDERS: PCP Internal Medicine; Visit Provider Radiology Diagnostic Radiology | DX: R51.9 Headache, unspecified (principal); R42 Dizziness and giddiness; R07.9 Chest pain, unspecified | CPT/HCPCS: 70450; 71045 ==